=== PATIENT | male | born 1995 | race Caucasian/White ===

== ENCOUNTER 2017-06-06 12:31 | Emergency (ER) | payer SELFPAY ==
[~2017-06-06] VITALS: Ht 185.4 cm; Wt 104.1 kg
[2017-06-06 12:37] VITALS: TEMP 37.3; Ht 185.4 cm; Wt 104.1 kg
[2017-06-06] MEDS ORDERED: PROCHLORPERAZINE 5 MG/ML 2 ML VIAL IV STA (13:18)
[2017-06-06] MEDS ORDERED: DiphenhydrAMINE HCL 50 MG/ML VIAL IV STA (13:18)
[2017-06-06] MEDS ORDERED: KETOROLAC TROMETHAMINE 30 MG/ML VIAL IV STA (13:18)
--- NOTE | 2017-06-06 13:50 | DIAGNOSTIC IMAGING REPORT ---
CHEST ONE VIEW PORTABLE CLINICAL HISTORY: sob, fever COMPARISON STUDY: 01/18/2016 FINDINGS: The bones soft tissues and hemidiaphragms are normal. The cardiomediastinal silhouette is normal. The lungs are clear. The pulmonary vasculature is normal. IMPRESSION: Negative chest. The above report was generated using voice recognition software. It may contain grammatical, syntax or spelling errors. Electronically signed by: Mark Pierce M.D. 06/06/2017 1:49 PM Dictated Date/Time: 06/06/2017 1:48 PM
[2017-06-06 13:56] LABS: BASO % 0.3 %; BASO ABS # 0.02 K/uL (0-0.2); COMPLETE YES; EOS % 3.2 %; HEMATOCRIT 38.5 % (42-52); IG% 0.3 %; LYMPH % 19.1 %; LYMPH ABS # 1.24 K/uL (1.2-3.4); MEAN CELL VOLUME 94.6 fL (80-100); MEAN CORPUSCULAR HEMOGLOBIN 33.4 pg (25-34); MEAN CORPUSCULAR HGB CONC 35.3 g/dl (32-36); MEAN PLATELET VOLUME 10.1 fL (7.4-10.4); MONO % 8.8 %; NEUT % 68.3 %; PLATELET COUNT 181 K/uL (130-400); RED BLOOD COUNT 4.07 M/uL (4.7-6.1); WHITE BLOOD COUNT 6.49 K/uL (4.8-10.8)
[2017-06-06 14:15] LABS: BUN/CREATININE RATIO 10.4 (10-20); CALCIUM 8.8 mg/dl (8.5-10.1); CREATININE 0.96 mg/dl (0.60-1.40); POTASSIUM 4.2 mmol/L (3.5-5.1)
[2017-06-06 14:34] VITALS: BP 121/64; PULSE 60; O2SAT 97
--- NOTE | 2017-06-06 14:47 | EMERGENCY ROOM VISIT NOTE ---
History First contact with patient: 13:04 Chief Complaint: HEADACHE Stated Complaint: CONSTANT LAFLEUR, CHEST PAIN, SORE THROAT History of Present Illness The patient is a 22 year old male who presents to the Emergency Room with complaints of headache 4 days. The patient states that he has had a constant headache for the past 4 days. He attempted to go to work today but states that he was unable to due to the pain. He has been lightheaded and states that his eyes are sensitive to touch. The patient also notes that he has had shortness of breath, fever, sore throat and stuffy nose. He believes the fever has resolved. He states the headache is all over his head. He does typically have headaches frequently, but states that they usually do not last as long as this. He denies any history of migraines. The patient does not have a primary care provider in the area. He states he is healthy. He denies neck pain/stiffness, numbness or weakness, chest pain or cough. He rates his overall discomfort a 7/ 10. He has tried over the counter medication without relief. He denies any nausea or vomiting. Review of Systems A complete 10 point review of systems was reviewed with the patient with pertinent positives and negatives as per history of present illness. All else were negative. Past Medical/Surgical History Medical Problems: (1) Cannabis Abuse-Unspec (2) Drug Abuse Nec-Unspec (3) Tobacco Use Disorder Family History Diabetes mellitus Social History Smoking Status: Current Every Day Smoker Alcohol Use: none Drug Use: marijuana, other Marital Status: Housing Status: lives with family Occupation Status: student Current/Historical Medications No Active Prescriptions or Reported Meds Physical Exam Vital Signs Date Time Temp Pulse Resp B/P (MAP) Pulse Ox O2 Delivery O2 Flow Rate FiO2 06/06/17 14:34 60 18 121/64 97 Room Air 06/06/17 13:39 68 16 130/71 100 Room Air 06/06/17 12:37 37.3 93 17 144/72 97 Room Air Physical Exam VITALS: Vitals are noted on the nurse's note and reviewed by myself. Vital signs stable. GENERAL: This is a 22-year-old male, in no acute distress, nondiaphoretic, well- developed well-nourished. SKIN: The skin was without rashes. HEAD: Normocephalic atraumatic. EARS: External auditory canals clear, tympanic membranes pearly russo without erythema or effusion bilaterally. EYES: Pupils equal round and reactive to light and accommodation. Conjunctivae without injection, sclerae without icterus. Extraocular movements intact. NOSE: Patent, turbinates without inflammation or discharge. MOUTH: Mucous membranes moist. Tonsils are not enlarged. Pharynx without erythema or exudate. NECK: Supple without nuchal rigidity. No lymphadenopathy. Cervical spine is nontender. No meningismus. HEART: Regular rate and rhythm without murmurs gallops or rubs. LUNGS: Clear to auscultation bilaterally without wheezes, rales or rhonchi. MUSCULOSKELETAL: Full range of motion in all extremities. Strength 5/5 throughout. NEURO: Patient was alert and oriented to person place and time. Normal sensation to light and sharp touch. No focal neurological deficits. Medical Decision & Procedures ER Provider Diagnostic Interpretation: CHEST ONE VIEW PORTABLE CLINICAL HISTORY: sob, fever COMPARISON STUDY: 01/18/2016 FINDINGS: The bones soft tissues and hemidiaphragms are normal. The cardiomediastinal silhouette is normal. The lungs are clear. The pulmonary vasculature is normal. IMPRESSION: Negative chest. Laboratory Results 06/06/17 13:30 Red Blood Count 4.07, Mean Corpuscular Volume 94.6, Mean Corpuscular Hemoglobin 33.4, Mean Corpuscular Hemoglobin Concent 35.3, Mean Platelet Volume 10.1, Neutrophils (%) (Auto) 68.3, Lymphocytes (%) (Auto) 19.1, Monocytes (%) (Auto) 8.8, Eosinophils (%) (Auto) 3.2, Basophils (%) (Auto) 0.3, Neutrophils # (Auto) 4.43, Lymphocytes # (Auto) 1.24, Monocytes # (Auto) 0.57, Eosinophils # (Auto) 0.21, Basophils # (Auto) 0.02 06/06/17 13:30 Test 06/06/17 13:30 06/06/17 13:35 White Blood Count 6.49 K/uL (4.8-10.8) Red Blood Count 4.07 M/uL (4.7-6.1) Hemoglobin 13.6 g/dL (14.0-18.0) Hematocrit 38.5 % (42-52) Mean Corpuscular Volume 94.6 fL (80-100) Mean Corpuscular Hemoglobin 33.4 pg (25-34) Mean Corpuscular Hemoglobin Concent 35.3 g/dl (32-36) Platelet Count 181 K/uL (130-400) Mean Platelet Volume 10.1 fL (7.4-10.4) Neutrophils (%) (Auto) 68.3 % Lymphocytes (%) (Auto) 19.1 % Monocytes (%) (Auto) 8.8 % Eosinophils (%) (Auto) 3.2 % Basophils (%) (Auto) 0.3 % Neutrophils # (Auto) 4.43 K/uL (1.4-6.5) Lymphocytes # (Auto) 1.24 K/uL (1.2-3.4) Monocytes # (Auto) 0.57 K/uL (0.11-0.59) Eosinophils # (Auto) 0.21 K/uL (0-0.5) Basophils # (Auto) 0.02 K/uL (0-0.2) RDW Standard Deviation 42.2 fL (36.4-46.3) RDW Coefficient of Variation 12.4 % (11.5-14.5) Immature Granulocyte % (Auto) 0.3 % Immature Granulocyte # (Auto) 0.02 K/uL (0.00-0.02) Anion Gap 4.0 mmol/L (3-11) Est Creatinine Clear Calc Drug Dose 150.3 ml/min Estimated GFR () 127.7 Estimated GFR (Non- 110.2 BUN/Creatinine Ratio 10.4 (10-20) Calcium Level 8.8 mg/dl (8.5-10.1) Total Bilirubin 0.4 mg/dl (0.2-1) Aspartate Amino Transf (AST/SGOT) 19 U/L (15-37) Alanine Aminotransferase (ALT/SGPT) 23 U/L (12-78) Alkaline Phosphatase 53 U/L (45-117) Total Protein 7.3 gm/dl (6.4-8.2) Albumin 3.6 gm/dl (3.4-5.0) Globulin 3.7 gm/dl (2.5-4.0) Albumin/Globulin Ratio 1.0 (0.9-2) Influenza Type A Antigen Neg for Influ A (NEG) Influenza Type B Antigen Neg for Influ B (NEG) Medications Administered Medications (Trade) Dose Ordered Sig/Chiqui Route Start Time Stop Time Status Last Admin Dose Admin Ketorolac Tromethamine (Toradol Inj) 30 mg NOW STAT IV 06/06/17 13:18 06/06/17 13:20 DC 06/06/17 13:31 30 MG Prochlorperazine Edisylate (Compazine Inj) 10 mg NOW STAT IV 06/06/17 13:18 06/06/17 13:20 DC 06/06/17 13:31 10 MG Diphenhydramine HCl (Benadryl Inj) 25 mg NOW STAT IV 06/06/17 13:18 06/06/17 13:20 DC 06/06/17 13:31 25 MG Medical Decision The differential diagnosis includes acute intracranial bleed, meningitis, encephalitis, mass or mass effect, sinusitis, infection, tumor, headache, temporal arteritis and carbon monoxide exposure, and migraine. The patient is a 22-year-old male who presents today complaining of headache and flulike symptoms. Patient is afebrile on exam. No evidence of meningismus. Labs revealed no leukocytosis, anemia or concerning electrolyte abnormalities. Influenza testing was negative. This is not the worst headache of the patient's life and there are no neurological complaints concerning for subarachnoid hemorrhage. Patient was treated with Toradol, Benadryl and Compazine and on reevaluation was sleeping and had improvement of symptoms. Patient was encouraged to continue [id number] medications at home and follow-up with a primary care provider as needed. Based on the patient's presentation and work up, I feel the patient is stable for outpatient treatment. The patient was educated to return to the emergency department for any worsening of their current condition or new/concerning symptoms. He will follow up with primary care provider. Medication Reconcilliation Current Medication List: was personally reviewed by me Blood Pressure Screening Patient's blood pressure: Normal blood pressure Impression Primary Impression: Headache Departure Information Dispostion Home / Self-Care Condition GOOD Prescriptions No Active Prescriptions or Reported Meds Referrals No Doctor, Assigned (PCP) Patient Instructions My [facility] Additional Instructions You have been treated in the Emergency Department for a Headache. You have received pain medicine in the emergency department which impairs your ability to operate a vehicle. It is illegal for you to drive after receiving these medicines. For pain control, you can use the following zmdh-cio-zqfernt medicines (if >12 yo): - Regular strength (325mg/tab) Tylenol (acetaminophen) 2 tabs every 4-6 hours as needed. Do not exceed 12 tablets in a 24 hour period. Avoid taking more than 4 grams (4000 mg) of Tylenol per day. This includes any other sources of acetaminophen you may take on a regular basis. - Regular strength (200 mg/tab) Advil (ibuprofen) 1-2 tabs every 4-6 hours as needed. Do not exceed a dose of 3200 mg per day. You may try an xxos-koo-[id number] medication such as Excedrin migraine for relief of your headache. You should relax in a quiet, dark place for the rest of the day. Avoid any possible triggers including: cigarette smoke, caffeine, nicotine, chocolate, wine, beer, loud noises or music, or bright lights. You should establish care with a primary care provider and call for a follow-up appointment. Return to the Emergency Department if your current symptoms worsen despite treatment course outlined above, or if you develop any of the following symptoms : intractable pain despite aforementioned treatment course, visual disturbances , loss of vision, unilateral weakness or facial drooping, slurring of speech, loss of coordination, or loss of consciousness. Problem Qualifiers Primary Impression: Headache
== END 2017-06-06 14:57 | disposition home or self-care (01) ==
LOC: C.EDB 12:32 → C.EDC 14:57
DX: R51 Headache (principal); F17.200 Nicotine dependence, unspecified, uncomplicated; F12.10 Cannabis abuse, uncomplicated; Z83.3 Family history of diabetes mellitus

== ENCOUNTER 2017-06-11 17:52 | Emergency (ER) | payer SELFPAY ==
[~2017-06-11] VITALS: Ht 188 cm; Wt 103.5 kg
[2017-06-11 17:56] VITALS: TEMP 37; Ht 188 cm; Wt 103.5 kg
[2017-06-11] MEDS ORDERED: DOXYCYCLINE HYCLATE 100 MG CAP PO STA (18:19)
[2017-06-11] MEDS ORDERED: AZITHROMYCIN 250 MG TAB PO STA (18:28)
[2017-06-11] MEDS ORDERED: DOXY100C PO (18:29)
[2017-06-11] MEDS ORDERED: CEFTRIAXONE SOD 350MG/ML 1 GM VIAL IM ONE (18:30)
--- NOTE | 2017-06-11 18:36 | EMERGENCY ROOM VISIT NOTE ---
History Report prepared by Nicky: [employer] Under the Supervision of: Dr. Venu Barnhart M.D. First contact with patient: 18:12 Chief Complaint: STD MALE Stated Complaint: REFERRED Nursing Triage Summary: Pt reports sore throat, fatigue, bloody drainage from penis x 2 weeks. Exposed to someone with gonorrhea approx 2 mos ago. History of Present Illness The patient is a 22 year old male who presents to the Emergency Room with complaints of worsening penile discharge beginning a few days ago. He also complains of burning with urination, and fatigue. He had a known exposure to Gonorrhea two weeks ago. The patient states that the exposure was sexual with his female friend who he has known for a long time. His friend had STD testing which was only positive for Gonorrhea. He has no prior history of STD. The patient had a sore throat last week, but it has since resolved. Source of History: patient Onset: A few days ago Position: other (penis) Quality: other (discharge) Timing: worsening Associated Symptoms: + sorethroat (resolved), + urinary symptoms (burning with urination), + fatigue Review of Systems See HPI for pertinent positives & negatives. A total of 10 systems reviewed and were otherwise negative. Past Medical & Surgical Medical Problems: (1) Cannabis Abuse-Unspec (2) Drug Abuse Nec-Unspec (3) Tobacco Use Disorder Family History Diabetes mellitus Social History Smoking Status: Current Every Day Smoker Alcohol Use: none Drug Use: marijuana, other Marital Status: Housing Status: lives with family Occupation Status: student Current/Historical Medications Scheduled Doxycycline Hyclate (Vibramycin), 100 MG PO BID Allergies Coded Allergies: Penicillins (Unverified Allergy, Unknown, stomach issues, 06/06/17) Physical Exam Vital Signs Date Time Temp Pulse Resp B/P (MAP) Pulse Ox O2 Delivery O2 Flow Rate FiO2 06/11/17 17:56 37.0 86 18 133/82 99 Room Air Physical Exam GENERAL: Patient is in no acute distress. HEENT: No acute trauma, normocephalic atraumatic, mucous membranes moist, no nasal congestion, no scleral icterus. No throat erythema or exudate. NECK: No stridor, no adenopathy, no meningismus, trachea is midline. LUNGS: Clear to auscultation bilaterally, no wheeze, no rhonchi, breath sounds equal. HEART: Without murmurs gallops or rubs, regular rate and rhythm. ABDOMEN: Soft, nontender, bowel sounds positive, no hernias, no peritonitis. : Circumcised. Cloudy, greenish discharge from the penile meatus. No cellulitis. EXTREMITIES: No cyanosis or edema, full range of motion of all the joints without pain or difficulty, no signs for acute trauma. NEUROLOGIC: Oriented x 3, no acute motor or sensory deficits, no focal weakness. SKIN: No rash, no jaundice, no diaphoresis. Medical Decision & Procedures Laboratory Results Test 06/11/17 18:19 Laboratory results reviewed by me. ED Course 1812: The patient was evaluated in room C8. A complete history and physical exam was performed. 1818: Ordered Vibramycin Cap 100 mg PO. 1827: Ordered Zithromax Tab 1000 mg PO. 1829: Ordered Rocephin 500 mg IM. 1844: Reevaluated the patient. Discussed results and discharge instructions: he verbalized understanding and agreement. The patient is ready for discharge. Medical Decision The patient is a 22 year old male who presents to the ED with complaints of penile discharge. Differential diagnoses considered include STD, UTI, syphilis , scrotal cellulitis, and balanitis. The patient presents with penile discharge. He had a sexual encounter 2 weeks ago-this female has since tested positive for gonorrhea. The patient states that he feels fatigued. He has burning to urinate and penile discharge that he has noticed especially on his underwear. He has not had fever or vomiting. On exam, the patient does have penile discharge consistent with an STD. The patient was given oral Zithromax, oral doxycycline and IM ceftriaxone. I did order for a syphilis test, this result is pending. The patient is being discharged on doxycycline, twice a day for 2 weeks. He will return here for lack of improvement or if worsening. He will call here tomorrow for the syphilis testing result. Medication Reconcilliation Current Medication List: was personally reviewed by me Blood Pressure Screening Patient's blood pressure: Normal blood pressure Blood pressure disposition: Did not require urgent referral Impression Primary Impression: STD (male) Additional Impression: Penile discharge Scribe Attestation The scribe's documentation has been prepared under my direction and personally reviewed by me in its entirety. I confirm that the note above accurately reflects all work, treatment, procedures, and medical decision making performed by me. Departure Information Dispostion Home / Self-Care Prescriptions Doxycycline Hyclate (VIBRAMYCIN) 100 Mg Cap 100 MG PO BID for 14 Days, #28 CAP Prov: Venu Barnhart M.D. 06/11/17 Referrals No Doctor, Assigned (PCP) Forms HOME CARE DOCUMENTATION FORM, IMPORTANT VISIT INFORMATION, WORK / SCHOOL INSTRUCTIONS Patient Instructions My [facility] Additional Instructions return if worsening as we discussed call here for the syphilis testing tomorrow---[phone] motrin or tylenol for pain fluids doxycycline 2x per day for 2 weeks Problem Qualifiers
[2017-06-11 19:03] VITALS: BP 128/78; PULSE 80; O2SAT 100
== END 2017-06-11 18:58 | disposition home or self-care (01) ==
LOC: C.EDB 17:53 → C.EDC 18:58
DX: A64 Unspecified sexually transmitted disease (principal); R36.9 Urethral discharge, unspecified; F12.10 Cannabis abuse, uncomplicated; F17.210 Nicotine dependence, cigarettes, uncomplicated; Z83.3 Family history of diabetes mellitus

== ENCOUNTER 2017-06-12 20:22 | Inpatient (IN) | payer SELFPAY ==
[~2017-06-12] VITALS: Ht 188 cm; Wt 101.2 kg
[~2017-06-12 20:22] MED LIST: DOXY100C PO
[2017-06-12] MEDS ORDERED: ONDANSETRON INJ 2 MG/ML 2 ML VIAL IV STA (20:49)
[2017-06-12] MEDS ORDERED: ACETAMINOPHEN IV 100 ML IV STA (20:49)
[2017-06-12] MEDS ORDERED: MoRPHine SULFATE 10 MG/ML CARP/VIAL IV STA (20:49)
[2017-06-12] MEDS ORDERED: SODIUM CHLORIDE 0.9% 1000ML 1,000 ML IV STA (20:49)
--- NOTE | 2017-06-12 20:58 | EMERGENCY ROOM VISIT NOTE ---
History First contact with patient: 20:41 Chief Complaint: ABDOMINAL PAIN Stated Complaint: SEVERE RIGHT TORSO PAIN - HARD TO BREATH History of Present Illness The patient is a 22 year old male who presents to the Emergency Room with complaints of right flank pain that started suddenly 2 hours ago. He reports he was started on treatment for a UTI yesterday, on doxycycline. He has associated nausea, but denies vomiting. He states the pain starts in his right mid back and radiates down his right side to his groin area, constant, sharp and severe, worse with certain positions and taking a deep breath, can't seem to get comfortable, 10/10. He states the pain is also worse with ambulating or raising his right leg. He took some Excedrin today which he states did not help at all. He states he has never had any pain like this before. He denies any fevers/chills, chest pain, shortness of breath, palpitations, dizziness or passing out, cough or congestion, leg pain or swelling, recent long travel or surgeries, diarrhea, constipation, blood in stool, dysuria, hematuria, or rash. He denies any history of blood clots. Review of Systems A complete 10 point review of systems was reviewed with the patient with pertinent positives and negatives as per history of present illness. All else were negative. Past Medical/Surgical History Medical Problems: (1) Cannabis Abuse-Unspec (2) Drug Abuse Nec-Unspec (3) Tobacco Use Disorder Family History Diabetes mellitus Social History Smoking Status: Current Every Day Smoker Alcohol Use: none Drug Use: marijuana, other Marital Status: Housing Status: lives with family Occupation Status: student Current/Historical Medications Scheduled Doxycycline Hyclate (Vibramycin), 100 MG PO BID Allergies PCN Physical Exam Vital Signs Date Time Temp Pulse Resp B/P (MAP) Pulse Ox O2 Delivery O2 Flow Rate FiO2 06/12/17 23:17 37.4 87 18 127/64 97 Room Air 06/12/17 22:28 82 25 134/70 95 Room Air 06/12/17 21:39 97 06/12/17 20:36 37.6 107 20 148/63 98 Room Air Physical Exam CONSTITUTIONAL: No acute distress, but appears very uncomfortable and in pain, holding his right sided, rocking back and forth on the stretcher. Alert and oriented X 4. HEENT: Normocephalic, atraumatic. Pupils equal, round and reactive to light, EOMI. TMs normal. Pharynx normal. NECK: Supple, full active range of motion without discomfort. RESPIRATORY: Clear to auscultation bilaterally with no wheezing, crackles, rhonchi or stridor. Equal expansion bilaterally. CARDIOVASCULAR: Regular rate and rhythm with no murmurs, rubs or gallops. Normal peripheral perfusion. No edema. GASTROINTESTINAL: Significantly tender in the right flank and lateral abdomen diffusely, no rebound tenderness, positive guarding. Right CVA tenderness. Soft, nondistended. Bowel sounds present in all quadrants. MUSCULOSKELETAL: Full range of motion of all joints without discomfort. INTEGUMENTARY: No rash or other significant dermatologic conditions noted. NEUROLOGIC: Cranial nerves II-XII grossly intact. No focal neurologic deficits noted. Medical Decision & Procedures ER Provider Diagnostic Interpretation: ABDOMEN AND PELVIS CT WITHOUT CONTRAST CT DOSE: 1640.02 mGy.cm HISTORY: Right-sided Flank pain, eval for stone, pyelo TECHNIQUE: Multiaxial CT images of the abdomen and pelvis were performed without the use of intravenous and oral contrast according to the standard department stone protocol. A dose lowering technique was utilized adhering to the principles of ALARA. COMPARISON STUDY: Abdomen and pelvis CT 01/18/2016. FINDINGS: There is a punctate stone within the right kidney. No left renal calculi. No ureteral calculi. No hydronephrosis. The left lung base is clear. Trace right pleural effusion. Patchy groundglass densities within the right lung base posteriorly. Punctate calcified granuloma within the right lung base. Bilateral L5 spondylolysis. A few punctate calcified granulomas within the spleen. The unenhanced liver, pancreas, gallbladder, and adrenal glands are unremarkable. No retroperitoneal lymphadenopathy. Suboptimal evaluation for bowel pathology due to the lack of intravenous and oral contrast. However, there is no definite bowel wall thickening or obstruction. IMPRESSION: 1. Right-sided nephrolithiasis. No ureteral stones. No hydronephrosis. 2. No definite bowel wall thickening or obstruction. 3. Trace right pleural effusion. There is also patchy groundglass airspace opacities within the right lung base posteriorly. This may represent a developing pneumonia or atelectasis. 4. Normal appendix. Laboratory Results 06/12/17 21:15 Red Blood Count 3.77, Mean Corpuscular Volume 94.4, Mean Corpuscular Hemoglobin 33.2, Mean Corpuscular Hemoglobin Concent 35.1, Mean Platelet Volume 9.6, Neutrophils (%) (Auto) 63.2, Lymphocytes (%) (Auto) 24.6, Monocytes (%) (Auto) 10.0, Eosinophils (%) (Auto) 1.7, Basophils (%) (Auto) 0.2, Neutrophils # (Auto ) 7.39, Lymphocytes # (Auto) 2.87, Monocytes # (Auto) 1.17, Eosinophils # (Auto ) 0.20, Basophils # (Auto) 0.02 06/12/17 21:15 Test 06/12/17 21:15 06/12/17 21:35 06/12/17 23:50 White Blood Count 11.68 K/uL (4.8-10.8) Red Blood Count 3.77 M/uL (4.7-6.1) Hemoglobin 12.5 g/dL (14.0-18.0) Hematocrit 35.6 % (42-52) Mean Corpuscular Volume 94.4 fL (80-100) Mean Corpuscular Hemoglobin 33.2 pg (25-34) Mean Corpuscular Hemoglobin Concent 35.1 g/dl (32-36) Platelet Count 241 K/uL (130-400) Mean Platelet Volume 9.6 fL (7.4-10.4) Neutrophils (%) (Auto) 63.2 % Lymphocytes (%) (Auto) 24.6 % Monocytes (%) (Auto) 10.0 % Eosinophils (%) (Auto) 1.7 % Basophils (%) (Auto) 0.2 % Neutrophils # (Auto) 7.39 K/uL (1.4-6.5) Lymphocytes # (Auto) 2.87 K/uL (1.2-3.4) Monocytes # (Auto) 1.17 K/uL (0.11-0.59) Eosinophils # (Auto) 0.20 K/uL (0-0.5) Basophils # (Auto) 0.02 K/uL (0-0.2) RDW Standard Deviation 40.8 fL (36.4-46.3) RDW Coefficient of Variation 12.0 % (11.5-14.5) Immature Granulocyte % (Auto) 0.3 % Immature Granulocyte # (Auto) 0.03 K/uL (0.00-0.02) Anion Gap 8.0 mmol/L (3-11) Est Creatinine Clear Calc Drug Dose 138.3 ml/min Estimated GFR () 113.3 Estimated GFR (Non- 97.8 BUN/Creatinine Ratio 13.2 (10-20) Lactic Acid Level 1.0 mmol/L (0.4-2.0) Calcium Level 8.7 mg/dl (8.5-10.1) Total Bilirubin 0.3 mg/dl (0.2-1) Direct Bilirubin < 0.1 mg/dl (0-0.2) Aspartate Amino Transf (AST/SGOT) 11 U/L (15-37) Alanine Aminotransferase (ALT/SGPT) 20 U/L (12-78) Alkaline Phosphatase 57 U/L (45-117) Total Protein 6.9 gm/dl (6.4-8.2) Albumin 3.4 gm/dl (3.4-5.0) Lipase 130 U/L (73-393) Urine Color YELLOW Urine Appearance CLEAR (CLEAR) Urine pH 6.5 (4.5-7.5) Urine Specific [place] 1.012 (1.000-1.030) Urine Protein NEG (NEG) Urine Glucose (UA) NEG (NEG) Urine Ketones NEG (NEG) Urine Occult Blood NEG (NEG) Urine Nitrite NEG (NEG) Urine Bilirubin NEG (NEG) Urine Urobilinogen NEG (NEG) Urine Leukocyte Esterase TRACE (NEG) Urine WBC (Auto) 5-10 /hpf (0-5) Urine RBC (Auto) 0-4 /hpf (0-4) Urine Hyaline Casts (Auto) 0 /lpf (0-5) Urine Epithelial Cells (Auto) 0-5 /lpf (0-5) Urine Bacteria (Auto) NEG (NEG) Medications Administered Medications (Trade) Dose Ordered Sig/Chiqui Route Start Time Stop Time Status Last Admin Dose Admin Sodium Chloride 1,000 ml @ 999 mls/hr Q1H1M STAT IV 06/12/17 20:49 06/12/17 21:49 DC 06/12/17 21:26 999 MLS/HR Ondansetron HCl (Zofran Inj) 4 mg NOW STAT IV 06/12/17 20:49 06/12/17 20:52 DC 06/12/17 21:32 4 MG Morphine Sulfate (MoRPHine SULFATE INJ) 6 mg NOW STAT IV 06/12/17 20:49 06/12/17 20:52 DC 06/12/17 21:29 6 MG Acetaminophen 100 ml @ 400 mls/hr NOW STAT IV 06/12/17 20:49 06/12/17 21:03 DC 06/12/17 21:35 400 MLS/HR Morphine Sulfate (MoRPHine SULFATE INJ) 4 mg NOW STAT IV 06/12/17 23:21 06/12/17 23:22 DC 06/12/17 23:28 4 MG Medical Decision CC: Patient presenting with complaint of right flank pain Interpretation of Labs: Mild leukocytosis, mild anemia, no significant electrolyte abnormalities, normal renal function, normal liver enzymes and lipase. Lactic acid normal. UA negative for infection. Differential Diagnosis: Includes, but not limited to ureteral stone, ureteral colic, UTI, pyelonephritis, cholecystitis, cholelithiasis, gastroenteritis, appendicitis, pancreatitis, PE, pneumonia, among others. Medication Reconciliation: I attest that I have personally reviewed the patient' s current medication list. Vital signs review: I reviewed the patient's vital signs and interpret them as follows: T: Afebrile; BP: Hypertensive; HR: Tachycardic; RR: Within normal limits; Pulse Ox: Within normal limits on room air. Blood pressure screening: The patient was found to have an elevated blood pressure, improving after treatment of pain, this was felt to be situational. Summary: Patient was evaluated at bedside, history and physical exam performed. Patient is alert, appears in significant pain, holding his right side and rocking back and forth on the stretcher, moaning. He is diffusely tender on the right side of his abdomen and flank area. Positive CVA tenderness. No rebound tenderness. Review of the chart reveals the patient was here yesterday with complaint of penile discharge and concern for gonorrhea infection, he was treated with IM ceftriaxone and sent home on doxycycline. Also noted within the chart the patient has a history of drug abuse. Orders were placed at bedside for labs, UA, IV fluids for hydration, IV morphine and Ofirmev for pain, IV Zofran for nausea, and CT abdomen/pelvis to evaluate for ureteral stone and other abdominal pathology,. Patient discussed with Dr. Guillaume, who agrees with my assessment and plan. Labs reviewed as above, no significant abnormalities CT abdomen/pelvis imaging shows small stone within the kidney, no ureteral stones or hydronephrosis, no appendicitis. No specific explanation for patient' s right flank pain. There is mention of a trace right pleural effusion, which may represent atelectasis or early pneumonia. Given the persistent right flank pain with no explanation on CT abdomen/pelvis, I do not feel I can fully rule out PE. This was discussed with Dr. Guillaume, who recommended CT of the chest to eval for PE. Patient was updated on all results thus far and plan for CT of the chest, he verbalized understanding and was agreeable to this plan. He reports that his pain has been better controlled after the morphine. He is resting comfortably in the stretcher on reassessment. His tachycardia and hypertension are improved. CTA chest shows subsegmental PE in the right lung base. Discussed these findings with Dr. Guillaume. Will do bilateral LE duplex scans and additional coag studies. I discussed all results with the patient, and plan for additional workup. He verbalized understanding. He states that his pain remains well controlled at this time. If patient remains stable and pain controlled, will most likely be able to be discharged him home on Xarelto with close follow up. Patient signed out to Luther Lara PA-C, at 11:50 PM, pending additional labs and duplex studies. Medication Reconcilliation Current Medication List: was personally reviewed by me Blood Pressure Screening Patient's blood pressure: Elevated blood pressure Blood pressure disposition: Elevated BP felt to be situational Impression Primary Impression: Right pulmonary embolus Departure Information Dispostion Still a Patient (signed out at change of shift) Condition GOOD Referrals No Doctor, Assigned (PCP) Patient Instructions My [facility]
[2017-06-12 21:32] LABS: BASO % 0.2 %; BASO ABS # 0.02 K/uL (0-0.2); COMPLETE YES; EOS % 1.7 %; HEMATOCRIT 35.6 % (42-52); IG% 0.3 %; LYMPH % 24.6 %; LYMPH ABS # 2.87 K/uL (1.2-3.4); MEAN CELL VOLUME 94.4 fL (80-100); MEAN CORPUSCULAR HEMOGLOBIN 33.2 pg (25-34); MEAN CORPUSCULAR HGB CONC 35.1 g/dl (32-36); MEAN PLATELET VOLUME 9.6 fL (7.4-10.4); NEUT % 63.2 %; PLATELET COUNT 241 K/uL (130-400); RED BLOOD COUNT 3.77 M/uL (4.7-6.1); WHITE BLOOD COUNT 11.68 K/uL (4.8-10.8)
[2017-06-12 21:51] LABS: ALT/SGPT 20 U/L (12-78); BLOOD UREA NITROGEN 14 mg/dl (7-18); BUN/CREATININE RATIO 13.2 (10-20); CALCIUM 8.7 mg/dl (8.5-10.1); CARBON DIOXIDE 29 mmol/L (21-32); CHLORIDE 100 mmol/L (98-107); CREATININE 1.06 mg/dl (0.60-1.40); GLUCOSE 98 mg/dl (70-99); POTASSIUM 4.1 mmol/L (3.5-5.1); SODIUM 137 mmol/L (136-145)
[2017-06-12 21:54] LABS: ALKALINE PHOSPHATASE 57 U/L (45-117); AST/SGOT 11 U/L (15-37)
[2017-06-12 22:01] LABS: URINE APPEARANCE CLEAR (CLEAR); URINE BILIRUBIN NEG (NEG); URINE COLOR YELLOW; URINE EPITHELIAL CELL AUTO 0-5 /lpf (0-5); URINE NITRITE NEG (NEG); URINE PH 6.5 (4.5-7.5); URINE SPECIFIC GRAVITY 1.012 (1.000-1.030); UROBILINOGEN NEG (NEG); ZZUR CULT IF INDIC CLEAN CATCH NO
[2017-06-12 22:02] LABS: MANUAL MICROSCOPIC REQUIRED? NO; REVIEW REQ? NO
--- NOTE | 2017-06-12 22:21 | DIAGNOSTIC IMAGING REPORT ---
ABDOMEN AND PELVIS CT WITHOUT CONTRAST CT DOSE: 1640.02 mGy.cm HISTORY: Right-sided Flank pain, eval for stone, pyelo TECHNIQUE: Multiaxial CT images of the abdomen and pelvis were performed without the use of intravenous and oral contrast according to the standard department stone protocol. A dose lowering technique was utilized adhering to the principles of ALARA. COMPARISON STUDY: Abdomen and pelvis CT 01/18/2016. FINDINGS: There is a punctate stone within the right kidney. No left renal calculi. No ureteral calculi. No hydronephrosis. The left lung base is clear. Trace right pleural effusion. Patchy groundglass densities within the right lung base posteriorly. Punctate calcified granuloma within the right lung base. Bilateral L5 spondylolysis. A few punctate calcified granulomas within the spleen. The unenhanced liver, pancreas, gallbladder, and adrenal glands are unremarkable. No retroperitoneal lymphadenopathy. Suboptimal evaluation for bowel pathology due to the lack of intravenous and oral contrast. However, there is no definite bowel wall thickening or obstruction. IMPRESSION: 1. Right-sided nephrolithiasis. No ureteral stones. No hydronephrosis. 2. No definite bowel wall thickening or obstruction. 3. Trace right pleural effusion. There is also patchy groundglass airspace opacities within the right lung base posteriorly. This may represent a developing pneumonia or atelectasis. 4. Normal appendix. Electronically signed by: Tre Metcalf M.D. 06/12/2017 10:20 PM Dictated Date/Time: 06/12/2017 10:13 PM
[2017-06-12] MEDS ORDERED: OPTIRAY 320 IV PRN (23:00)
[2017-06-12] MEDS ORDERED: MoRPHine SULFATE 4 MG/ML 1 ML CARP\\VIAL IV STA (23:21)
[2017-06-13 00:46] LABS: PARTIAL THROMBOPLASTIN RATIO 1.1; PROTHROMBIN TIME (PATIENT) 11.2 SECONDS (9.0-12.0)
[2017-06-13] MEDS ORDERED: SODIUM CHLORIDE 0.9% 1000ML 1,000 ML IV STA (01:41)
[2017-06-13 02:02] LABS: BENZODIAZEPINE, URINE NEG (NEG); COCAINE,URINE NEG (NEG); PHENCYCLIDINE, URINE NEG (NEG)
[2017-06-13 02:22] LABS: MAGNESIUM 1.9 mg/dl (1.8-2.4); TOTAL IRON BINDING CAPACITY 249 mcg/dl (250-450)
[2017-06-13] MEDS ORDERED: KETOROLAC TROMETHAMINE 30 MG/ML VIAL IV STA (02:37)
[2017-06-13] MEDS ORDERED: MoRPHine SULFATE 2 MG/ML CARP IV PRN (02:45)
[2017-06-13] MEDS ORDERED: IBUPROFEN 200 MG TAB PO PRN (02:45)
[2017-06-13] MEDS ORDERED: LIDODERM (LIDOCAINE) PATCH 5% TD STA (02:47)
[2017-06-13] MEDS ORDERED: hydrOXYzine HCL 10 MG TAB PO PRN (04:00)
[2017-06-13] MEDS ORDERED: ONDANSETRON INJ 2 MG/ML 2 ML VIAL IV PRN (04:00)
[2017-06-13] MEDS ORDERED: ACETAMINOPHEN 325 MG TAB PO PRN (04:00)
[2017-06-13 04:10] LABS: C-REACTIVE PROTEIN 2.79 mg/dl (0-0.29)
--- NOTE | 2017-06-13 04:13 | EMERGENCY ROOM VISIT NOTE ---
History First contact with patient: 02:00 Chief Complaint: ABDOMINAL PAIN Stated Complaint: SEVERE RIGHT TORSO PAIN - HARD TO BREATH Nursing Triage Summary: Pt. reports right sided flank pain & abdominal pain associated with nausea. History of Present Illness The patient is a 22 year old male who presents to the Emergency Room with complaints of fever, chills, right-sided chest pain and shortness of breath for the past few days. Pain currently 10 out of 10. Movement and breathing make it worse nothing make it better. No temperature was taken. Patient denies productive cough, abdominal pain, vomiting, diarrhea, back pain, rashes, history of IV drug abuse. I received this patient in signout by Niesha Zaragoza NP for + PE needing pending hypercoagulable workup and reevaluation in stable condition. Review of Systems See HPI for pertinent positives & negatives. A total of 10 systems reviewed and were otherwise negative. Past Medical/Surgical History Medical Problems: (1) Cannabis Abuse-Unspec (2) Drug Abuse Nec-Unspec (3) Tobacco Use Disorder Family History Diabetes mellitus Social History Smoking Status: Current Every Day Smoker Alcohol Use: none Drug Use: marijuana, other Marital Status: Housing Status: lives with family Current/Historical Medications Scheduled Doxycycline Hyclate (Vibramycin), 100 MG PO BID Physical Exam Vital Signs Date Time Temp Pulse Resp B/P (MAP) Pulse Ox O2 Delivery O2 Flow Rate FiO2 06/13/17 03:35 66 14 96 06/13/17 03:30 108/56 06/13/17 03:05 63 14 96 06/13/17 03:02 115/67 06/13/17 02:44 77 16 117/71 98 Room Air 06/13/17 02:35 85 15 96 06/13/17 02:31 117/71 06/13/17 02:05 75 13 98 06/13/17 02:00 84 14 116/67 98 06/13/17 01:40 98 06/13/17 01:31 109/67 06/13/17 01:30 76 16 97 06/13/17 01:17 74 16 121/68 99 Room Air 06/13/17 00:00 128/71 06/12/17 23:50 73 18 95 06/12/17 23:30 123/65 06/12/17 23:20 80 20 98 06/12/17 23:17 37.4 87 18 127/64 97 Room Air 06/12/17 22:28 82 25 134/70 95 Room Air 06/12/17 21:39 97 06/12/17 20:36 37.6 107 20 148/63 98 Room Air Physical Exam VITALS: Vitals are noted on the nurse's note and reviewed by myself. Vital signs low-grade fever GENERAL: White male, in no acute distress, nondiaphoretic, well-developed well- nourished. SKIN: The skin was without rashes, erythema, edema, or bruising. There is no tenting of the skin. Capillary reflex less than 2 seconds. HEAD: Normocephalic atraumatic. EARS: External auditory canals clear, tympanic membranes pearly russo without erythema or effusion bilaterally. EYES: Pupils equal round and reactive to light and accommodation. Conjunctivae without injection, sclerae without icterus. Extraocular movements intact. NOSE: Patent, turbinates without inflammation or discharge. No sinus tenderness. MOUTH: Mucous membranes mildly dry. Pharynx without erythema or exudate. Uvula midline. Airway patent. Tongue does not deviate. NECK: Supple without nuchal rigidity. No lymphadenopathy. No thyromegaly. Cervical spine is nontender. No JVD. HEART: Regular rate and rhythm, concerns for slight murmur on exam. Chest nontender to palpation LUNGS: Clear to auscultation bilaterally without wheezes, rales or rhonchi. No dullness to percussion. No retractions or accessory muscle use. ABDOMEN: Positive bowel sounds x 4. Normal tympanic percussion. Soft, nontender, without masses or organomegaly. Mejia sign negative. No guarding or rebound tenderness. MUSCULOSKELETAL: No muscle atrophy, erythema, or edema noted. NEURO: Patient was alert and oriented to person place and time. Normal sensation to light and sharp touch. No focal neurological deficits. Medical Decision & Procedures Laboratory Results 06/12/17 21:15 Red Blood Count 3.77, Mean Corpuscular Volume 94.4, Mean Corpuscular Hemoglobin 33.2, Mean Corpuscular Hemoglobin Concent 35.1, Mean Platelet Volume 9.6, Neutrophils (%) (Auto) 63.2, Lymphocytes (%) (Auto) 24.6, Monocytes (%) (Auto) 10.0, Eosinophils (%) (Auto) 1.7, Basophils (%) (Auto) 0.2, Neutrophils # (Auto ) 7.39, Lymphocytes # (Auto) 2.87, Monocytes # (Auto) 1.17, Eosinophils # (Auto ) 0.20, Basophils # (Auto) 0.02 06/12/17 21:15 Test 06/11/17 21:35 06/12/17 21:15 06/12/17 21:35 06/13/17 00:14 Urine Opiates Screen NEG (NEG) Urine Methadone, Qualitative NEG (NEG) Urine Barbiturates NEG (NEG) Urine Phencyclidine (PCP) Level NEG (NEG) Ur Amphetamine/Methamphetamine NEG (NEG) MDMA (Ecstasy) Screen NEG (NEG) Urine Benzodiazepines Screen NEG (NEG) Urine Cocaine Metabolite NEG (NEG) Urine Marijuana (THC) NEG (NEG) White Blood Count 11.68 K/uL (4.8-10.8) Red Blood Count 3.77 M/uL (4.7-6.1) Hemoglobin 12.5 g/dL (14.0-18.0) Hematocrit 35.6 % (42-52) Mean Corpuscular Volume 94.4 fL (80-100) Mean Corpuscular Hemoglobin 33.2 pg (25-34) Mean Corpuscular Hemoglobin Concent 35.1 g/dl (32-36) Platelet Count 241 K/uL (130-400) Mean Platelet Volume 9.6 fL (7.4-10.4) Neutrophils (%) (Auto) 63.2 % Lymphocytes (%) (Auto) 24.6 % Monocytes (%) (Auto) 10.0 % Eosinophils (%) (Auto) 1.7 % Basophils (%) (Auto) 0.2 % Neutrophils # (Auto) 7.39 K/uL (1.4-6.5) Lymphocytes # (Auto) 2.87 K/uL (1.2-3.4) Monocytes # (Auto) 1.17 K/uL (0.11-0.59) Eosinophils # (Auto) 0.20 K/uL (0-0.5) Basophils # (Auto) 0.02 K/uL (0-0.2) RDW Standard Deviation 40.8 fL (36.4-46.3) RDW Coefficient of Variation 12.0 % (11.5-14.5) Immature Granulocyte % (Auto) 0.3 % Immature Granulocyte # (Auto) 0.03 K/uL (0.00-0.02) Nucleated RBC Absolute Count (auto) 0.00 K/uL (0-0) Nucleated Red Blood Cells % 0.0 % Erythrocyte Sedimentation Rate 12 mm/hr (0-14) Absolute Reticulocyte Count 0.03 10^6/uL (0.02-0.10) Percent Reticulocyte Count 0.7 % (0.5-2.0) Anion Gap 8.0 mmol/L (3-11) Est Creatinine Clear Calc Drug Dose 138.3 ml/min Estimated GFR () 113.3 Estimated GFR (Non- 97.8 BUN/Creatinine Ratio 13.2 (10-20) Lactic Acid Level 1.0 mmol/L (0.4-2.0) Calcium Level 8.7 mg/dl (8.5-10.1) Magnesium Level 1.9 mg/dl (1.8-2.4) Iron Level 25 mcg/dl (35-175) Total Iron Binding Capacity 249 mcg/dl (250-450) Transferrin 196 mg/dl (200-360) Ferritin 166.0 ng/ml (8.0-388.0) Total Bilirubin 0.3 mg/dl (0.2-1) Direct Bilirubin < 0.1 mg/dl (0-0.2) Aspartate Amino Transf (AST/SGOT) 11 U/L (15-37) Alanine Aminotransferase (ALT/SGPT) 20 U/L (12-78) Alkaline Phosphatase 57 U/L (45-117) Total Creatine Kinase 116 U/L (39-308) Total Protein 6.9 gm/dl (6.4-8.2) Albumin 3.4 gm/dl (3.4-5.0) Lipase 130 U/L (73-393) Procalcitonin < 0.05 ng/ml (0-0.5) Thyroid Stimulating Hormone (TSH) 1.500 uIu/ml (0.300-4.500) Urine Color YELLOW Urine Appearance CLEAR (CLEAR) Urine pH 6.5 (4.5-7.5) Urine Specific [place] 1.012 (1.000-1.030) Urine Protein NEG (NEG) Urine Glucose (UA) NEG (NEG) Urine Ketones NEG (NEG) Urine Occult Blood NEG (NEG) Urine Nitrite NEG (NEG) Urine Bilirubin NEG (NEG) Urine Urobilinogen NEG (NEG) Urine Leukocyte Esterase TRACE (NEG) Urine WBC (Auto) 5-10 /hpf (0-5) Urine RBC (Auto) 0-4 /hpf (0-4) Urine Hyaline Casts (Auto) 0 /lpf (0-5) Urine Epithelial Cells (Auto) 0-5 /lpf (0-5) Urine Bacteria (Auto) NEG (NEG) Prothrombin Time 11.2 SECONDS (9.0-12.0) Prothromb Time International Ratio 1.0 (0.9-1.1) Activated Partial Thromboplast Time 27.6 SECONDS (21.0-31.0) Partial Thromboplastin Ratio 1.1 Test 06/13/17 01:43 06/13/17 02:42 Transferrin % Saturation % (20-50) Troponin I < 0.015 ng/ml (0-0.045) C-Reactive Protein 2.79 mg/dl (0-0.29) Vitamin B12 Level 477 pg/mL (211-911) Folate 12.13 ng/mL (>5.38) Medications Administered Medications (Trade) Dose Ordered Sig/Chiqui Route Start Time Stop Time Status Last Admin Dose Admin Sodium Chloride 1,000 ml @ 999 mls/hr Q1H1M STAT IV 06/12/17 20:49 06/12/17 21:49 DC 06/12/17 21:26 999 MLS/HR Ondansetron HCl (Zofran Inj) 4 mg NOW STAT IV 06/12/17 20:49 06/12/17 20:52 DC 06/12/17 21:32 4 MG Morphine Sulfate (MoRPHine SULFATE INJ) 6 mg NOW STAT IV 06/12/17 20:49 06/12/17 20:52 DC 06/12/17 21:29 6 MG Acetaminophen 100 ml @ 400 mls/hr NOW STAT IV 06/12/17 20:49 06/12/17 21:03 DC 06/12/17 21:35 400 MLS/HR Morphine Sulfate (MoRPHine SULFATE INJ) 4 mg NOW STAT IV 06/12/17 23:21 06/12/17 23:22 DC 06/12/17 23:28 4 MG Ketorolac Tromethamine (Toradol Inj) 30 mg NOW STAT IV 06/13/17 02:37 06/13/17 02:38 DC 06/13/17 02:44 30 MG Lidocaine (Lidoderm Patch 5%) 1 patch NOW STAT TD 06/13/17 02:47 06/13/17 02:48 DC 06/13/17 03:28 1 PATCH ED Course Prior records/ancillary studies reviewed. Triage Nursing notes reviewed. The patient's history was concerning for chest pain. Differential diagnosis: Etiologies such as cardiac ischemia, aortic dissection, pulmonary embolism, pneumonia, pneumothorax, musculoskeletal, infections, pericarditis, myocarditis , esophageal rupture, gastrointestinal, as well as others were entertained. Physical examination: As above. ER treatment provided: By mouth fluids On reassessment the patient felt better. Diagnostic interpretation by me: The electrocardiogram was negative for pathologic change. Normal sinus, normal intervals, no acute ST-T wave changes. Rate of 56. Impression sinus bradycardia interpreted by myself The labs revealed leukocytosis. Blood cultures pending. Negative lactic acid. Hypercoagulable workup was ordered Imaging studies: CTA is concerning for right subsegmental PE per radiology Ultrasound of the arm is concerning for left basilic vein thrombosis from proximal to upper arm arm per STAT Rad Consultation: A consultation was placed with the hospitalist, Dr Charles. The case was discussed and diagnostics were reviewed. The patient was evaluated in the ER for further treatment. Exam and history seem consistent with PE and thrombus in the left arm with concerns of possible new murmur on exam. He states that he will take care of writing for anticoagulation and antibiotics if oriented. Patient did have a low -grade fever here. He was adamant he does not use any type of IV drugs. He states he occasionally takes Suboxone but not on a daily basis. He does not take this on a daily basis. Patient had a negative lactic acid. Blood cultures are pending. By the evaluation outlined above emergent etiologies such as cardiac ischemia, aortic dissection, pneumonia, pneumothorax, gastrointestinal, as well as others were deemed relatively unlikely. The pt informed about the findings as listed above. All questions were answered and pleased with the treatment. Case reviewed with my Attending. Medical Decision As above [place] Drug Monitoring Program Search Results: patient reviewed within database, no issues identified Medication Reconcilliation Current Medication List: was personally reviewed by me Blood Pressure Screening Patient's blood pressure: Normal blood pressure Impression Primary Impression: Right pulmonary embolus Additional Impression: Deep vein thrombosis (DVT) of left upper extremity Departure Information Dispostion Still a Patient Condition GOOD Referrals No Doctor, Assigned (PCP) Patient Instructions My [facility] Health Problem Qualifiers
[2017-06-13] MEDS ORDERED: HEPARIN 25000 UNIT/500 ML D5W ONE (04:20)
[2017-06-13 04:55] VITALS: BP 100/65; PULSE 60; TEMP 36.8; O2SAT 97; Ht 188 cm; Wt 101.2 kg
[2017-06-13] MEDS ORDERED: SODIUM CHLORIDE 0.9% 1000ML 1,000 ML IV ONE (05:00)
[2017-06-13] MEDS ORDERED: HEPARIN 25,000 UNIT/500ML D5W 500 ML IV PRN (05:15)
--- NOTE | 2017-06-13 05:47 | HISTORY & PHYSICAL EXAMINATION ---
DATE OF ADMISSION: 06/13/2017 The patient has no primary care doctor. HISTORY OF PRESENT ILLNESS: History obtained from patient and records. Medical history significant for substance abuse, ongoing tobacco abuse, recent STD ongoing doxycycline course. Recent confinement last November 2012 for chest pain, rhabdomyolysis. Two weeks history of headache symptoms with lightheadedness, generalized, no neck stiffness, no fever, no chills. Seen at the Emergency Room, unremarkable workup. Improved with ER intervention. Improved headache symptoms. Patient seen at the Emergency Room 2 days ago for penile discharge with burning with urination and fatigue, known exposure to gonorrhea. Patient given Ceftriaxone, Azithromycin. Discharged on 2 weeks doxycycline course. Yesterday, patient noted right upper flank/R chest pain going to the mid back, pleuritic with some shortness of breath. No hemoptysis. Low grade fever. No arm pain, swelling. No abdominal pain, black or bloody stools. No recent prolonged travel or immobility. Admits to buying Suboxone from the street. Denies IV drug use. Patient brought to the Emergency Room. MEDICAL HISTORY: As above. SURGERIES: None. HOME MEDICATIONS: Include doxycycline. ALLERGIES: PENICILLIN. FAMILY HISTORY: Blood clots. PERSONAL AND SOCIAL HISTORY: A pack daily. No chronic intake of alcoholic beverages. [employer] employee. REVIEW OF SYSTEMS: As per HPI, all 10 systems reviewed, all other ROS negative. PHYSICAL EXAMINATION: VITAL SIGNS: Blood pressure was noted to be 121/68, pulse rate 74, RR 16, temperature 37.6, sats 98 on room air. GENERAL: Noted to be slightly uncomfortable, no respiratory distress. SKIN: Pallor, warm. Multiple tattoos noted. HEENT: Pale palpebral conjunctivae . No ptosis. Dry buccal mucosa. NECK: No JVD. Supple. No tenderness. CHEST: Decreased effort. Tenderness on the right chest wall. CV: Regular rate and rhythm, palpable LE pulses. ABDOMEN: Soft, nontender. RECTAL: Yellow stool. Hemoccult negative. Intact sphincter. EXTREMITIES: No edema, no tenderness. No gross deformities. NEUROLOGIC: Coherent. No gross focality. LABORATORY DATA: Hemoglobin was noted to be 12.5, hematocrit 35.6, white cell count 11.68, platelets 241. Sodium noted to be 137, potassium 4.1, chloride 100, CO2 29, BUN 40, creatinine 1, glucose 98. Procalcitonin was normal. CT chest initial read showed subsegmental PE posterior aspect right lower lobe, no definite myocardial infarct, no right heart strain, atelectasis. US : Left basilic vein thrombus. No lower extremity clots. ASSESSMENT: 1. Acute pulmonary embolism unclear provoking factor 2. Ongoing tobacco abuse 3. ongoing substance abuse. 4. Normocytic anemia. No occult bleed. 5. recent STD urethritis on Doxycycline Rx PLAN: PCU IV heparin Defer discussion regarding choice of oral agent between patient and a.m. provider Judicious narcotic use. Anemia workup. Nicotine patch. DVT prophylaxis, Heparin. Full code. MTDD
--- NOTE | 2017-06-13 06:41 | DIAGNOSTIC IMAGING REPORT ---
VENOUS DOPPLER UPR EXT BILA HISTORY: 22 years-old Male + PE screening study to assess for DVT. The patient has a pulmonary embolus. COMPARISON: CTA of the chest 06/12/2017 TECHNIQUE: Multiple real-time sonographic images of the bilateral upper extremity deep venous structures were obtained assessing grayscale appearance, color and spectral flow. FINDINGS: There is normal flow, phasicity, compressibility and augmentation within the bilateral deep venous structures. Occlusive thrombus is present within the left basilic vein extending from the proximal to distal upper arm. Intravenous catheter appears to be within the left cephalic vein which is patent. IMPRESSION: 1. No sonographic evidence of deep venous thrombosis within either upper extremity. 2. Occlusive superficial venous thrombus of the left basilic vein. The above report was generated using voice recognition software. It may contain grammatical, syntax or spelling errors. Electronically signed by: Suhail Shipman M.D. 06/13/2017 6:39 AM Dictated Date/Time: 06/13/2017 6:34 AM
--- NOTE | 2017-06-13 06:56 | DIAGNOSTIC IMAGING REPORT ---
VENOUS DOPPLER LWR EXT BILA HISTORY: Pain. Edema. + PE COMPARISON STUDY: None. FINDINGS: There is normal compressibility, flow, and augmentation within the bilateral lower extremity deep venous systems. IMPRESSION: No DVT within the right or left lower extremity. The above report was generated using voice recognition software. It may contain grammatical, syntax or spelling errors. Electronically signed by: Mark Pierce M.D. 06/13/2017 6:54 AM Dictated Date/Time: 06/13/2017 6:54 AM
--- NOTE | 2017-06-13 07:09 | DIAGNOSTIC IMAGING REPORT ---
(CHEST FOR PE) ANGIO WITH CLINICAL HISTORY: 22 years-old Male presenting with chest and right flank pain, clinical concern for pulmonary embolus. TECHNIQUE: Multidetector CT angiography of the chest was performed after administration of intravenous contrast. 3-D volumetric and/or maximum intensity projection (MIP) images were subsequently reconstructed for review. IV contrast: 94 mL of Optiray 320. A dose lowering technique was used consistent with the principles of ALARA (as low as reasonably achievable). COMPARISON: Chest x-ray from 06/06/2017. CT DOSE (mGy.cm): The estimated cumulative dose is 559.77 mGy.cm. FINDINGS: [employer] Worker topogram: Unremarkable. Pulmonary vasculature: The study is suboptimal secondary to the timing of the contrast bolus limiting evaluation of subsegmental pulmonary arteries. Within this limitation, there is a questionable filling defect in a subsegmental pulmonary artery to the posterior basal segment of the right lower lobe (series 4 image 113). Main pulmonary artery is not enlarged. No flattening of the interventricular septum. No intracardiac intracardiac filling defect. No reflux of contrast into the hepatic veins. Remaining chest: On soft tissue windows, bilateral gynecomastia. Scattered calcification in the precarinal region may suggest calcified lymph nodes possibly indicating prior granulomatous infection. Normal residual thymic tissue evident. Normal aorta. Normal heart size. Small right pleural effusion. Upper abdomen normal. On lung windows, right lower lobe calcified granuloma. Dependent groundglass opacity. Mild bronchial wall thickening in the right lower lobe suggested. Airways remain patent. On bone windows, normal osseous structures. IMPRESSION: 1. Questionable subsegmental pulmonary embolus in the right lower lobe. Repeat CT of the chest could be considered to confirm this finding if clinically indicated. 2. Dependent groundglass opacity with associated bronchial wall thickening in the right lower lobe and small right pleural effusion. The associated findings would be atypical in the setting of simple dependent atelectasis. An infectious etiology cannot be excluded. Alternatively, this could be reactive to the presence of the presumed subsegmental embolus. No convincing evidence of infarct. Electronically signed by: Ankush Chambers M.D. 06/13/2017 7:07 AM Dictated Date/Time: 06/13/2017 7:00 AM
--- NOTE | 2017-06-13 07:22 | DIAGNOSTIC IMAGING REPORT ---
HEAD WITHOUT CONTRAST (CT) CLINICAL HISTORY: 22 years-old Male presenting with cheney. TECHNIQUE: Multidetector CT imaging of the head was performed without the use of intravenous contrast. IV contrast: None. A dose lowering technique was used consistent with the principles of ALARA (as low as reasonably achievable). COMPARISON: 12/22/2010. CT DOSE (mGy.cm): The estimated cumulative dose is 614.27 mGy.cm. FINDINGS: [employer] topogram: Unremarkable. Mild asymmetric dilatation of the occipital horn of the right lateral ventricle, likely within the range of normal variant. This is unchanged from prior exam. Ventricles and sulci otherwise normal in size. Brain parenchyma normal in appearance with preserved russo-white differentiation. No mass effect or midline shift. No hemorrhage or acute territorial infarct. No extra-axial fluid collection. Paranasal sinuses and mastoid air cells clear. Calvarium intact. IMPRESSION: 1. No acute intracranial abnormality. Electronically signed by: Ankush Chambers M.D. 06/13/2017 7:21 AM Dictated Date/Time: 06/13/2017 7:09 AM
[2017-06-13 08:00] VITALS: BP 102/58; PULSE 60; TEMP 37.2; O2SAT 98
[2017-06-13] MEDS: DOXYCYCLINE HYCLATE 100 MG CAP PO SCH ×2 (08:41→20:30)
[2017-06-13] MEDS: LIDODERM (LIDOCAINE) PATCH 5% TD SCH (10:06)
[2017-06-13 11:06] LABS: PARTIAL THROMBOPLASTIN RATIO 1.6
[2017-06-13 12:00] VITALS: BP 120/75; PULSE 73; TEMP 37.1; O2SAT 99
[2017-06-13] MEDS ORDERED: HEPARIN IV BOLUS 4,000 UNIT in SYRINGE 0 ML IV ONE (12:00)
--- NOTE | 2017-06-13 15:48 | Progress Note ---
Internal Med Progress Note Date of Service: Jun 13, 2017. Provider Documentation: SUBJECTIVE: mention of having pleuritic chest pain with Deep breath no hypoxia , no ZAMORANO no dizzy spell or lightheadedness OBJECTIVE: Vital Signs-as noted below Exam: General-young male ,no apparent distress, conversing Eyes-sclera non icteric , PERRLA/EOMI ENT-normal oral mucosa, no erythema or exudate in oropharynx , normal dentition , hearing grossly normal Neck-no thyromegaly . trachea midline Lungs-clear to auscultate, no wheeze or rales Heart-regular S1/S2 Abdomen-soft non tender, bowel sound active, no organomegaly Extremities-no rash . deformity , multiple tattoo in extremities Neuro-AAO x3, no focal neurological deficit Lab data as noted below. ASSESSMENT & PLAN: PULMONARY EMBOLISM : presented with chest pain /ZAMORANO , back pain CT chest shows : 1. Questionable subsegmental pulmonary embolus in the right lower lobe. Repeat CT of the chest could be considered to confirm this finding if clinically indicated. 2. Dependent ground glass opacity with associated bronchial wall thickening in the right lower lobe and small right pleural effusion. The associated findings would be atypical in the setting of simple dependent atelectasis. An infectious etiology cannot be excluded started on IV heparin pt denies of any recent travel , no prior hx of DVT or PE bilateral lower ext USG -negative for DVT mentions one Uncle had hx of DVT hypercoagulable work up sent in ER will change IV Heparin to Lovenox subq therapeutic dose will start on Coumadin ( pt does not have insurance, can not pay for NOAC ) will need to establish care with family physician to monitor PT/INR and Coumadin dosing LEFT ARM SUPERFICIAL THROMBOSIS USG shows : Occlusive superficial venous thrombus of the left basilic vein. on anticoagulation hx of drug abuse denies of using IV drugs urine tox screen negative ordered for ECHO to R/O endocarditis FULL CODE DVT PROPHYLAXIS SC Lovenox therapeutic dose Coumadin DISPOSITION transfer to medical floor plan to discharge home when INR therapeutic Vital Signs: Date Time Temp Pulse Resp B/P (MAP) Pulse Ox O2 Delivery O2 Flow Rate FiO2 06/13/17 16:00 Room Air 06/13/17 15:50 36.7 76 18 131/73 (92) 97 Room Air 06/13/17 12:00 37.1 73 18 120/75 (90) 99 Room Air 06/13/17 12:00 Room Air 06/13/17 08:00 Room Air 06/13/17 08:00 37.2 60 18 102/58 (73) 98 Room Air 06/13/17 04:55 36.8 60 18 100/65 97 Room Air 06/13/17 04:27 37.1 90 14 115/63 98 Room Air 06/13/17 04:10 65 16 97 06/13/17 04:00 91/57 06/13/17 03:40 59 16 96 06/13/17 03:35 66 14 96 06/13/17 03:30 108/56 06/13/17 03:05 63 14 96 06/13/17 03:02 115/67 06/13/17 02:44 77 16 117/71 98 Room Air 06/13/17 02:35 85 15 96 06/13/17 02:31 117/71 06/13/17 02:05 75 13 98 06/13/17 02:00 84 14 116/67 98 06/13/17 01:40 98 06/13/17 01:31 109/67 06/13/17 01:30 76 16 97 06/13/17 01:17 74 16 121/68 99 Room Air 06/13/17 00:00 128/71 06/12/17 23:50 73 18 95 06/12/17 23:30 123/65 06/12/17 23:20 80 20 98 06/12/17 23:17 37.4 87 18 127/64 97 Room Air 06/12/17 22:28 82 25 134/70 95 Room Air 06/12/17 21:39 97 06/12/17 20:36 37.6 107 20 148/63 98 Room Air Lab Results: Results Past 24 Hours Test 06/12/17 21:15 06/12/17 21:35 06/13/17 00:14 06/13/17 01:31 Range/Units White Blood Count 11.68 4.8-10.8 K/uL Red Blood Count 3.77 4.7-6.1 M/uL Hemoglobin 12.5 14.0-18.0 g/dL Hematocrit 35.6 42-52 % Mean Corpuscular Volume 94.4 80-100 fL Mean Corpuscular Hemoglobin 33.2 25-34 pg Mean Corpuscular Hemoglobin Concent 35.1 32-36 g/dl Platelet Count 241 130-400 K/uL Mean Platelet Volume 9.6 7.4-10.4 fL Neutrophils (%) (Auto) 63.2 % Lymphocytes (%) (Auto) 24.6 % Monocytes (%) (Auto) 10.0 % Eosinophils (%) (Auto) 1.7 % Basophils (%) (Auto) 0.2 % Neutrophils # (Auto) 7.39 1.4-6.5 K/uL Lymphocytes # (Auto) 2.87 1.2-3.4 K/uL Monocytes # (Auto) 1.17 0.11-0.59 K/uL Eosinophils # (Auto) 0.20 0-0.5 K/uL Basophils # (Auto) 0.02 0-0.2 K/uL RDW Standard Deviation 40.8 36.4-46.3 fL RDW Coefficient of Variation 12.0 11.5-14.5 % Immature Granulocyte % (Auto) 0.3 % Immature Granulocyte # (Auto) 0.03 0.00-0.02 K/uL Nucleated RBC Absolute Count (auto) 0.00 0-0 K/uL Nucleated Red Blood Cells % 0.0 % Erythrocyte Sedimentation Rate 12 0-14 mm/hr Absolute Reticulocyte Count 0.03 0.02-0.10 10^6/uL Percent Reticulocyte Count 0.7 0.5-2.0 % Sodium Level 137 136-145 mmol/L Potassium Level 4.1 3.5-5.1 mmol/L Chloride Level 100 98-107 mmol/L Carbon Dioxide Level 29 21-32 mmol/L Anion Gap 8.0 3-11 mmol/L Blood Urea Nitrogen 14 7-18 mg/dl Creatinine 1.06 0.60-1.40 mg/dl Est Creatinine Clear Calc Drug Dose 138.3 ml/min Estimated GFR () 113.3 Estimated GFR (Non- 97.8 BUN/Creatinine Ratio 13.2 10-20 Random Glucose 98 70-99 mg/dl Lactic Acid Level 1.0 0.4-2.0 mmol/L Calcium Level 8.7 8.5-10.1 mg/dl Magnesium Level 1.9 1.8-2.4 mg/dl Iron Level 25 35-175 mcg/dl Total Iron Binding Capacity 249 250-450 mcg/dl Transferrin 196 200-360 mg/dl Transferrin % Saturation 9 20-50 % Ferritin 166.0 8.0-388.0 ng/ml Total Bilirubin 0.3 0.2-1 mg/dl Direct Bilirubin < 0.1 0-0.2 mg/dl Aspartate Amino Transf (AST/SGOT) 11 15-37 U/L Alanine Aminotransferase (ALT/SGPT) 20 12-78 U/L Alkaline Phosphatase 57 45-117 U/L Total Creatine Kinase 116 39-308 U/L Total Protein 6.9 6.4-8.2 gm/dl Albumin 3.4 3.4-5.0 gm/dl Lipase 130 73-393 U/L Procalcitonin < 0.05 0-0.5 ng/ml Thyroid Stimulating Hormone (TSH) 1.500 0.300-4.500 uIu/ml Urine Color YELLOW Urine Appearance CLEAR CLEAR Urine pH 6.5 4.5-7.5 Urine Specific [place] 1.012 1.000-1.030 Urine Protein NEG NEG Urine Glucose (UA) NEG NEG Urine Ketones NEG NEG Urine Occult Blood NEG NEG Urine Nitrite NEG NEG Urine Bilirubin NEG NEG Urine Urobilinogen NEG NEG Urine Leukocyte Esterase TRACE NEG Urine WBC (Auto) 5-10 0-5 /hpf Urine RBC (Auto) 0-4 0-4 /hpf Urine Hyaline Casts (Auto) 0 0-5 /lpf Urine Epithelial Cells (Auto) 0-5 0-5 /lpf Urine Bacteria (Auto) NEG NEG Prothrombin Time 11.2 9.0-12.0 SECONDS Prothromb Time International Ratio 1.0 0.9-1.1 Activated Partial Thromboplast Time 27.6 21.0-31.0 SECONDS Partial Thromboplastin Ratio 1.1 Test 06/13/17 01:43 06/13/17 01:54 06/13/17 02:42 06/13/17 10:38 Range/Units Transferrin % Saturation 20-50 % Bedside Lactic Acid Venous 0.39 0.90-1.70 mmol/L Troponin I < 0.015 0-0.045 ng/ml C-Reactive Protein 2.79 0-0.29 mg/dl Vitamin B12 Level 477 211-911 pg/mL Folate 12.13 >5.38 ng/mL Activated Partial Thromboplast Time 41.5 21.0-31.0 SECONDS Partial Thromboplastin Ratio 1.6 Microbiology Results 06/13/17 Blood Culture, Received Pending 06/13/17 Blood Culture, Received Pending 06/12/17 Urine Culture, Received Pending
[2017-06-13 15:50] VITALS: BP 131/73; PULSE 76; TEMP 36.7; O2SAT 97
[2017-06-13 17:51] VITALS: BP 131/73; PULSE 76; TEMP 36.7; O2SAT 97
[2017-06-13] MEDS ORDERED: WARFARIN SOD 5 MG TAB PO SCH (18:00)
[2017-06-13] MEDS: ENOXAPARIN 100 MG/1ML SYR SQ SCH (18:36)
[2017-06-13] MEDS: TRAMADOL HCL 50 MG TAB PO PRN (18:39)
[2017-06-13] MEDS: KETOROLAC TROMETHAMINE 30 MG/ML VIAL IV PRN (20:36)
[2017-06-14] VITALS: BP 135/72; PULSE 66; TEMP 37; O2SAT 97
[2017-06-14] MEDS: TRAMADOL HCL 50 MG TAB PO PRN ×2 (04:49→15:48)
[2017-06-14] MEDS: ENOXAPARIN 100 MG/1ML SYR SQ SCH ×2 (06:07→18:10)
[2017-06-14 07:36] LABS: HEMATOCRIT 35.5 % (42-52); MEAN CELL VOLUME 94.4 fL (80-100); MEAN CORPUSCULAR HGB CONC 34.9 g/dl (32-36); MEAN PLATELET VOLUME 9.7 fL (7.4-10.4); PLATELET COUNT 238 K/uL (130-400); RED BLOOD COUNT 3.76 M/uL (4.7-6.1); WHITE BLOOD COUNT 11.13 K/uL (4.8-10.8)
[2017-06-14 07:44] LABS: INR 1.1 (0.9-1.1); PROTHROMBIN TIME (PATIENT) 12.2 SECONDS (9.0-12.0)
[2017-06-14 08:04] VITALS: BP 106/64; PULSE 93; TEMP 36.9; O2SAT 96
[2017-06-14] MEDS ORDERED: LIDODERM (LIDOCAINE) PATCH 5% TD SCH ×2 (09:00→19:00)
[2017-06-14] MEDS: LIDODERM (LIDOCAINE) PATCH 5% TD SCH (09:06)
[2017-06-14] MEDS: DOXYCYCLINE HYCLATE 100 MG CAP PO SCH ×2 (09:07→20:41)
[2017-06-14 10:16] VITALS: O2SAT 96
--- NOTE | 2017-06-14 12:31 | ECHOCARDIOGRAM REPORT ---
*NOTICE TO RECEIVING [employer] AGENCY This information is strictly Confidential and protected under [place] law. [place] law prohibits you from making any further disclosure of this information unless further disclosure is expressly permitted by the written consent of the person to whom it pertains or is authorized by law. A general authorization for the release of medical or other information is not sufficient for this purpose. Hospital accepts no responsibility if the information is made available to any other person, INCLUDING THE PATIENT. Interpretation Summary * Name: AYDEE BROWN Study Date: 06/14/2017 10:36 AM BP: 135/72 mmHg * Patient Location: [id number] HR: 68 * : 1995 (M/d/yyyy) Gender: Male Height: 74 in * Age: 22 yrs Ethnicity: CA Weight: 223 lb * Ordering Physician: Soha Pacheco * Referring Physician: Self, Referred * Performed By: Jossue Horan RDCS * * Reason For Study: R/O Endocarditis * BSA: 2.3 m2 * There is no evidence of a mass or vegetation. This does not rule out endocarditis. * This was essentially a normal study. * -- Conclusions -- * There is no evidence of a mass or vegetation. This does not rule out endocarditis. * This was essentially a normal study. Procedure Details * A complete two-dimensional transthoracic echocardiogram was performed (2D, M-mode, Doppler and color flow Doppler). * The study was technically adequate. Left Ventricle * The left ventricle is normal in size. * There is normal left ventricular wall thickness. * Left ventricular systolic function is normal. * Ejection Fraction = 55-60%. Right Ventricle * The right ventricle is normal size. * The right ventricular systolic function is normal. Atria * The left atrial size is normal. * Right atrial size is normal. * There is no evidence of atrial septal defect, but resolution does not allow assessment for a patent foramen ovale. Mitral Valve * The mitral valve is normal in structure and function. Tricuspid Valve * The tricuspid valve is normal in structure and function. Aortic Valve * The aortic valve opens well. * No hemodynamically significant valvular aortic stenosis. * There is no significant aortic regurgitation. Pulmonic Valve * The pulmonic valve is not well visualized. * There is no significant pulmonary regurgitation. Great Vessels * The aortic root and proximal ascending aorta are normal sized. Pericardium/Pleural * There is no pericardial effusion. MMode 2D Measurements and Calculations IVSd 0.94 cm IVSs 1.3 cm LVIDd 4.9 cm LVIDs 3.5 cm LVPWd 1.0 cm LVPWs 1.3 cm IVS/LVPW 0.92 FS 28.3 % EDV(Teich) 114.2 ml ESV(Teich) 52.0 ml EF(Teich) 54.5 % EDV(cubed) 119.5 ml ESV(cubed) 44.1 ml EF(cubed) 63.1 % % IVS thick 33.9 % % LVPW thick 26.6 % LV mass(C)d 171.5 grams LV mass(C)dI 75.3 grams/m\S\2 LV mass(C)s 149.8 grams LV mass(C)sI 65.8 grams/m\S\2 SV(Teich) 62.2 ml SI(Teich) 27.3 ml/m\S\2 SV(cubed) 75.4 ml SI(cubed) 33.1 ml/m\S\2 Ao root diam 3.2 cm Ao root area 8.2 cm\S\2 ACS 2.1 cm LA dimension 3.3 cm asc Aorta Diam 3.1 cm LA/Ao 1.0 LVOT diam 2.1 cm LVOT area 3.6 cm\S\2 Doppler Measurements and Calculations MV E max jose alejandro 107.8 cm/sec MV A max jose alejandro 58.6 cm/sec MV E/A 1.8 MV dec time 0.25 sec Ao V2 max 136.6 cm/sec Ao max PG 7.5 mmHg Ao max PG (full) 1.5 mmHg DIOGENES(V,A) 3.2 cm\S\2 DIOGENES(V,D) 3.2 cm\S\2 LV V1 max PG 5.9 mmHg LV V1 max 122.0 cm/sec PA V2 max 118.5 cm/sec PA max PG 5.6 mmHg
[2017-06-14] MEDS ORDERED: CMD75 PO (12:41)
--- NOTE | 2017-06-14 12:43 | Discharge Instructions ---
Discharge Instructions Date of Service Jun 14, 2017. Admission Reason for Admission: Right Pulmonary Embolus Discharge Discharge Diagnosis / Problem: (1) Deep vein thrombosis (DVT) of left upper extremity (2) Right pulmonary embolus VTE Date & Time Date of VTE Diagnosis: Jun 12, 2017 Time of VTE Diagnosis: 22:42 Discharge Goals Goal(s): Decrease discomfort, Increase independence, Improve disease control, Diagnostic testing, Therapeutic intervention Activity Recommendations Activity Limitations: resume your previous activity . Instructions / Follow-Up Instructions / Follow-Up HOSPITAL FOLLOW UP : 06/20/2017 11:30 AM Katia Magnaa DO [facility] FOLLOW UP WITH [facility] AT [facility] FOR PT/INR DRAW AND COUMADIN DOSING Medication Instructions: * Warfarin is a medicine prescribed to prevent blood clots * Warfarin will thin your blood and help prevent new clots * Take your medications exactly as directed * Never skip a dose. Never take a double dose. If you miss a dose, take it as soon as you remember * It is important for your doctor to monitor your prothrombin time (PT). This is a lab test * Keep your appointment for lab tests Risk of Adverse Drug Reactions and Interactions: * Warfarin increases your risk of bleeding * The food you eat and other medications you take can affect how Warfarin works in your body * Ask your doctor about daily aspirin therapy * It is very important to talk with your doctor about all of the other medicines , antibiotics, vitamins or herbal products that you are taking * All of your medication must be approved by your doctor, including new medicines, as well as medicines you have taken before you started taking Warfarin Diet: * In order for Warfarin to work properly, it is important to keep your intake of Vitamin K as consistent as possible * You should avoid any sudden change in Vitamin K intake * Report any significant changes in your diet or weight to your doctor Call your Primary Care doctor if you experience any of the following: * Swelling or Pain in your leg * Sudden, continuous pain deep in a muscle * Pain that worsens when you are active or when you stand still for a long time * Chest Pain * Sudden Shortness of Breath * Rapid or pounding heart beat * Fainting * Dizziness * Cough with blood or bloody sputum * Sweating more than normal * Bruises * Heavy or uncontrolled bleeding * Blood in your urine, stool or vomit * Black or tarry stools Caring for Your Self at Home: * Avoid sitting, standing or lying down for long periods without moving your legs and feet * When traveling by car, stop to get out and move around at least once every 3 hours * On long airplane, train or bus rides, get up and move around when possible * If you can't get up, wiggle your toes and tighten your calves to keep your blood moving Follow Up: It is important for you to keep your follow up appointments with your medical provider. Current Hospital Diet Patient's current hospital diet: Regular Diet Discharge Diet Recommended Diet: Regular Diet Pending Studies Studies pending at discharge: yes (PT /INR CHECK IN 2 DAYS ) List of pending studies: PT/INR IN 2 DAYS Medical Emergencies . Who to Call and When: Medical Emergencies: If at any time you feel your situation is an emergency, please call 911 immediately. . Non-Emergent Contact Non-Emergency issues call your: Primary Care Provider . . "Provider Documentation" section prepared by Soha Pacheco. . VTE Core Measure Inpt VTE Proph given/why not?: Warfarin (Coumadin) Reason no anticoag overlap I/P: Treatment provided - N/A Reason no anticoag overlap @DC: Treatment not indicated
[2017-06-14 14:24] VITALS: BP 102/56; PULSE 95; TEMP 37.2; O2SAT 97
[2017-06-14 16:00] VITALS: O2SAT 97
[2017-06-14] MEDS ORDERED: WARFARIN SOD 7.5 MG TAB PO SCH (16:00)
--- NOTE | 2017-06-14 16:33 | Progress Note ---
Internal Med Progress Note Date of Service: Jun 14, 2017. Provider Documentation: SUBJECTIVE: feels much better no hypoxia walked in hallway twice today gets pleuritic chest pain occasionally with deep breath no dizzy spell or lightheadedness OBJECTIVE: Vital Signs-as noted below Exam: General-young male ,no apparent distress, conversing Eyes-sclera non icteric , PERRLA/EOMI ENT-normal oral mucosa, no erythema or exudate in oropharynx , normal dentition , hearing grossly normal Neck-no thyromegaly . trachea midline Lungs-clear to auscultate, no wheeze or rales Heart-regular S1/S2 Abdomen-soft non tender, bowel sound active, no organomegaly Extremities-no rash . deformity , multiple tattoo in extremities Neuro-AAO x3, no focal neurological deficit Lab data as noted below. ASSESSMENT & PLAN: PULMONARY EMBOLISM : presented with chest pain /ZAMORANO , back pain CT chest shows : 1. Questionable subsegmental pulmonary embolus in the right lower lobe. Repeat CT of the chest could be considered to confirm this finding if clinically indicated. 2. Dependent ground glass opacity with associated bronchial wall thickening in the right lower lobe and small right pleural effusion. The associated findings would be atypical in the setting of simple dependent atelectasis. An infectious etiology cannot be excluded pt denies of any recent travel , no prior hx of DVT or PE bilateral lower ext USG -negative for DVT mentions one Uncle had hx of DVT hypercoagulable work up sent in ER IV Heparin changed to Lovenox subq therapeutic dose will start on Coumadin ( pt does not have insurance, can not pay for NOAC ) will need to stay in hospital till INR therapeutic-can not afford Suq Lovenox out of pocket Coumadin dose increased to 10 mg daily goal INR 2-3 will need to establish care with family physician to monitor PT/INR and Coumadin dosing LEFT ARM SUPERFICIAL THROMBOSIS USG shows : Occlusive superficial venous thrombus of the left basilic vein. on anticoagulation hx of drug abuse denies of using IV drugs urine tox screen negative ECHO : * There is no evidence of a mass or vegetation. This does not rule out endocarditis. * This was essentially a normal study. FULL CODE DVT PROPHYLAXIS SC Lovenox therapeutic dose Coumadin DISPOSITION plan to discharge home when INR therapeutic Vital Signs: Date Time Temp Pulse Resp B/P (MAP) Pulse Ox O2 Delivery O2 Flow Rate FiO2 11/18/17 16:00 97 Room Air 06/14/17 14:24 37.2 95 20 102/56 (71) 97 Room Air 06/14/17 10:16 96 Room Air 06/14/17 08:04 36.9 93 20 106/64 (78) 96 Room Air 06/14/17 00:28 Room Air 06/14/17 00:00 37.0 66 18 135/72 (93) 97 Room Air 06/13/17 20:45 Room Air Lab Results: Results Past 24 Hours Test 06/14/17 07:04 Range/Units White Blood Count 11.13 4.8-10.8 K/uL Red Blood Count 3.76 4.7-6.1 M/uL Hemoglobin 12.4 14.0-18.0 g/dL Hematocrit 35.5 42-52 % Mean Corpuscular Volume 94.4 80-100 fL Mean Corpuscular Hemoglobin 33.0 25-34 pg Mean Corpuscular Hemoglobin Concent 34.9 32-36 g/dl RDW Standard Deviation 41.1 36.4-46.3 fL RDW Coefficient of Variation 12.1 11.5-14.5 % Platelet Count 238 130-400 K/uL Mean Platelet Volume 9.7 7.4-10.4 fL Prothrombin Time 12.2 9.0-12.0 SECONDS Prothromb Time International Ratio 1.1 0.9-1.1
[2017-06-14] MEDS: KETOROLAC TROMETHAMINE 30 MG/ML VIAL IV PRN (17:38)
[2017-06-14] MEDS ORDERED: MoRPHine SULFATE 2 MG/ML CARP IV PRN (19:00)
[2017-06-15 00:12] VITALS: BP 110/70; PULSE 70; TEMP 36.7; O2SAT 96
[2017-06-15] MEDS: ENOXAPARIN 100 MG/1ML SYR SQ SCH (06:20)
[2017-06-15] MEDS: TRAMADOL HCL 50 MG TAB PO PRN (06:37)
[2017-06-15 06:57] LABS: INR 1.1 (0.9-1.1); PROTHROMBIN TIME (PATIENT) 12.1 SECONDS (9.0-12.0)
[2017-06-15 07:05] VITALS: BP 114/64; PULSE 61; TEMP 36.7; O2SAT 96
[2017-06-15] MEDS: LIDODERM (LIDOCAINE) PATCH 5% TD SCH (08:31)
[2017-06-15] MEDS: DOXYCYCLINE HYCLATE 100 MG CAP PO SCH (08:31)
[2017-06-15 10:02] VITALS: O2SAT 97
[2017-06-15] MEDS ORDERED: OPTIRAY 320 IV PRN (13:30)
--- NOTE | 2017-06-15 14:22 | DIAGNOSTIC IMAGING REPORT ---
CT ANGIOGRAM OF THE CHEST CLINICAL HISTORY: Right-sided chest pain. Pulmonary embolism. COMPARISON STUDY: 06/12/2017 TECHNIQUE: Following the IV administration of 94 mL of Optiray-320, CT angiogram of the thorax was performed from the thoracic inlet to the lung bases utilizing the pulmonary embolus protocol. Images are reviewed in the axial, sagittal, and coronal planes. IV contrast was administered without complication. MIP imaging was performed. A dose lowering technique was utilized adhering to the principles of ALARA. CT DOSE: 490.73 mGy.cm FINDINGS: No pathologically enlarged axillary mediastinal or hilar lymph nodes were visualized. There was no evidence of thoracic aortic dilatation. There is suboptimal pulmonary arterial opacification. No central emboli are visualized. The subsegmental right lower lobe pulmonary emboli described on the prior study are no longer visualized. There is a persistent small right pleural effusion. There are progressive right lower lobe airspace opacities. There are left lower lobe atelectatic changes. IMPRESSION: 1. The previously queried segmental right lower lobe pulmonary embolus is not visualized on the current study 2. Persistent small right pleural effusion 3. Increasing right lower lobe atelectasis/consolidation. Linear subsegmental atelectatic changes within the left lower lobe. Electronically signed by: Bradley Benitez M.D. 06/15/2017 2:21 PM Dictated Date/Time: 06/15/2017 2:17 PM
[2017-06-15 14:52] VITALS: BP 132/73; PULSE 80; TEMP 37.1; O2SAT 97
[2017-06-15] MEDS ORDERED: LEVOFLOXACIN 750 MG TAB PO ONE (15:15)
[2017-06-15] MEDS ORDERED: LEVO-459 PO (15:17)
--- NOTE | 2017-06-15 15:19 | Discharge Instructions ---
Discharge Instructions Date of Service Jun 15, 2017. Admission Reason for Admission: Right Pulmonary Embolus Discharge Discharge Diagnosis / Problem: RT LOWER LOBE PNEUMONIA /NO EVIDENCE OF PULMONARY EMBOLISM Discharge Goals Goal(s): Increase independence, Improve disease control, Diagnostic testing, Therapeutic intervention Activity Recommendations Activity Limitations: resume your previous activity . Instructions / Follow-Up Instructions / Follow-Up HOSPITAL FOLLOW UP : 06/20/2017 11:30 AM Katia Magana DO [facility] Current Hospital Diet Patient's current hospital diet: Regular Diet Discharge Diet Recommended Diet: Regular Diet Pending Studies Studies pending at discharge: no Work Instructions Additional Instructions: RETURN TO WORK ON Friday06/17/17 Medical Emergencies . Who to Call and When: Medical Emergencies: If at any time you feel your situation is an emergency, please call 911 immediately. . Non-Emergent Contact Non-Emergency issues call your: Primary Care Provider . . "Provider Documentation" section prepared by Soha Pacheco. . VTE Core Measure Inpt VTE Proph given/why not?: Warfarin (Coumadin)
--- NOTE | 2017-06-15 15:22 | Progress Note ---
Progress Note Date of Service Jun 15, 2017. Progress Note ATTENDING NOTE : repeat CT chest with contrast done today shows no evidence of PE Rt lower lobe pneumonia CT chest with contrast for PE : 1. The previously queried segmental right lower lobe pulmonary embolus is not visualized on the current study 2. Persistent small right pleural effusion 3. Increasing right lower lobe atelectasis/consolidation. Linear subsegmental atelectatic changes within the left lower lobe. no indication for anticoagulation D/C therapeutic Lovenox and Coumadin added PO Levaquin for persistent Rt lower lobe pneumonia stable to be discharged home today Hospital follow up arranged with Dr Magana at [facility]
[2017-06-15 15:37] VITALS: BP 132/73; PULSE 80; TEMP 37.1; O2SAT 97
[2017-06-15 15:46] VITALS: O2SAT 97
[2017-06-15] MEDS ORDERED: WARFARIN SOD 5 MG TAB PO SCH (16:00)
[2017-06-15] MEDS ORDERED: OXYC-57 PO (16:37)
--- NOTE | 2017-06-15 16:38 | Discharge Summary ---
Discharge Summary Date of Service Jun 15, 2017. Discharge Summary Admission Date: Jun 13, 2017 at 03:52 Discharge Date: Jun 15, 2017 Discharge Disposition: Home Principal Diagnosis: RT LOWER LOBE PNEUMONIA /NO EVIDENCE OF PULMONARY EMBOLISM Procedures: CT CHEST WITH CONTRAST 06/15/17 : IMPRESSION: 1. The previously queried segmental right lower lobe pulmonary embolus is not visualized on the current study 2. Persistent small right pleural effusion 3. Increasing right lower lobe atelectasis/consolidation. Linear subsegmental atelectatic changes within the left lower lobe. ECHO : There is no evidence of a mass or vegetation. This does not rule out endocarditis. This was essentially a normal study. Procedure Details A complete two-dimensional transthoracic echocardiogram was performed (2D, M- mode, Doppler and color flow Doppler). The study was technically adequate. Left Ventricle The left ventricle is normal in size. There is normal left ventricular wall thickness. Left ventricular systolic function is normal. Ejection Fraction = 55-60%. VENOUS DOPPLER UPPER EXTREMITY : IMPRESSION: 1. No sonographic evidence of deep venous thrombosis within either upper extremity. 2. Occlusive superficial venous thrombus of the left basilic vein. BILATERAL LOWER EXT DOPPLER : No evidence of DVT Medication Reconciliation New Medications: Levofloxacin (Levaquin) 500 Mg Tab 1 TAB PO DAILY for 4 Days, #4 TABS Oxycodone/Acetaminophen 5MG/325MG (Percocet 5MG/325MG) Tab 1 TABLET PO Q6H PRN for Pain, #10 TAB Continued Medications: Doxycycline Hyclate (Vibramycin) 100 Mg Cap 100 MG PO BID for 14 Days, #28 CAP Referrals At Discharge Follow up Referrals: Physician Referral - 06/20/17 with Katia Magana D.O. Admission Information HPI (per Admitting provider): DATE OF ADMISSION: 06/13/2017 The patient has no primary care doctor. HISTORY OF PRESENT ILLNESS: History obtained from patient and records. Medical history significant for substance abuse, ongoing tobacco abuse, recent STD ongoing doxycycline course. Recent confinement last November 2012 for chest pain, rhabdomyolysis. Two weeks history of headache symptoms with lightheadedness, generalized, no neck stiffness, no fever, no chills. Seen at the Emergency Room, unremarkable workup. Improved with ER intervention. Improved headache symptoms. Patient seen at the Emergency Room 2 days ago for penile discharge with burning with urination and fatigue, known exposure to gonorrhea. Patient given Ceftriaxone, Azithromycin. Discharged on 2 weeks doxycycline course. Yesterday, patient noted right upper flank/R chest pain going to the mid back, pleuritic with some shortness of breath. No hemoptysis. Low grade fever. No arm pain, swelling. No abdominal pain, black or bloody stools. No recent prolonged travel or immobility. Admits to buying Suboxone from the street. Denies IV drug use. Patient brought to the Emergency Room. MEDICAL HISTORY: As above. SURGERIES: None. HOME MEDICATIONS: Include doxycycline. ALLERGIES: PENICILLIN. FAMILY HISTORY: Blood clots. PERSONAL AND SOCIAL HISTORY: A pack daily. No chronic intake of alcoholic beverages. [employer] employee. REVIEW OF SYSTEMS: As per HPI, all 10 systems reviewed, all other ROS negative. Physical Exam (per Admitting): PHYSICAL EXAMINATION: VITAL SIGNS: Blood pressure was noted to be 121/68, pulse rate 74, RR 16, temperature 37.6, sats 98 on room air. GENERAL: Noted to be slightly uncomfortable, no respiratory distress. SKIN: Pallor, warm. Multiple tattoos noted. HEENT: Pale palpebral conjunctivae . No ptosis. Dry buccal mucosa. NECK: No JVD. Supple. No tenderness. CHEST: Decreased effort. Tenderness on the right chest wall. CV: Regular rate and rhythm, palpable LE pulses. ABDOMEN: Soft, nontender. RECTAL: Yellow stool. Hemoccult negative. Intact sphincter. EXTREMITIES: No edema, no tenderness. No gross deformities. NEUROLOGIC: Coherent. No gross focality. Hospital Course PHYSICAL EXAM ON DAY OF DISCHARGE ; Exam: General-young male ,no apparent distress, conversing Eyes-sclera non icteric , PERRLA/EOMI ENT-normal oral mucosa, no erythema or exudate in oropharynx , normal dentition , hearing grossly normal Neck-no thyromegaly . trachea midline Lungs-clear to auscultate, no wheeze or rales Heart-regular S1/S2 Abdomen-soft non tender, bowel sound active, no organomegaly Extremities-no rash . deformity , multiple tattoo in extremities Neuro-AAO x3, no focal neurological deficit RT LOWER LOBE PNEUMONIA presented with chest pain /ZAMORANO , back pain CT chest shows on admission showed Questionable subsegmental pulmonary embolus in the right lower lobe. bilateral lower ext USG -negative for DVT pt was treated with Lovenox subq therapeutic dose /Coumadin repeat CT chest done today : shows : 1. The previously queried segmental right lower lobe pulmonary embolus is not visualized on the current study 2. Persistent small right pleural effusion 3. Increasing right lower lobe atelectasis/consolidation. Linear subsegmental atelectatic changes within the left lower lobe anticoagulation discontinued added Levaquin for persisted rt lower lobe pneumonia -complete 5 days dose was on Doxycycline already for recent recent Dx of STD does not have any chest pain or discomfort, no cough ,no fever or chills stable to be discharged home today LEFT ARM SUPERFICIAL THROMBOSIS USG shows : Occlusive superficial venous thrombus of the left basilic vein. no further anticoagulation needed hx of drug abuse denies of using IV drugs urine tox screen negative ECHO : * There is no evidence of a mass or vegetation. This does not rule out endocarditis. * This was essentially a normal study. FULL CODE DISPOSITION stable to be discharged home today Medicine follow up with Dr Magana Total time spent on discharge = 35 MINS This includes examination of the patient, discharge planning, medication reconciliation, and communication with other providers. Discharge Instructions Discharge Instructions Date of Service Jun 15, 2017. Admission Reason for Admission: Right Pulmonary Embolus Discharge Discharge Diagnosis / Problem: RT LOWER LOBE PNEUMONIA /NO EVIDENCE OF PULMONARY EMBOLISM Discharge Goals Goal(s): Increase independence, Improve disease control, Diagnostic testing, Therapeutic intervention Activity Recommendations Activity Limitations: resume your previous activity . Instructions / Follow-Up Instructions / Follow-Up HOSPITAL FOLLOW UP : 06/20/2017 11:30 AM Katia Magana DO [facility] Current Hospital Diet Patient's current hospital diet: Regular Diet Discharge Diet Recommended Diet: Regular Diet Pending Studies Studies pending at discharge: no Medical Emergencies . Who to Call and When: Medical Emergencies: If at any time you feel your situation is an emergency, please call 911 immediately. . Non-Emergent Contact Non-Emergency issues call your: Primary Care Provider . . "Provider Documentation" section prepared by Soha Pacheco. . VTE Core Measure Inpt VTE Proph given/why not?: Warfarin (Coumadin) Additional Copies To Katia Magana D.O.
[2017-06-18 02:23] LABS: ANTITHROMBINIII ACTIVITY** 103 % activity (80-120); B2 GLYCOPROTEIN IGA <9 SAU (<=20); B2 GLYCOPROTEIN IGG <9 SGU (<=20); B2 GLYCOPROTEIN IGM <9 SMU (<=20); LUPUS ANTICOAGULANT** TC36573X Negative (Negative); PROTEIN C ACTIVITY** TC 1777X 80 % (70-180); PROTEIN S ACT(FUNCT)**1779X 78 % (70-150)
== END 2017-06-15 17:11 | disposition home or self-care (01) | DRG 194 ==
LOC: C.EDB 20:23 → C.2T 06-13 03:52 → ENRESERV 06-13 03:59 → C.MS4W 06-13 18:12
PROVIDERS: ADMIT Hospitalist; ATTEND Hospitalist
DX: J18.9 Pneumonia, unspecified organism (principal); A54.01 Gonococcal cystitis and urethritis, unspecified; I82.612 Acute embolism and thrombosis of superficial veins of left upper extremity; F12.10 Cannabis abuse, uncomplicated; F17.200 Nicotine dependence, unspecified, uncomplicated; D64.9 Anemia, unspecified

== ENCOUNTER 2017-10-13 20:35 | Emergency (ER) | payer SELFPAY ==
[~2017-10-13] VITALS: Ht 188 cm; Wt 105.5 kg
[~2017-10-13 20:35] MED LIST changes: -DOXY100C PO; +LEVO-459 PO; +OXYC-57 PO
[2017-10-13 20:46] VITALS: TEMP 36.7; Ht 188 cm; Wt 105.5 kg
[2017-10-13] MEDS ORDERED: LORAZEPAM 1 MG TAB SL STA ×3 (21:11→23:20)
[2017-10-13] MEDS ORDERED: CLONIDINE HCL 0.1 MG TAB ONE ×3 (21:14→23:30)
[2017-10-13] MEDS ORDERED: CLONIDINE HCL 0.1 MG TAB PO ONE ×3 (21:15→23:30)
[2017-10-13] MEDS ORDERED: PROMETHAZINE HCL 25 MG TAB PO ONE ×3 (21:15→23:30)
--- NOTE | 2017-10-13 21:15 | EMERGENCY ROOM VISIT NOTE ---
History Report prepared by Nicky: Carmel Franco Under the Supervision of: Dr. Venu Barnhart M.D. First contact with patient: 21:08 Chief Complaint: DETOX REQUEST Stated Complaint: WITHDRAWL FROM OPIATES Nursing Triage Summary: patient states he last used heroin 3 days ago and is accepted at [facility] in the AM for rehab. patient states he is having periods of feeling hot/cold, " shakes", nausea, irritability. patient states he called in to ED earlier and was told he could come here to receive medication to help him make it until nereida am. History of Present Illness The patient is a 22 year old male who presents to the Emergency Room with complaints of a detox request from heroin. The patient states that he last had heroin 3 days ago. He reports that he would like help with his symptoms before he goes to [facility] tomorrow at 7 an. The patient reports that he has been itchy and has had nausea but no vomiting. The patient states that he has never been to rehabilitation before. The patient reports no active medical problems. Source of History: patient Onset: today Position: other (global) Quality: other (detox request) Associated Symptoms: + nausea, No vomiting Note: additional symptom: itchiness Review of Systems See HPI for pertinent positives & negatives. A total of 10 systems reviewed and were otherwise negative. Past Medical & Surgical Medical Problems: (1) Cannabis Abuse-Unspec (2) Drug Abuse Nec-Unspec (3) Pneumonia (4) Tobacco Use Disorder Family History Diabetes mellitus Social History Smoking Status: Current Every Day Smoker Alcohol Use: none Drug Use: heroin, marijuana, other Marital Status: single Housing Status: lives with family Current/Historical Medications No Active Prescriptions or Reported Meds Allergies Coded Allergies: Penicillins (Unverified Allergy, Unknown, stomach issues, 10/13/17) Physical Exam Vital Signs Date Time Temp Pulse Resp B/P (MAP) Pulse Ox O2 Delivery O2 Flow Rate FiO2 10/13/17 23:39 78 18 130/72 98 10/13/17 21:52 78 20 133/71 98 Room Air 10/13/17 20:46 36.7 105 20 160/93 96 Room Air Physical Exam GENERAL: Patient is in no acute distress. HEENT: No acute trauma, normocephalic atraumatic, mucous membranes moist, no nasal congestion, no scleral icterus. NECK: No stridor, no adenopathy, no meningismus, trachea is midline. LUNGS: Clear to auscultation bilaterally, no wheeze, no rhonchi, breath sounds equal. HEART: Mildly tachycardic, regular rhythm, no murmurs. ABDOMEN: Soft, nontender, bowel sounds positive, no hernias, no peritonitis. EXTREMITIES: No cyanosis or edema, full range of motion of all the joints without pain or difficulty, no signs for acute trauma. NEUROLOGIC: Oriented x 3, no acute motor or sensory deficits, no focal weakness. SKIN: No rash, no jaundice, no diaphoresis. Medical Decision & Procedures Medications Administered Medications (Trade) Dose Ordered Sig/Chiqui Route Start Time Stop Time Status Last Admin Dose Admin Promethazine HCl (Phenergan Tab) 50 mg NOW ONCE PO 10/13/17 21:15 10/13/17 21:16 DC 10/13/17 21:18 50 MG Clonidine HCl (Catapres Tab) 0.2 mg NOW ONCE PO 10/13/17 21:15 10/13/17 21:16 DC 10/13/17 21:16 0.2 MG Lorazepam (Ativan Tab) 1 mg NOW STAT SL 10/13/17 21:11 10/13/17 21:12 DC 10/13/17 21:18 1 MG Promethazine HCl (Phenergan Tab) 50 mg NOW ONCE PO 10/13/17 22:30 10/13/17 22:31 DC 10/13/17 22:31 50 MG Clonidine HCl (Catapres Tab) 0.2 mg NOW ONCE PO 10/13/17 22:30 10/13/17 22:31 DC 10/13/17 22:32 0.2 MG Lorazepam (Ativan Tab) 2 mg NOW STAT SL 10/13/17 22:18 10/13/17 22:20 DC 10/13/17 22:32 2 MG Lorazepam (Ativan Tab) 2 mg NOW STAT SL 10/13/17 23:20 10/13/17 23:23 DC 10/13/17 23:35 2 MG Promethazine HCl (Phenergan Tab) 50 mg NOW ONCE PO 10/13/17 23:30 10/13/17 23:31 DC 10/13/17 23:36 50 MG Clonidine HCl (Catapres Tab) 0.2 mg NOW ONCE PO 10/13/17 23:30 10/13/17 23:31 DC 10/13/17 23:36 0.2 MG ED Course 2109: The patient was evaluated in room B4B. A complete history and physical exam was performed. 2110: Ordered Ativan Tab 1 mg SL. 2114: Ordered Clonidine HCl 0.2 mg PO, Phenergan Tab 50 mg PO. 2216: I checked on the patient and he is still a little symptomatic. 2217: Ordered Lorazepam 2 mg SL. 0: Ordered Promethazine HCl 50 mg PO. 2320: Ordered Ativan Tab 2 mg SL, Clonidine HCl 0.2 mg PO, Phenergan Tab 50 mg PO. 5: Reevaluated the patient, he is feeling better. Discussed results and discharge instructions: He verbalized understanding and agreement. The patient is ready for discharge. Medical Decision The patient is a 22 year old male who presents to the ED with complaints of a detox request. Differential diagnoses considered include narcotic withdrawal, withdrawal, dehydration, benzo withdrawal, electrolyte imbalance, and anemia. The patient presents with complaints of heroin withdrawal. He is set to be admitted to [facility] rehab facility tomorrow. His appointment is at 7 AM. He is here this evening to help offset some of his symptoms. The patient was stable, his history and exam were consistent with narcotic withdrawal. He received oral clonidine, oral Phenergan and oral Ativan. He felt slightly better and a second round of the same medications was given. He felt markedly better afterwards. The patient will be discharged with a third round of the same medications for him to use at home if needed. He will follow- up for rehab as scheduled. Medication Reconcilliation Current Medication List: was personally reviewed by me Blood Pressure Screening Patient's blood pressure: Elevated blood pressure Blood pressure disposition: Elevated BP felt to be situational Impression Primary Impression: Heroin withdrawal Scribe Attestation The scribe's documentation has been prepared under my direction and personally reviewed by me in its entirety. I confirm that the note above accurately reflects all work, treatment, procedures, and medical decision making performed by me. Departure Information Dispostion Home / Self-Care Prescriptions No Active Prescriptions or Reported Meds Referrals No Doctor, Assigned (PCP) Forms HOME CARE DOCUMENTATION FORM, IMPORTANT VISIT INFORMATION, WORK / SCHOOL INSTRUCTIONS Patient Instructions My [facility] Additional Instructions use the phenergan 2 tab tonight if needed use the clonidine tab tonight if needed use the ativan tab tonight if needed rehab tomorrow as scheduled return if worsening
[2017-10-13 23:39] VITALS: BP 130/72; PULSE 78; O2SAT 98
== END 2017-10-13 23:40 | disposition home or self-care (01) ==
LOC: C.EDB 20:36
DX: F11.23 Opioid dependence with withdrawal (principal); F12.10 Cannabis abuse, uncomplicated; Z87.01 Personal history of pneumonia (recurrent); F17.210 Nicotine dependence, cigarettes, uncomplicated; Z88.0 Allergy status to penicillin

== ENCOUNTER 2020-04-05 14:15 | Inpatient (IN) ==
[2020-04-05] MEDS ORDERED: LORazepam 1 MG TAB SL STA (14:33)
--- NOTE | 2020-04-05 14:38 | Emergency Department Note ---
History of Present Illness General Chief complaint: Mental Health Evaluation Stated complaint: MENTAL HEALTH EVAL Time Seen by Provider: 04/05/20 14:23 Source: patient and family (Mother who is at the bedside) Mode of arrival: ambulatory Limitations: no limitations History of Present Illness Maximum Pain Intensity: 0 This patient is a 25-year-old male who comes in after not sleeping for about 4 days. Also been hearing voices in his head for about 4 days. No history of hearing voices. He has been stressed lately as he says he is been stuck in his house isolating himself from COVID also he lost his kids in a custody settlement 2 weeks ago. He did think about harming himself and tried to cut himself with a dull knife in the left wrist however he did not actually cut himself. His immunizations are up-to-date. He has been feeling depressed lately. He has been feeling anxious. He is on Adderall but has not taken it for a couple days. Denies history of recent alcohol or drug use. No known exposure to covert. No fever or chills. No flulike symptoms Home Medications Home Medications Medication Instructions Recorded Confirmed Type buprenorphine-naloxone [Suboxone] 1 tab SUBLINGUAL BID 04/05/20 04/05/20 History dextroamphetamine-amphetamine 30 mg PO TID 04/05/20 04/05/20 History Allergies Allergy/AdvReac Type Severity Reaction Status Date / Time Penicillins Allergy Intermediate stomach Verified 04/05/20 14:32 issues Past Med/Surg History Medical History No significant past medical history Right pulmonary embolus Family History Other Family history of stroke Social History Smoking Status: Current every day smoker Tobacco Type: Cigarettes Preferred Language: Peruvian Communication Ability: Effective Clinical Research Specialist Required: No Beliefs That Will Affect Care: None Feels Safe at Home: Yes Review of Systems A total of 10 systems reviewed and were otherwise negative Physical Exam Vital Signs Vital Signs - 24 hr 04/05/20 14:17 Temperature 37.1 C Temperature Source Oral Pulse Rate 110 H Respiratory Rate 20 Blood Pressure 121/79 Blood Pressure Mean 93 Pulse Oximetry 100 Sepsis Recent Fever Within 48 Hours No Sepsis New/Unexplained Change in Mental Status N/A Sepsis Action Taken by Nursing No Action Required Course Administered Medications Buprenorphine/Naloxone (Buprenorphine/Naloxone 8/2 Mg Tab) 1 tab SL BID DIOMEDES Stop: 05/05/20 20:59 Last Admin: 04/05/20 20:34 Dose: 1 tab Documented by: [id number] Discontinued Medications Lorazepam (Lorazepam 1 Mg Tab) 1 mg SL NOW STA Stop: 04/05/20 14:34 Last Admin: 04/05/20 14:47 Dose: 1 mg Documented by: [id number] Nicotine (Nicotine 14 Mg/24 Hr Patch) 14 mg TD QAM DIOMEDES Stop: 05/05/20 16:44 Last Admin: 04/05/20 16:46 Dose: 14 mg Documented by: [id number] Quetiapine Fumarate (Quetiapine Fumarate 100 Mg Tablet) 100 mg PO HS ONE Stop: 04/05/20 17:55 Last Admin: 04/05/20 19:24 Dose: 100 mg Documented by: [id number] Medical Decision Making Differential Diagnosis Depression, anxiety, substance abuse, suicidal ideations, electrolyte or metabolic abnormality, infection, COVID Medical Records Attestation: I reviewed the patient's medical records. Home Medications Current Medication List: was personally reviewed by me Laboratory Data Attestation: I reviewed the patient's lab results. Result diagrams: 04/05/20 14:42 04/05/20 14:42 Lab Results 04/05/20 04/05/20 04/05/20 Range/Units 14:30 14:30 14:42 WBC 7.55 (4.8-10.8) K/uL RBC 4.81 (4.7-6.1) M/uL Hgb 15.8 (14.0-18.0) g/dL Hct 44.8 (42-52) % MCV 93.1 (80-100) fL MCH 32.8 (25-34) pg MCHC 35.3 (32-36) g/dL RDW Std Deviation 40.1 (36.4-46.3) fL RDW Coeff of Nguyen 11.8 (11.5-14.5) % Plt Count 332 (130-400) K/uL MPV 9.8 (7.4-10.4) fL Immature Gran % (Auto) 0.1 % Neut % (Auto) 69.6 % Lymph % (Auto) 24.6 % Ocean % (Auto) 4.5 % Eos % (Auto) 0.9 % Baso % (Auto) 0.3 % Neut # (Auto) 5.25 (1.4-6.5) K/uL Lymph # (Auto) 1.86 (1.2-3.4) K/uL Ocean # (Auto) 0.34 (0.11-0.59) K/uL Eos # (Auto) 0.07 (0-0.5) K/uL Baso # (Auto) 0.02 (0-0.2) K/uL Immature Gran # (Auto) 0.01 (0.00-0.02) K/uL Sodium (136-145) mmol/L Potassium (3.5-5.1) mmol/L Chloride (98-107) mmol/L Carbon Dioxide (21-32) mmol/L Anion Gap (3-11) BUN (7-18) mg/dl Creatinine (0.6-1.4) mg/dl Est Cr Clr Drug Dosing ml/min Est GFR ( Amer) Est GFR (Non-Af Amer) BUN/Creatinine Ratio (10-20) Glucose (70-99) mg/dl Calcium (8.5-10.1) mg/dl Total Bilirubin (0.2-1) mg/dl AST (15-37) U/L ALT (12-78) U/L Alkaline Phosphatase (45-117) U/L Total Protein (6.4-8.2) gm/dl Albumin (3.4-5.0) gm/dl Globulin (2.5-4.0) gm/dl Albumin/Globulin Ratio (0.9-2) TSH (0.300-4.500) uIu/ml Urine Color Dark Yellow Urine Appearance Clear (Clear) Urine pH 6.5 (4.5-7.5) Ur Specific [place] 1.032 H (1.000-1.030) Urine Protein Negative (Negative) Urine Glucose (UA) Negative (Negative) Urine Ketones Trace H (Negative) Urine Blood Negative (Negative) Urine Nitrite Negative (Negative) Urine Bilirubin Negative (Negative) Urine Urobilinogen Positive H (Negative) Ur Leukocyte Esterase Trace H (Negative) Urine WBC (Auto) 0 (0-5) /hpf Urine RBC (Auto) 0-4 (0-4) /hpf U Hyaline Cast (Auto) 1-5 (0-5) /lpf U Epithel Cells (Auto) 0-5 (0-5) /lpf Urine Bacteria (Auto) Negative (Negative) Salicylates (2.8-20) mg/dl Urine Opiates Screen Neg (Neg) Ur Methadone, Qual Neg (Neg) Acetaminophen (10-30) ug/ml Urine Barbiturates Neg (Neg) Ur Phencyclidine (PCP) Neg (Neg) U Amphetamin/Meth Scrn Pos H (Neg) MDMA (Ecstasy) Screen Neg (Neg) U Benzodiazepines Scrn Neg (Neg) Ur Cocaine Metabolite Neg (Neg) U Marijuana (THC) Screen Neg (Neg) Ethyl Alcohol mg/dL (0-3) mg/dl 04/05/20 04/05/20 04/05/20 Range/Units 14:42 14:42 14:42 WBC (4.8-10.8) K/uL RBC (4.7-6.1) M/uL Hgb (14.0-18.0) g/dL Hct (42-52) % MCV (80-100) fL MCH (25-34) pg MCHC (32-36) g/dL RDW Std Deviation (36.4-46.3) fL RDW Coeff of Nguyen (11.5-14.5) % Plt Count (130-400) K/uL MPV (7.4-10.4) fL Immature Gran % (Auto) % Neut % (Auto) % Lymph % (Auto) % Ocean % (Auto) % Eos % (Auto) % Baso % (Auto) % Neut # (Auto) (1.4-6.5) K/uL Lymph # (Auto) (1.2-3.4) K/uL [place] # (Auto) (0.11-0.59) K/uL Eos # (Auto) (0-0.5) K/uL Baso # (Auto) (0-0.2) K/uL Immature Gran # (Auto) (0.00-0.02) K/uL Sodium 138 (136-145) mmol/L Potassium 3.9 (3.5-5.1) mmol/L Chloride 104 (98-107) mmol/L Carbon Dioxide 28 (21-32) mmol/L Anion Gap 6.0 (3-11) BUN 13 (7-18) mg/dl Creatinine 1.16 (0.6-1.4) mg/dl Est Cr Clr Drug Dosing 123.9 ml/min Est GFR ( Amer) 99.5 Est GFR (Non-Af Amer) 85.8 BUN/Creatinine Ratio 11.6 (10-20) Glucose 112 H (70-99) mg/dl Calcium 9.2 (8.5-10.1) mg/dl Total Bilirubin 0.7 (0.2-1) mg/dl AST 50 H (15-37) U/L ALT 117 H (12-78) U/L Alkaline Phosphatase 68 (45-117) U/L Total Protein 8.3 H (6.4-8.2) gm/dl Albumin 4.2 (3.4-5.0) gm/dl Globulin 4.1 H (2.5-4.0) gm/dl Albumin/Globulin Ratio 1.0 (0.9-2) TSH 0.849 (0.300-4.500) uIu/ml Urine Color Urine Appearance (Clear) Urine pH (4.5-7.5) Ur Specific [place] (1.000-1.030) Urine Protein (Negative) Urine Glucose (UA) (Negative) Urine Ketones (Negative) Urine Blood (Negative) Urine Nitrite (Negative) Urine Bilirubin (Negative) Urine Urobilinogen (Negative) Ur Leukocyte Esterase (Negative) Urine WBC (Auto) (0-5) /hpf Urine RBC (Auto) (0-4) /hpf U Hyaline Cast (Auto) (0-5) /lpf U Epithel Cells (Auto) (0-5) /lpf Urine Bacteria (Auto) (Negative) Salicylates 2.4 L (2.8-20) mg/dl Urine Opiates Screen (Neg) Ur Methadone, Qual (Neg) Acetaminophen < 2 L (10-30) ug/ml Urine Barbiturates (Neg) Ur Phencyclidine (PCP) (Neg) U Amphetamin/Meth Scrn (Neg) MDMA (Ecstasy) Screen (Neg) U Benzodiazepines Scrn (Neg) Ur Cocaine Metabolite (Neg) U Marijuana (THC) Screen (Neg) Ethyl Alcohol mg/dL < 3.0 (0-3) mg/dl Imaging Data Attestation: I personally reviewed and interpreted this imaging study as follows: Blood Pressure Blood Pressure Findings: Normal blood pressure Blood Pressure Disposition: did not require urgent referral MDM Narrative This patient comes in voluntarily with his mother. He has not been sleeping has been hearing voices this is caused him a lot of stress she has been feeling depressed and has had suicidal ideations. He does have a history of heroin abuse in the past but says he has been clean for 2 years she is on Suboxone for the last year. He denies alcohol use. He is cooptive but says he feels anxious and asked for something for anxiety. He was given Ativan 1 mg sublingual. He was reassessed frequently. He has no fever or white count to suggest infection. He has no acute electrolyte or metabolic abnormalities. Alcohol was negative. His urine drug screen was positive for amphetamines consistent with him being on Adderall. He was medically cleared and was further evaluated by our psychiatric case preparer and liner. He is going to be admitted voluntarily to [facility] for further inpatient treatment and evaluation. Impression & Plan Anxiety, Depression, Hearing voices, Suicidal ideations Discharge Plan Visit Data Chief Complaint: Mental Health Evaluation Stated Complaint: MENTAL HEALTH EVAL ED Provider: Guillermo Dallas Discharge Problem: Anxiety, Depression, Hearing voices, Suicidal ideations Patient Disposition: Admitted As Inpatient Discharge Instructions Interventions: ED Discharge Assessment Last Done: 04/05/20 18:22 Discharge Problem: Depression Qualifiers: Depression Type: unspecified Qualified Code(s): F32.9 - Major depressive disorder, single episode, unspecified
[2020-04-05 14:49] LABS: Appearance Urine Clear (Clear); Bacteria Urine Automated Negative (Negative); Blood Urine Negative (Negative); Color Urine Dark Yellow; Epithelial Cell Urine Auto 0-5 /lpf (0-5); Glucose Urine UA Negative (Negative); Ketones Urine Trace (Negative); Leukocyte Esterase Urine Trace (Negative); Nitrite Urine Negative (Negative); Protein Urine Negative (Negative); RBC Urine Automated 0-4 /hpf (0-4); Specific Gravity Urine 1.032 (1.000-1.030); Urobilinogen Urine Positive (Negative); WBC Urine Automated 0 /hpf (0-5); pH Urine 6.5 (4.5-7.5)
[2020-04-05 15:02] LABS: Basophils # (auto) 0.02 K/uL (0-0.2); Basophils % (auto) 0.3 %; Eosinophils # (auto) 0.07 K/uL (0-0.5); Eosinophils % (auto) 0.9 %; Hematocrit (blood only) 44.8 % (42-52); Hemoglobin 15.8 g/dL (14.0-18.0); Immature Granulocytes # (auto) 0.01 K/uL (0.00-0.02); Immature Granulocytes % (auto) 0.1 %; Lymphocytes # (auto) 1.86 K/uL (1.2-3.4); Lymphocytes % (auto) 24.6 %; Mean Corpuscular Hemoglobin 32.8 pg (25-34); Mean Corpuscular Hgb Conc 35.3 g/dL (32-36); Mean Corpuscular Volume 93.1 fL (80-100); Mean Platelet Volume 9.8 fL (7.4-10.4); Monocytes # (auto) 0.34 K/uL (0.11-0.59); Monocytes % (auto) 4.5 %; Neutrophils # (auto) 5.25 K/uL (1.4-6.5); Neutrophils % (auto) 69.6 %; Platelet Count 332 K/uL (130-400); RDW Coefficient of Variation 11.8 % (11.5-14.5); RDW Standard Deviation 40.1 fL (36.4-46.3); Red Blood Count 4.81 M/uL (4.7-6.1); White Blood Count 7.55 K/uL (4.8-10.8)
[2020-04-05 15:09] LABS: Amphetamines+Metham, Urine Pos (Neg); Barbiturates, Urine Neg (Neg); Benzodiazepine, Urine Neg (Neg); Cocaine, Urine Neg (Neg); MDMA (Ecstacy), Urine Neg (Neg); Methadone, Urine Neg (Neg); Opiate, Urine Neg (Neg); Phencyclidine, Urine Neg (Neg)
[2020-04-05 15:10] LABS: Bilirubin Urine Negative (Negative); Ictotest Urine Negative (Negative)
[2020-04-05 15:20] LABS: Albumin Level 4.2 gm/dl (3.4-5.0); BUN Creatinine Ratio 11.6 (10-20); Calcium 9.2 mg/dl (8.5-10.1); Creatinine Clr Calc Pharmacy 123.9 ml/min; Est GFR (African American) 99.5; Est GFR (Non-African American) 85.8; Potassium 3.9 mmol/L (3.5-5.1)
[2020-04-05 15:31] LABS: Bilirubin,Total 0.7 mg/dl (0.2-1); Globulin 4.1 gm/dl (2.5-4.0); Thyroid Stimulating Hormone 0.849 uIu/ml (0.300-4.500); Total Protein 8.3 gm/dl (6.4-8.2)
[2020-04-05 15:42] LABS: Acetaminophen < 2 ug/ml (10-30); Salicylate 2.4 mg/dl (2.8-20)
[2020-04-05] MEDS ORDERED: NICOTINE 14 MG/24 HR PATCH TD SCH (16:45)
[2020-04-05] MEDS ORDERED: SODIUM CHLORIDE 0.65% NA SOLN 45 ML (OCEAN) PRN (17:50)
[2020-04-05] MEDS ORDERED: BISMUTH SUBSALICYLATE PER ML OMNICELL CHARGE PO PRN (17:50)
[2020-04-05] MEDS ORDERED: hydrOXYzine HCl 25 MG TAB PO PRN (17:50)
[2020-04-05] MEDS ORDERED: NICOTINE POLACRILEX 2 MG GUM MT PRN (17:50)
[2020-04-05] MEDS ORDERED: ACETAMINOPHEN 325 MG TAB PO PRN (17:50)
[2020-04-05] MEDS ORDERED: ALUMINUM/MAGNESIUM SUSP 30 ML UDC PO PRN (17:50)
[2020-04-05] MEDS ORDERED: QUEtiapine FUMARATE 100 MG TABLET PO ONE (17:54)
[2020-04-05] MEDS: BUPRENORPHINE/NALOXONE 8/2 MG TAB SL SCH (20:34)
[2020-04-05] MEDS ORDERED: NON-FORMULARY MEDICATION (Buprenorphine-Naloxone 1 TAB) SL SCH (21:00)
[2020-04-06 08:27] LABS: Glucose Fasting 88 mg/dl (70-99)
[2020-04-06 08:34] LABS: Chol HDL Ratio 3; Cholesterol 158 mg/dl (0-200); HDL Cholesterol 50 mg/dl; LDL Cholesterol Calculated 85 mg/dl; Triglycerides 114 mg/dl (0-150); VLDL Cholesterol 23 mg/dl
[2020-04-06] MEDS ORDERED: BUPRENORPHINE/NALOXONE 8/2 MG TAB SL SCH (09:00)
[2020-04-06] MEDS ORDERED: risperiDONE ODT 0.5 MG SOLTAB PO PRN (12:29)
[2020-04-06] MEDS: NICOTINE 21 MG/24 HR TDSY TD SCH (13:04)
[2020-04-06] MEDS: risperiDONE ODT 0.5 MG SOLTAB PO SCH ×2 (13:05→21:12)
[2020-04-06] MEDS: BUPRENORPHINE/NALOXONE 8/2 MG TAB SL SCH ×2 (13:05→21:12)
--- NOTE | 2020-04-06 13:42 | History & Physical ---
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 Opiate use disorder in remission with usage of suboxone reported h/o ADHD as rationale for Adderall medications being rx'd, r/o psychosis NOS, r/o Depressive disorder r/o bipolar d/o (1) Psychosis: 04/06 - stopped adderall xr and adderall ir educated pt about over usage of such medications has tendency to bring out psychotic smyptoms simmilar to his presentation and withdrawal brings out depressive smyptoms added risperdal 0.5mg odt 1 po bid plus 0.5mg odt 0.5mg prn up to twice a day for psychotic symptoms after r/b/a reviewed monitor for primary mood disorders, including MDD or bipolar d/o and treat accordingly family meeting with mother to be set up coordinate with outpt provider, re:suboxone and adderall and psychosis/mood concerns and usage concerns setting up aftercare for outpt psychiatric care and outpt psychotherapy appts mileui therapy and individual and group inpt therapy q15 minutes safety checks for SI MNPR given degree of paranoia and disorganized thinking and command AH fasting sugar and lipids fully normal done on 04/06 adrressed 72 notice, pt indicating considering resinding notice given desire for treatment and given imrpovement of comfort but not ready yet with psychotic symptoms apeparing to impact this assessing need for invol committment hearing given degre of psychotic symtptoms and disorgnaized behaviors and SI and acts of furtherance in past few days if pt still having notable symptoms and does not rescind 72 notice Present on Admission?: Yes (2) Substance use disorder: 04/06 maintained suboxone at 8mg 1 bid coordinate with outpt prescribing and usage concerns and psychosis and mood concerns stopped adderall xr and ir and educate about his misuse and CHRIS concerns and how likely a main precipitating factor nicotine replacement (patch 21mg and prn niciotine) or while on unit with aim to see about quitting, pt too psychotic too conduct more detailed tobacco cessation education today Inventory Assets Strengths: expressing insight into paranoia and AH and seeking treatment, expressing fine with ceasing adderall and related medications, safety assisstance given Comand AH with acts of furthererance occurring Needs: outpt psychiatry appointments, clarification of primary mood/psychotic dx's and if ADHD is accurate dx, sobriety from substances and his missue of rx'd psychostimulants Risk Factors Assessment Male: Yes : Yes Health Problems: No Mental Health Diagnoses: Yes Substance Use Disorders: Yes Previous Attempt: Yes Previous Attempt; Highly Lethal: No Previous Psychiatric Hospitalization: Yes Smoker: Yes Protective Factors Assessment Employed: No (seeking employement) Psychiatric History Identifying Data AYDEE BROWN is a 25-year-old Male who currently lives alone in [place], [place], has a history of heroin use disorder treated with suboxone and reported ADHD treated with Adderall xr and Adderall ir, and self reported depressive symptoms and was admitted on 04/05/20 17:50 on a 302 involuntary commitment for psychotic symptoms with command Auditory Hallucinations telling him to kill himself with 2 recent behaviors involving non lethal suicidal attempts. . Chief Complaint "hearing voices telling me that I am no good and to kill myself" History of Present Illness Pt is a 25 yr old male reporting depressive symptoms for extended time now who for hte past 5 days have been having derogatory Ah and command AH to kill himself while not being able to sleep at night. Pt endorsed taking about 4 extra pills of Suboxone 2 days ago as a suicide attempt and a day separately trying to cut his wrist in suicidal attempt with a butter knife (without laceration occurring). He denied having AH in the past. He is rx'd Suboxone at 8mg po bid and Adderall ir at 30mg bid wit cheney recent script of Adderall xr 30mg 1 po qday as well rx'd. Pt indicates he takes Adderall ir up to 4 times a day, with 1-2 tabs per dose and it appears that he tends to take 4-6 pills, and perhaps sometimes more in a day. He indicated only sometimes takes Adderall xr and takes it 1 pill up to twice a day it seems. It seemed that he sometimes has taken both forms of Adderall in the same day but I am not 100% certain of this, with pt being vague in sharing how he takes the medication and show card writer exploring this in depth. Pt can take the Adderall dose even at night and it has him stay up overnight when does so. He denied any times of manic symptoms separate from notable Adderall usage being involved. He indicated that he is and tends to be paranoid in his thinking and that his paranoid thinking is brought out by the Adderall usage. He denied h/o of Ah prior to about 5 days ago. Pt is fine with stopping Adderall medications as appears to be realizing that his usage of it is precipitating or at least aggravating his above concerns. He endorsed tendency to sleep for days and to have poor motivation and follow through and depressed mood. His mood has worsened further in the past 2 weeks tied to his losing custody of his 3 children, with them now living with their mother in [place]. Pt is missing having his children. He denied knowing why the child custody arrangement was recently changed by the plastic top assembler. He reported poor appetite lately and limited eating lately with mother bringing him fast food about 2 days ago as last real meal and denied eating breakfast this morning and denied appetite during this assessment ( occurred rather late morning). He reported sleeping well last night and that his AH is ongoing but less intense this morning then recent days but still derogatory and with command AH to end his life and has him thinking of various ways that can do so. He denied h/o HI or h/o physical aggressive behaviors. He denied other recent self injuries behaviors.He takes Suboxone for history of IV heroin usage with denying any usage of that or other opiates during the past 1 1/2 years on Suboxone. He endorsed taking Suboxone 8mg 1-2 times a day (rx'd at 8mg BID). Both his Suboxone and his Adderall xr/ir medications are rx'd by Dr. Pena. He was using cannabis quite regularly but last used 2 months ago and ceased usage out of fear of losing his controlled medications if determined on tox screen. He is open to seeing a psychiatrist. He indicates the Adderall scripts were rx'd for ADHD but when inquired about what lead to the ADHD dx he indicated "I don't know" Pt exhibited some disorganization in his thought process and was a bit hard to hear his speech with his concentration seeming impaired and with some paranoid thinking noted. Smokes cigs 1 ppd. past h/o various substance usage over the years but denied usage of any other substances in over 1 1/2 years. Past Psychiatric History Current Psychiatric Diagnosis: ADD; depression; anxiety Outpatient Services: Dr. Pena for suboxone and adderall for past 1 1/2 years, denied other h/o outpt services Previous Psych Admissions: [facility] approx 10 or so years ago ] hx of 2 inpt rehab substance treatments, most recently [facility] for Heroin usage, left after 14 days with recomendation length of stay 21 days, prior one wias years ago for Meth usage. History of Previous Suicide Attempt: Yes Describe Attempts in the Past: Hx of overdose on pills Past Medication Trials: adderall xr and adderall ir Past Head Trauma/Neuro History History of Concussion/Seizure: No Allergies Allergy/AdvReac Type Severity Reaction Status Date / Time Penicillins Allergy Intermediate stomach Verified 04/05/20 14:32 issues Home Medications Home Medications Medication Instructions Recorded Confirmed Type buprenorphine-naloxone [Suboxone] 1 tab SUBLINGUAL BID 04/05/20 04/05/20 History dextroamphetamine-amphetamine 30 mg PO TID 04/05/20 04/05/20 History Family History Family History of: Depression and Anxiety Alcohol History Hx of Alcohol Use Over the Past 12 Months: No AUDIT Total Score: 0 Smoking Use Have You Smoked or Used Tobacco Products in the Last 30 Days: Yes tobacco type: cigarettes Smoking Status: Current every day smoker Smoking packs per day: 1.5 Substance History Hx of Prescription Med Misuse Over the Past 12 Months: Yes Hx of Over the Counter Med Misuse Over the Past 12 Months: No Hx of Inhalent Misuse Over the Past 12 Months: No Hx of Organic Substance Use Over the Past 12 Months: Yes (Clean from Heroin past 1.5 years) Hx of Illegal Substances/Street Drug Use Over Past 12 Months: No Problems as a Result of Past Substance Use: None Identified Problems as a Result of Past Substance Use Comments: served time in group home, probation violation, DUI Personal History Living Arrangements: Home Highest Grade Completed: G.E.D. (dropepd out in school in 12th grade ) Employment Status: Unemployed Marital Status: Number Of Children: 3 Beliefs That Will Affect Care: None Current Legal Problems: No Hx Legal Problems: Yes Hx Traumatic Life Events: Yes Psychological Trauma History Comment: recent change of history of children from him to mother of his children (who lives in [place]) Patient History Medical History No significant past medical history Right pulmonary embolus Family History Other Family history of stroke Social History Smoking Status: Current every day smoker Tobacco Type: Cigarettes Preferred Language: Lao Communication Ability: Effective Records Assistant Required: No Beliefs That Will Affect Care: None Feels Safe at Home: Yes Review of Systems Review of Systems: All systems reviewed & are unremarkable except as noted in HPI & below Gastrointestinal: + nausea and + vomiting (6 times the day prior ) Integumentary: + non-healing lesions (midline sacral area ) Neurologic: headache day prior Physical Exam Psychiatric: Orientation: alert and oriented x 3 Apperance: + disheveled Eye Contact: + poor eye contact Motor Behavior: + psychomotor retardation soft speech Affect: + depressed affect and + blunted affect Mood: + depressed mood Thought Process: + tangential thought process; + thought process not clear or coherent Thought Content: + paranoid Suicidal Tho ughts: denies suicidal intent denied concrete specific suicidal plan but has various thoughts of various ways Hallucinations: + auditory hallucinations; no visual hallucinations and no tactile hallucinations Cognition: remote memory grossly intact; + attention not intact Estimated Intelligence: consistent with education level Insight: + impaired insight Judgement: + impaired judgement Vital Signs (Past 24 Hours): Last Vital Signs Temp 36.7 C 04/06/20 06:45 Pulse 85 04/06/20 06:45 Resp 16 04/06/20 06:45 BP 116/71 04/06/20 06:45 Pulse Ox 100 04/05/20 18:22 Physical Examination: A physical exam was performed in the ER prior to admission to the unit by Dr. Dallas. I accept that physical as sufficient and correct for purpose of this admission. Results & Data ([facility]) Laboratory Results Laboratory Results - last 24 hr 04/05/20 04/05/20 04/05/20 14:30 14:30 14:30 WBC RBC Hgb Hct MCV MCH MCHC RDW Std Deviation RDW Coeff of Nguyen Plt Count MPV Immature Gran % (Auto) Neut % (Auto) Lymph % (Auto) Heard % (Auto) Eos % (Auto) Baso % (Auto) Neut # (Auto) Lymph # (Auto) Heard # (Auto) Eos # (Auto) Baso # (Auto) Immature Gran # (Auto) Sodium Potassium Chloride Carbon Dioxide Anion Gap BUN Creatinine Est Cr Clr Drug Dosing Est GFR ( Amer) Est GFR (Non-Af Amer) BUN/Creatinine Ratio Glucose Fasting Glucose Calcium Total Bilirubin AST ALT Alkaline Phosphatase Total Protein Albumin Globulin Albumin/Globulin Ratio Triglycerides Cholesterol LDL Cholesterol, Calc VLDL Cholesterol, Calc HDL Cholesterol Cholesterol/HDL Ratio TSH Urine Color Dark Yellow Urine Appearance Clear Urine pH 6.5 Ur Specific [place] 1.032 H Urine Protein Negative Urine Glucose (UA) Negative Urine Ketones Trace H Urine Blood Negative Urine Nitrite Negative Urine Bilirubin Negative Urine Urobilinogen Positive H Ur Leukocyte Esterase Trace H Urine WBC (Auto) 0 Urine RBC (Auto) 0-4 U Hyaline Cast (Auto) 1-5 U Epithel Cells (Auto) 0-5 Urine Bacteria (Auto) Negative Salicylates Urine Opiates Screen Neg Ur Methadone, Qual Neg Acetaminophen Urine Barbiturates Neg Ur Phencyclidine (PCP) Neg U Amphetamines Confirm Pending U Amphetamin/Meth Scrn Pos H U Methamphetamin Confrm Pending MDMA (Ecstasy) Screen Neg U Benzodiazepines Scrn Neg Ur Cocaine Metabolite Neg U Marijuana (THC) Screen Neg Drug Screen Comment Pending Ethyl Alcohol mg/dL 04/05/20 04/05/20 04/05/20 14:42 14:42 14:42 WBC 7.55 RBC 4.81 Hgb 15.8 Hct 44.8 MCV 93.1 MCH 32.8 MCHC 35.3 RDW Std Deviation 40.1 RDW Coeff of Nguyen 11.8 Plt Count 332 MPV 9.8 Immature Gran % (Auto) 0.1 Neut % (Auto) 69.6 Lymph % (Auto) 24.6 Heard % (Auto) 4.5 Eos % (Auto) 0.9 Baso % (Auto) 0.3 Neut # (Auto) 5.25 Lymph # (Auto) 1.86 Heard # (Auto) 0.34 Eos # (Auto) 0.07 Baso # (Auto) 0.02 Immature Gran # (Auto) 0.01 Sodium 138 Potassium 3.9 Chloride 104 Carbon Dioxide 28 Anion Gap 6.0 BUN 13 Creatinine 1.16 Est Cr Clr Drug Dosing 123.9 Est GFR ( Amer) 99.5 Est GFR (Non-Af Amer) 85.8 BUN/Creatinine Ratio 11.6 Glucose 112 H Fasting Glucose Calcium 9.2 Total Bilirubin 0.7 AST 50 H ALT 117 H Alkaline Phosphatase 68 Total Protein 8.3 H Albumin 4.2 Globulin 4.1 H Albumin/Globulin Ratio 1.0 Triglycerides Cholesterol LDL Cholesterol, Calc VLDL Cholesterol, Calc HDL Cholesterol Cholesterol/HDL Ratio TSH 0.849 Urine Color Urine Appearance Urine pH Ur Specific [place] Urine Protein Urine Glucose (UA) Urine Ketones Urine Blood Urine Nitrite Urine Bilirubin Urine Urobilinogen Ur Leukocyte Esterase Urine WBC (Auto) Urine RBC (Auto) U Hyaline Cast (Auto) U Epithel Cells (Auto) Urine Bacteria (Auto) Salicylates 2.4 L Urine Opiates Screen Ur Methadone, Qual Acetaminophen < 2 L Urine Barbiturates Ur Phencyclidine (PCP) U Amphetamines Confirm U Amphetamin/Meth Scrn U Methamphetamin Confrm MDMA (Ecstasy) Screen U Benzodiazepines Scrn Ur Cocaine Metabolite U Marijuana (THC) Screen Drug Screen Comment Ethyl Alcohol mg/dL 04/05/20 04/06/20 14:42 07:33 WBC RBC Hgb Hct MCV MCH MCHC RDW Std Deviation RDW Coeff of Nguyen Plt Count MPV Immature Gran % (Auto) Neut % (Auto) Lymph % (Auto) Heard % (Auto) Eos % (Auto) Baso % (Auto) Neut # (Auto) Lymph # (Auto) Heard # (Auto) Eos # (Auto) Baso # (Auto) Immature Gran # (Auto) Sodium Potassium Chloride Carbon Dioxide Anion Gap BUN Creatinine Est Cr Clr Drug Dosing Est GFR ( Amer) Est GFR (Non-Af Amer) BUN/Creatinine Ratio Glucose Fasting Glucose 88 Calcium Total Bilirubin AST ALT Alkaline Phosphatase Total Protein Albumin Globulin Albumin/Globulin Ratio Triglycerides 114 Cholesterol 158 LDL Cholesterol, Calc 85 VLDL Cholesterol, Calc 23 HDL Cholesterol 50 Cholesterol/HDL Ratio 3 TSH Urine Color Urine Appearance Urine pH Ur Specific [place] Urine Protein Urine Glucose (UA) Urine Ketones Urine Blood Urine Nitrite Urine Bilirubin Urine Urobilinogen Ur Leukocyte Esterase Urine WBC (Auto) Urine RBC (Auto) U Hyaline Cast (Auto) U Epithel Cells (Auto) Urine Bacteria (Auto) Salicylates Urine Opiates Screen Ur Methadone, Qual Acetaminophen Urine Barbiturates Ur Phencyclidine (PCP) U Amphetamines Confirm U Amphetamin/Meth Scrn U Methamphetamin Confrm MDMA (Ecstasy) Screen U Benzodiazepines Scrn Ur Cocaine Metabolite U Marijuana (THC) Screen Drug Screen Comment Ethyl Alcohol mg/dL < 3.0 Current Inpatient Medications Current Inpatient Medications: Current Inpatient Medications Acetaminophen (Acetaminophen 325 Mg Tab) 650 mg PO Q4H PRN PRN Reason: Headache or Minor Fever Stop: 05/05/20 17:49 Al Hydrox/Mg Hydrox/Simethicone (Aluminum/Magnesium Susp 30 Ml Udc) 30 ml PO Q4H PRN PRN Reason: GI Upset Stop: 05/05/20 17:49 Bismuth Subsalicylate (Bismuth Subsalicylate Per Ml Omnicell Charge) 15 ml PO PRN PRN PRN Reason: Loose Stool Stop: 05/05/20 17:49 Buprenorphine/Naloxone (Buprenorphine/Naloxone 8/2 Mg Tab) 1 tab SL BID DIOEMDES Stop: 05/05/20 20:59 Last Admin: 04/05/20 20:34 Dose: 1 tab Documented by: Hydroxyzine HCl (Hydroxyzine Hcl 25 Mg Tab) 50 mg PO HSZ PRN PRN Reason: Insomnia Stop: 05/05/20 17:49 Hydroxyzine HCl (Hydroxyzine Hcl 25 Mg Tab) 25 mg PO Q4H PRN PRN Reason: Anxiety Stop: 05/05/20 17:49 Magnesium Hydroxide (Magnesium Hydroxide Susp 30 Ml Udc) 30 ml PO DAILY PRN PRN Reason: Constipation Stop: 05/05/20 17:49 Miscellaneous (Remove Nicoderm Patch) 1 ea N/A DAILY@[id number] [facility] Stop: 05/06/20 08:58 Nicotine (Nicotine 21 Mg/24 Hr Tdsy) 21 mg TD QAM [facility] Stop: 05/06/20 08:59 Nicotine Polacrilex (Nicotine Polacrilex 2 Mg Gum) 1 piece MT PRN PRN PRN Reason: Nicotine Withdrawal Stop: 05/05/20 17:49 Quetiapine Fumarate (Quetiapine Fumarate 25 Mg Tablet) 50 mg PO Q6 PRN PRN Reason: Anxiety/parsons Stop: 05/05/20 17:59 Risperidone (Risperidone Odt 0.5 Mg Soltab) 0.5 mg PO BID PRN PRN Reason: psychosis Stop: 05/06/20 12:28 Risperidone (Risperidone Odt 0.5 Mg Soltab) 0.5 mg PO BID [facility] Stop: 05/06/20 12:29 Sodium Chloride (Sodium Chloride 0.65% Na Soln 45 Ml (Solomon)) 1 - 2 sprays NA PRN PRN PRN Reason: Nasal Dryness/Congestion Stop: 05/05/20 17:49
[2020-04-06] MEDS: QUEtiapine FUMARATE 25 MG TABLET PO PRN (21:11)
[2020-04-06] MEDS: hydrOXYzine HCl 25 MG TAB PO PRN (22:36)
[2020-04-07] MEDS: NICOTINE 21 MG/24 HR TDSY TD SCH (10:17)
[2020-04-07] MEDS: risperiDONE ODT 0.5 MG SOLTAB PO SCH (10:17)
[2020-04-07] MEDS: BUPRENORPHINE/NALOXONE 8/2 MG TAB SL SCH ×2 (10:18→20:52)
--- NOTE | 2020-04-07 15:20 | Psychiatric Progress Note ---
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 The patient also indicates that he has been treated for depression in the past by being prescribed Zoloft. Currently, the focus is on resolving the prominent psychotic features, but in the future with the addition of an antidepressant medication may be indicated, depending upon the patient's progress. (1) Psychosis: 04/06 - stopped adderall xr and adderall ir educated pt about over usage of such medications has tendency to bring out psychotic smyptoms simmilar to his presentation and withdrawal brings out depressive smyptoms added risperdal 0.5mg odt 1 po bid plus 0.5mg odt 0.5mg prn up to twice a day for psychotic symptoms after r/b/a reviewed monitor for primary mood disorders, including MDD or bipolar d/o and treat accordingly family meeting with mother to be set up coordinate with outpt provider, re:suboxone and adderall and psychosis/mood concerns and usage concerns setting up aftercare for outpt psychiatric care and outpt psychotherapy appts mileui therapy and individual and group inpt therapy q15 minutes safety checks for SI MNPR given degree of paranoia and disorganized thinking and command AH fasting sugar and lipids fully normal done on 04/06 adrressed 72 notice, pt indicating considering resinding notice given desire for treatment and given imrpovement of comfort but not ready yet with psychotic symptoms apeparing to impact this assessing need for invol committment hearing given degre of psychotic symtptoms and disorgnaized behaviors and SI and acts of furtherance in past few days if pt still having notable symptoms and does not rescind 72 notice 04/07 -The patient has rescinded his 72-hour notice and is agreeing to remain hospitalized voluntarily. -He notes that he has begun to feel somewhat less depressed and his voices are not as intense, and not as frequent, and he is also feeling more safe. -The patient acknowledges that he has sometimes "overused" and "missed used" buprenorphine and Adderall. He does not seem to be seeking Adderall at this time. -He indicates that he is responding to risperidone, and offers no complaints at risperidone 0.5 mg twice a day. Today, we will increase the dose of risper idone to 1 mg twice a day and titrate further as indicated and tolerated. (2) Substance use disorder: 04/06 maintained suboxone at 8mg 1 bid coordinate with outpt prescribing and usage concerns and psychosis and mood concerns stopped adderall xr and ir and educate about his misuse and CHRIS concerns and how likely a main precipitating factor nicotine replacement (patch 21mg and prn niciotine) or while on unit with aim to see about quitting, pt too psychotic too conduct more detailed tobacco cessation education today 04/07 -The patient does acknowledge a fairly extensive history of substance abuse, including opioid dependence in the form of IV heroin use. He notes that he has been abstinent from heroin for approximately 2 years and is being treated with Suboxone. However, he acknowledges that he periodically misuses Suboxone. He also admits that he sometimes misuses Adderall. -Given the fact that the patient is psychotic, and a history of abusing Adderall, I agree with the plan not to restart Adderall now, and I would recommend that it not be restarted following discharge. -The patient has been educated about the various reasons not to miss use Suboxone, including, but not limited to the fact that misuse may lead to worsening addiction and dismissal from the Suboxone treatment program. Inventory Assets Strengths: expressing insight into paranoia and AH and seeking treatment, expressing fine with ceasing adderall and related medications, safety assisstance given Comand AH with acts of furthererance occurring Needs: outpt psychiatry appointments, clarification of primary mood/psychotic dx's and if ADHD is accurate dx, sobriety from substances and his missue of rx'd psychostimulants Risk Factors Assessment Male: Yes : Yes Health Problems: No Mental Health Diagnoses: Yes Substance Use Disorders: Yes Previous Attempt: Yes Previous Attempt; Highly Lethal: No Previous Psychiatric Hospitalization: Yes Smoker: Yes Protective Factors Assessment Employed: No (seeking employement) Interval History Chief Complaint " I am hearing voices.". Review of Systems Sleep Information Total Hours of Sleep: 8.5 Sleep Comments: pt given vistaril per rn. pt on q15 minute checks Meal Information Percent Meal Consumed - Breakfast: 100 Percent Meal Consumed - Lunch: 100 Percent Meal Consumed - Dinner: 100 Nutrition Comment: pt. allowd to rest Medication Trials Patient says that he thinks he was put on medication in the past, but does not recall the names --with the exception of Zoloft. He does not recall the dose, and says he cannot remember if it or any other psychiatric medication helped or did not help. Subjective Subjective Patient was seen & assessed and interval progress reviewed with treatment team. I met individually with the patient in order to assess his current mental status, evaluate his response to treatment, coordinate any necessary changes in the patient's treatment regimen with the patient, and address issues, questions and concerns that may arise. The patient is not a particularly forthcoming historian, but tells me that he has been depressed for "a long time" (he says that he cannot estimate how long) and that approximately 4 days ago he began hearing voices that he seems to recognize that no one else can hear. He is rather vague about the voices. When asked if it is a man's voice or woman's voice he hears, he says "it is everybody." When asked if he feels that he can identify the source of the voices, he says "it is people I know. People who I thought were friends." But when asked to give a name, he simply repeats "it is so many people. I cannot keep track of it." When asked if he hears the voices inside his head or outside of his head, he said "both." When asked to describe the content, he said "they say all sorts of things." When asked to give an example of something that he had said recently, he said "I will just shit that they say." After failing to get the patient to independently describe the content of the voices, I asked him if he would say that the voices are saying unpleasant are nasty things to him, and he endorsed that very quickly. When asked if they ever say nice things to him he hesitated and then said "sometimes." He also acknowledges that the voices sometimes tell him to physically hurt himself. He tells me that he is continuing to have suicidal thoughts, but is feeling somewhat better, somewhat less depressed, and assures me that he can contract for safety on the unit and will let staff know if he dev elops suicidal intent to act on the unit. A possible precipitating event was that the patient recently lost custody of his 3 minor children from his former marriage. Eventually, the patient clarified that he, himself, did not have custody of the children but, instead, his mother, with whom he lives, had custody, and custody was lost to his former or to her family. The patient said that he does not know why his mother lost custody of the children. 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 Also, it was clear that the patient, his mother, and his 3 children were living in a small house trailer. The patient said "it was big enough, and my mother is in the process of adding onto it so there would be more room. Other possible precipitating factors include the patient's acknowledgment that he has been misusing several of his psychiatric medications, namely buprenorphine and Adderall. The patient works that he has previously been in psychiatric treatment, but then tells me that he cannot remember what his treatment was, nor can he remember if he is ever seen a psychiatrist. He does say that he used to get treatment at [facility]" and eventually told me that it was because of drug abusenamely IV heroin, as well as multiple other chemical substances. 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 Physical Exam Psychiatric Orientation: alert, oriented x 3 and cooperative Apperance: + disheveled Eye Contact: + poor eye contact Motor Behavior: + psychomotor retardation Patient speech is rarely spontaneous and is generally monotonous and somewhat soft. Affect: + constricted affect Mood: + depressed mood Thought Process: + concrete thought process Thought Content: + delusions (Patient states that he believes that his auditory hallucinations are coming from individuals who seek to cause him physical or mental harm. He adds that he believes these voices are coming largely from peop le who had posed as his friends in the past and are now trying to "screw [him] up.") Suicidal Thoughts: + reports suicidal thoughts Homicidal Thoughts: denies homicidal thoughts Hallucinations: + auditory hallucinations (See HPI.); no visual hallucinations, no tactile hallucinations and no gustatory hallucinations The patient is a vague historian. He sometimes claims not to remember something when it seems possible that he may actually remember that which he claims to have forgotten. Estimated Intelligence: + below average estimated intelligence Insight: + poor insight Judgement: + poor judgement Vital Signs (Past 24 Hours) Last Vital Signs Temp 36.7 C 04/07/20 06:51 Pulse 93 H 04/07/20 06:53 Resp 18 04/07/20 06:51 BP 99/62 L 04/07/20 06:53 Pulse Ox 100 04/05/20 18:22 A physical exam was performed in the ER prior to admission to the unit by Dr. Dallas. I accept that physical as sufficient and correct for purpose of this admission. Results & Data ([facility]) Current Inpatient Medications Current Inpatient Medications: Current Inpatient Medications Acetaminophen (Acetaminophen 325 Mg Tab) 650 mg PO Q4H PRN PRN Reason: Headache or Minor Fever Stop: 05/05/20 17:49 Al Hydrox/Mg Hydrox/Simethicone (Aluminum/Magnesium Susp 30 Ml Udc) 30 ml PO Q4H PRN PRN Reason: GI Upset Stop: 05/05/20 17:49 Bismuth Subsalicylate (Bismuth Subsalicylate Per Ml [employer] Charge) 15 ml PO PRN PRN PRN Reason: Loose Stool Stop: 05/05/20 17:49 Buprenorphine/Naloxone (Buprenorphine/Naloxone 8/2 Mg Tab) 1 tab SL BID [facility] Stop: 05/05/20 20:59 Last Admin: 04/07/20 10:18 Dose: 1 tab Documented by: Hydroxyzine HCl (Hydroxyzine Hcl 25 Mg Tab) 50 mg PO HSZ PRN PRN Reason: Insomnia Stop: 05/05/20 17:49 Last Admin: 04/06/20 22:36 Dose: 50 mg Documented by: Hydroxyzine HCl (Hydroxyzine Hcl 25 Mg Tab) 25 mg PO Q4H PRN PRN Reason: Anxiety Stop: 05/05/20 17:49 Magnesium Hydroxide (Magnesium Hydroxide Susp 30 Ml Udc) 30 ml PO DAILY PRN PRN Reason: Constipation Stop: 05/05/20 17:49 Miscellaneous (Remove Nicoderm Patch) 1 ea N/A DAILY@0859 [facility] Stop: 05/06/20 08:58 Last Admin: 04/07/20 10:15 Dose: 1 ea Documented by: Nicotine (Nicotine 21 Mg/24 Hr Tdsy) 21 mg TD QAM [facility] Stop: 05/06/20 08:59 Last Admin: 04/07/20 10:17 Dose: 21 mg Documented by: Nicotine Polacrilex (Nicotine Polacrilex 2 Mg Gum) 1 piece MT PRN PRN PRN Reason: Nicotine Withdrawal Stop: 05/05/20 17:49 Quetiapine Fumarate (Quetiapine Fumarate 25 Mg Tablet) 50 mg PO Q6 PRN PRN Reason: Anxiety/parsons Stop: 05/05/20 17:59 Last Admin: 04/06/20 21:11 Dose: 50 mg Documented by: Risperidone (Risperidone Odt 0.5 Mg Soltab) 0.5 mg PO BID PRN PRN Reason: psychosis Stop: 05/06/20 12:28 Risperidone (Risperidone Odt 0.5 Mg Soltab) 0.5 mg PO BID [facility] Stop: 05/06/20 12:29 Last Admin: 04/07/20 10:17 Dose: 0.5 mg Documented by: Sodium Chloride (Sodium Chloride 0.65% Na Soln 45 Ml ([place])) 1 - 2 sprays NA PRN PRN PRN Reason: Nasal Dryness/Congestion Stop: 05/05/20 17:49 Mental Health & Subst Abuse Tx Therapist Name of Therapist: None Extractor Operator Solvent Process Name of Extractor Operator Solvent Process: None Post Discharge Appointments Primary Care Physician Name Of Family Doctor: Dr. Pena
[2020-04-07] MEDS: risperiDONE 1 MG TABLET PO SCH (20:52)
[2020-04-07] MEDS: QUEtiapine FUMARATE 25 MG TABLET PO PRN (20:56)
[2020-04-08 06:02] LABS: Amphetamine Urine, Confirm 1610 ng/mL (<250); Methamphetamine, Ur Confirm NEGATIVE ng/mL (<250)
[2020-04-08] MEDS: risperiDONE 1 MG TABLET PO SCH ×2 (08:59→20:40)
[2020-04-08] MEDS: BUPRENORPHINE/NALOXONE 8/2 MG TAB SL SCH ×2 (08:59→20:40)
[2020-04-08] MEDS: NICOTINE 21 MG/24 HR TDSY TD SCH (09:02)
--- NOTE | 2020-04-08 13:08 | Psychiatric Progress Note ---
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 The patient also indicates that he has been treated for depression in the past by being prescribed Zoloft. Currently, the focus is on resolving the prominent psychotic features, but in the future with the addition of an antidepressant medication may be indicated, depending upon the patient's progress. (1) Psychosis: 04/06 - stopped adderall xr and adderall ir educated pt about over usage of such medications has tendency to bring out psychotic smyptoms simmilar to his presentation and withdrawal brings out depressive smyptoms added risperdal 0.5mg odt 1 po bid plus 0.5mg odt 0.5mg prn up to twice a day for psychotic symptoms after r/b/a reviewed monitor for primary mood disorders, including MDD or bipolar d/o and treat accordingly family meeting with mother to be set up coordinate with outpt provider, re:suboxone and adderall and psychosis/mood concerns and usage concerns setting up aftercare for outpt psychiatric care and outpt psychotherapy appts mileui therapy and individual and group inpt therapy q15 minutes safety checks for SI MNPR given degree of paranoia and disorganized thinking and command AH fasting sugar and lipids fully normal done on 04/06 adrressed 72 notice, pt indicating considering resinding notice given desire for treatment and given imrpovement of comfort but not ready yet with psychotic symptoms apeparing to impact this assessing need for invol committment hearing given degre of psychotic symtptoms and disorgnaized behaviors and SI and acts of furtherance in past few days if pt still having notable symptoms and does not rescind 72 notice 04/07 -The patient has rescinded his 72-hour notice and is agreeing to remain hospitalized voluntarily. -He notes that he has begun to feel somewhat less depressed and his voices are not as intense, and not as frequent, and he is also feeling more safe. -The patient acknowledges that he has sometimes "overused" and "missed used" buprenorphine and Adderall. He does not seem to be seeking Adderall at this time. -He indicates that he is responding to risperidone, and offers no complaints at risperidone 0.5 mg twice a day. Today, we will increase the dose of risper idone to 1 mg twice a day and titrate further as indicated and tolerated. 04/08 - continue risperdal 1mg po bid as he has ongoing but less AH, add cogentin prn for akathisia "restlessness" he is aware discussed risks of blurry vision, and dry mouth, as well as some tiredness. He is agreeable to this plan, and is aware he can request prn risperdal in the day if distressed by the voices (2) Substance use disorder: 04/06 maintained suboxone at 8mg 1 bid coordinate with outpt prescribing and usage concerns and psychosis and mood concerns stopped adderall xr and ir and educate about his misuse and CHRIS concerns and how likely a main precipitating factor nicotine replacement (patch 21mg and prn niciotine) or while on unit with aim to see about quitting, pt too psychotic too conduct more detailed tobacco cessation education today 04/07 -The patient does acknowledge a fairly extensive history of substance abuse, including opioid dependence in the form of IV heroin use. He notes that he has been abstinent from heroin for approximately 2 years and is being treated with Suboxone. However, he acknowledges that he periodically misuses Suboxone. He also admits that he sometimes misuses Adderall. -Given the fact that the patient is psychotic, and a history of abusing Adderall, I agree with the plan not to restart Adderall now, and I would recom mend that it not be restarted following discharge. -The patient has been educated about the various reasons not to miss use Suboxone, including, but not limited to the fact that misuse may lead to wor sening addiction and dismissal from the Suboxone treatment program. Inventory Assets Strengths: expressing insight into paranoia and AH and seeking treatment, expressing fine with ceasing adderall and related medications, safety assisstance given Comand AH with acts of furthererance occurring Needs: outpt psychiatry appointments, clarification of primary mood/psychotic dx's and if ADHD is accurate dx, sobriety from substances and his missue of rx'd psychostimulants Risk Factors Assessment Male: Yes : Yes Health Problems: No Mental Health Diagnoses: Yes Substance Use Disorders: Yes Previous Attempt: Yes Previous Attempt; Highly Lethal: No Previous Psychiatric Hospitalization: Yes Smoker: Yes Protective Factors Assessment Employed: No (seeking employement) Interval History Identifying Information AYDEE BROWN is a 25-year-old Male who currently lives alone in [place], [place], has a history of heroin use disorder treated with suboxone and reported ADHD treated with Adderall xr and Adderall ir, and self reported depressive symptoms and was admitted on 04/05/20 17:50 on a 302 involuntary commitment for psychotic symptoms with command Auditory Hallucinations telling him to kill himself with 2 recent behaviors involving non lethal suicidal attempts. Chief Complaint "I am a little bit better". Review of Systems Sleep Information Total Hours of Sleep: 7.75 Sleep Comments: pt given vistaril per rn. pt on q15 minute checks Meal Information Percent Meal Consumed - Breakfast: 100 Percent Meal Consumed - Lunch: 100 Percent Meal Consumed - Dinner: 80 Nutrition Comment: pt. allowd to rest Medication Trials Patient says that he thinks he was put on medication in the past, but does not recall the names --with the exception of Zoloft. He does not recall the dose, and says he cannot remember if it or any other psychiatric medication helped or did not help. Subjective Subjective Patient was seen & assessed and interval progress reviewed with nursing and social work. Per staff the patient is still reporting AH but less, still remains vague as he shares his history with differing details between providers, e.g. was he kicked out of his mother's home, or simply does not want to return there. He did agree to a referral to [place] for aftercare due to substance use. He rated his mood today as a 2.5/10 (10 best, 0 worst) and stated his word is "broken." [facility] patient this afternoon, he was taking a nap. He roxy to verbal prompting and was engaged and cooperative. He states the AH are ongoing but less "hard to tell what is in my head and what is not....tell me to contact my mom" denies command hallucinations or paranoia. He states his mood is "so-so" he feels improved having slept. He states he feels less tired today than prior days even though he is still napping in the day. He denies EPS, or dystonia to Risperdal 1mg po bid (increased last evening), but when asked does feel a little restless. He dose state he feels anxious, "anxious thoughts" but has trouble articulating what he may be thinking or anxious about. He denies physical concerns. Medication Trials Patient says that he thinks he was put on medication in the past, but does not recall the names --with the exception of Zoloft. He does not recall the dose, and says he cannot remember if it or any other psychiatric medication helped or did not help. Physical Exam Psychiatric Orientation: alert and oriented x 3 Apperance: + disheveled (sweat pants and t-shirt wtih disheveled hair, [employer]NT[employer] tatoos on arms and neck) Eye Contact: good eye contact Motor Behavior: no abnormal motor movements Speech: normal rate/rhythm/volume of speech (tired tone) Affect: + blunted affect "so-so" Thought Process: linear/logical thought process Thought Content: reality based without delusions vague in concepts but reports feeling anxious, antsy, ongoing AH denies Command hallucinations denies SI Hallucinations: + auditory hallucinations Cognition: recent memory grossly intact and attention grossly intact Estimated Intelligence: average estimated intelligence Insight: + limited insight Judgement: + limited judgement Vital Signs (Past 24 Hours) Last Vital Signs Temp 36.7 C 04/08/20 06:45 Pulse 97 H 04/08/20 06:46 Resp 16 04/08/20 06:45 BP 103/67 04/08/20 06:46 Pulse Ox 100 04/05/20 18:22 A physical exam was performed in the ER prior to admission to the unit by Dr. Dallas. I accept that physical as sufficient and correct for purpose of this admission. Results & Data ([facility]) Laboratory Results Laboratory Results - last 24 hr 04/05/20 14:30 U Amphetamines Confirm 1610 H U Methamphetamin Confrm NEGATIVE Drug Screen Comment SEE NOTE Current Inpatient Medications Current Inpatient Medications: Current Inpatient Medications Acetaminophen (Acetaminophen 325 Mg Tab) 650 mg PO Q4H PRN PRN Reason: Headache or Minor Fever Stop: 10/09/20 17:49 Al Hydrox/Mg Hydrox/Simethicone (Aluminum/Magnesium Susp 30 Ml Udc) 30 ml PO Q4H PRN PRN Reason: GI Upset Stop: 05/05/20 17:49 Bismuth Subsalicylate (Bismuth Subsalicylate Per Ml [facility] Charge) 15 ml PO PRN PRN PRN Reason: Loose Stool Stop: 05/05/20 17:49 Buprenorphine/Naloxone (Buprenorphine/Naloxone 8/2 Mg Tab) 1 tab SL BID [facility] Stop: 05/05/20 20:59 Last Admin: 04/08/20 08:59 Dose: 1 tab Documented by: Hydroxyzine HCl (Hydroxyzine Hcl 25 Mg Tab) 50 mg PO HSZ PRN PRN Reason: Insomnia Stop: 05/05/20 17:49 Last Admin: 04/06/20 22:36 Dose: 50 mg Documented by: Hydroxyzine HCl (Hydroxyzine Hcl 25 Mg Tab) 25 mg PO Q4H PRN PRN Reason: Anxiety Stop: 05/05/20 17:49 Magnesium Hydroxide (Magnesium Hydroxide Susp 30 Ml Udc) 30 ml PO DAILY PRN PRN Reason: Constipation Stop: 05/05/20 17:49 Miscellaneous (Remove Nicoderm Patch) 1 ea N/A DAILY@0859 [facility] Stop: 05/06/20 08:58 Last Admin: 04/08/20 09:02 Dose: 1 ea Documented by: Nicotine (Nicotine 21 Mg/24 Hr Tdsy) 21 mg TD QAM [facility] Stop: 05/06/20 08:59 Last Admin: 04/08/20 09:02 Dose: 21 mg Documented by: Nicotine Polacrilex (Nicotine Polacrilex 2 Mg Gum) 1 piece MT PRN PRN PRN Reason: Nicotine Withdrawal Stop: 05/05/20 17:49 Quetiapine Fumarate (Quetiapine Fumarate 25 Mg Tablet) 50 mg PO Q6 PRN PRN Reason: Anxiety/parsons Stop: 05/05/20 17:59 Last Admin: 04/07/20 20:56 Dose: 50 mg Documented by: Risperidone (Risperidone Odt 0.5 Mg Soltab) 0.5 mg PO BID PRN PRN Reason: psychosis Stop: 05/06/20 12:28 Risperidone (Risperidone 1 Mg Tablet) 1 mg PO BID [facility] Stop: 05/07/20 20:59 Last Admin: 04/08/20 08:59 Dose: 1 mg Documented by: Sodium Chloride (Sodium Chloride 0.65% Na Soln 45 Ml ([place])) 1 - 2 sprays NA PRN PRN PRN Reason: Nasal Dryness/Congestion Stop: 05/05/20 17:49 Mental Health & Subst Abuse Tx Therapist Name of Therapist: None Wallpaperer Helper Name of Wallpaperer Helper: None Post Discharge Appointments Primary Care Physician Name Of Family Doctor: Dr. Pena
[2020-04-08] MEDS ORDERED: BENZTROPINE MESYLATE 0.5 MG TAB PO PRN (13:16)
[2020-04-08] MEDS: MAGNESIUM HYDROXIDE SUSP 30 ML UDC PO PRN (18:10)
[2020-04-08] MEDS: QUEtiapine FUMARATE 25 MG TABLET PO PRN (18:43)
[2020-04-08] MEDS: hydrOXYzine HCl 25 MG TAB PO PRN (21:17)
[2020-04-09] MEDS: BUPRENORPHINE/NALOXONE 8/2 MG TAB SL SCH ×2 (09:40→20:31)
[2020-04-09] MEDS: NICOTINE 21 MG/24 HR TDSY TD SCH (09:40)
[2020-04-09] MEDS: risperiDONE 1 MG TABLET PO SCH ×2 (09:40→20:29)
[2020-04-09] MEDS: MAGNESIUM HYDROXIDE SUSP 30 ML UDC PO PRN (10:56)
--- NOTE | 2020-04-09 13:40 | Psychiatric Progress Note ---
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 The patient also indicates that he has been treated for depression in the past by being prescribed Zoloft. Currently, the focus is on resolving the prominent psychotic features. 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 Will add antidepressant medication. (1) Psychosis: 04/06 - stopped adderall xr and adderall ir educated pt about over usage of such medications has tendency to bring out psychotic smyptoms simmilar to his presentation and withdrawal brings out depressive smyptoms added risperdal 0.5mg odt 1 po bid plus 0.5mg odt 0.5mg prn up to twice a day for psychotic symptoms after r/b/a reviewed monitor for primary mood disorders, including MDD or bipolar d/o and treat accordingly family meeting with mother to be set up coordinate with outpt provider, re:suboxone and adderall and psychosis/mood concerns and usage concerns setting up aftercare for outpt psychiatric care and outpt psychotherapy appts mileui therapy and individual and group inpt therapy q15 minutes safety checks for SI MNPR given degree of paranoia and disorganized thinking and command AH fasting sugar and lipids fully normal done on 04/06 adrressed 72 notice, pt indicating considering resinding notice given desire for treatment and given imrpovement of comfort but not ready yet with psychotic symptoms apeparing to impact this assessing need for invol committment hearing given degre of psychotic symtptoms and disorgnaized behaviors and SI and acts of furtherance in past few days if pt still having notable symptoms and does not rescind 72 notice 04/07 -The patient has rescinded his 72-hour notice and is agreeing to remain hospitalized voluntarily. -He notes that he has begun to feel somewhat less depressed and his voices are not as intense, and not as frequent, and he is also feeling more safe. -The patient acknowledges that he has sometimes "overused" and "missed used" buprenorphine and Adderall. He does not seem to be seeking Adderall at this time. -He indicates that he is responding to risperidone, and offers no complaints at risperidone 0.5 mg twice a day. Today, we will increase the dose of risperidone to 1 mg twice a day and titrate further as indicated and tolerated. 04/08 - continue risperdal 1mg po bid as he has ongoing but less AH, add cogentin prn for akathisia "restlessness" he is aware discussed risks of blurry vision, and dry mouth, as well as some tiredness. He is agreeable to this plan, and is aware he can request prn risperdal in the day if distressed by the voices 04/09 - will continue risperdal 1mg po bid, has ongoing voices, but differential given persistance this many days away from stimulant is not either prolonged sequelae of cumulative methamphetamine/amphetamine use causing longer term brain problems, OR MDD wtih psychotic features. Will add remeron to traget low mood, and there is some reserach evidence that remeron can help those with amphetamine use disorders. DIsucssed risk of sedation and weight gain with remeron, and alongside risperdal will watch closely. Monitor mood stability given cannot fully r/o BPAD given vague history. Patient agrees to trial this meedication. (2) Substance use disorder: 04/06 maintained suboxone at 8mg 1 bid coordinate with outpt prescribing and usage concerns and psychosis and mood concerns stopped adderall xr and ir and educate about his misuse and CHRIS concerns and how likely a main precipitating factor nicotine replacement (patch 21mg and prn niciotine) or while on unit with aim to see about quitting, pt too psychotic too conduct more detailed tobacco cessation education today 04/07 -The patient does acknowledge a fairly extensive history of substance abuse, including opioid dependence in the form of IV heroin use. He notes that he has been abstinent from heroin for approximately 2 years and is being treated with Suboxone. However, he acknowledges that he periodically misuses Suboxone. He also admits that he sometimes misuses Adderall. -Given the fact that the patient is psychotic, and a history of abusing Adderall, I agree with the plan not to restart Adderall now, and I would recommend that it not be restarted following discharge. -The patient has been educated about the various reasons not to miss use Suboxone, including, but not limited to the fact that misuse may lead to worsening addiction and dismissal from the Suboxone treatment program. Inventory Assets Strengths: expressing insight into paranoia and AH and seeking treatment, expressing fine with ceasing adderall and related medications, safety assisstance given Comand AH with acts of furthererance occurring Needs: outpt psychiatry appointments, clarification of primary mood/psychotic dx's and if ADHD is accurate dx, sobriety from substances and his missue of rx'd psychostimulants Risk Factors Assessment Male: Yes : Yes Health Problems: No Mental Health Diagnoses: Yes Substance Use Disorders: Yes Previous Attempt: Yes Previous Attempt; Highly Lethal: No Previous Psychiatric Hospitalization: Yes Smoker: Yes Protective Factors Assessment Employed: No (seeking employement) Interval History Identifying Information AYDEE BROWN is a 25-year-old Male who currently lives alone in [place], [place], has a history of heroin use disorder treated with suboxone and reported ADHD treated with Adderall xr and Adderall ir, and self reported depressive symptoms and was admitted on 04/05/20 17:50 on a 302 involuntary commitment for psychotic symptoms with command Auditory Hallucinations telling him to kill himself with 2 recent behaviors involving non lethal suicidal attempts. Chief Complaint "I don't know". Review of Systems Sleep Information Total Hours of Sleep: 7.75 Sleep Comments: pt given vistaril per rn. pt on q15 minute checks Meal Information Percent Meal Consumed - Breakfast: 100 Percent Meal Consumed - Lunch: 100 Percent Meal Consumed - Dinner: 100 Nutrition Comment: pt. allowd to rest Medication Trials Patient says that he thinks he was put on medication in the past, but does not recall the names --with the exception of Zoloft. He does not recall the dose, and says he cannot remember if it or any other psychiatric medication helped or did not help. Subjective Subjective Patient was seen & assessed and interval progress reviewed with nursing and social work. patient is out of his room going to groups put [facility] at 6/10. He did get seroquel for anxiety and racing thoughts last pm, and then vistaril at hs, slept 7.75hours overnight, seemed "more with it this AM" he initially was declining a family meeting. pending referral to [facility] for dual diagnosis aftercare. Met with patient this afternoon he was resting in his bed, awoke to verbal stimuli. He seemed cooperative but was very vauge and non-specific in his answers. Provider asked him how he was feeling he noted "not good." Asked him to share more he said "I don't know" Provider gave a menu of options - "feel physically unwell, feeling depressed, sad, numb, irritable, content" he notes "depressed" denies SI or safety concerns. Asked him what was on his mind he stated "I don't know" Asked him about the voices and he stated he was still hearing them, but could not identify what they were saying or if it was a male or female, "I don't know....It's just voices out of my head." He noted in the past when he stopped using adderall and suboxone the voices would go away and they are not this time. He is indifferent to taking medication "I am just doing what you tell me" He denies EPS, dystonia, akathisia, denies feeling tired (despite laying down most of the day.) He denies childhood history of concerns with learning, and "I got good grades in school." Denies learning support or repeating classes. Had detentions but never expelled. "No trouble other than being bullied." States he dropped out 2 weeks prior ot graduation, and then got his GED in when in [place], and then got into [employer] and took some classes "just stopped going." He denies physical concerns at this time. Medication Trials Patient says that he thinks he was put on medication in the past, but does not recall the names --with the exception of Zoloft. He does not recall the dose, and says he cannot remember if it or any other psychiatric medication helped or did not help. Physical Exam Psychiatric Orientation: alert and oriented x 3 Apperance: appropriately dressed Eye Contact: good eye contact Motor Behavior: steady gait and station and no abnormal motor movements minimal spontaneous speech, but answers with regular rate, rythym volume and tone but short answers with vague content Affect: + blunted affect Mood: + depressed mood Thought Process: clear/coherent thought process but vague in content states he hears voices, but seems to have difficulty describing his thoughts and feelings and is very vague when answering questions. When asked he does state it is hard for him to describe his thoughts. Suicidal Thoughts: denies suicidal thoughts Homicidal Thoughts: denies homicidal thoughts Hallucinations: + auditory hallucinations Cognition: recent memory grossly intact and attention grossly intact Estimated Intelligence: consistent with education level Insight: + fair insight Judgement: + fair judgement Vital Signs (Past 24 Hours) Last Vital Signs Temp 36.7 C 04/09/20 06:55 Pulse 76 04/09/20 06:57 Resp 16 04/09/20 06:55 BP 94/59 L 04/09/20 06:57 Pulse Ox 100 04/05/20 18:22 A physical exam was performed in the ER prior to admission to the unit by Dr. Dallas. I accept that physical as sufficient and correct for purpose of this admission. Results & Data ([facility]) Current Inpatient Medications Current Inpatient Medications: Current Inpatient Medications Acetaminophen (Acetaminophen 325 Mg Tab) 650 mg PO Q4H PRN PRN Reason: Headache or Minor Fever Stop: 05/05/20 17:49 Al Hydrox/Mg Hydrox/Simethicone (Aluminum/Magnesium Susp 30 Ml Udc) 30 ml PO Q4H PRN PRN Reason: GI Upset Stop: 05/05/20 17:49 Benztropine Mesylate (Benztropine Mesylate 0.5 Mg Tab) 0.5 mg PO Q6H PRN PRN Reason: akathisi/restelessness Stop: 05/08/20 13:15 Bismuth Subsalicylate (Bismuth Subsalicylate Per Ml Omnicell Charge) 15 ml PO PRN PRN PRN Reason: Loose Stool Stop: 05/05/20 17:49 Buprenorphine/Naloxone (Buprenorphine/Naloxone 8/2 Mg Tab) 1 tab SL BID DIOMEDES Stop: 05/05/20 20:59 Last Admin: 04/09/20 09:40 Dose: 1 tab Documented by: Hydroxyzine HCl (Hydroxyzine Hcl 25 Mg Tab) 50 mg PO HSZ PRN PRN Reason: Insomnia Stop: 05/05/20 17:49 Last Admin: 04/08/20 21:17 Dose: 50 mg Documented by: Hydroxyzine HCl (Hydroxyzine Hcl 25 Mg Tab) 25 mg PO Q4H PRN PRN Reason: Anxiety Stop: 05/05/20 17:49 Magnesium Hydroxide (Magnesium Hydroxide Susp 30 Ml Udc) 30 ml PO DAILY PRN PRN Reason: Constipation Stop: 05/05/20 17:49 Last Admin: 04/09/20 10:56 Dose: 30 ml Documented by: Miscellaneous (Remove Nicoderm Patch) 1 ea N/A DAILY@[id number] [facility] Stop: 05/06/20 08:58 Last Admin: 04/09/20 09:40 Dose: 1 ea Documented by: Nicotine (Nicotine 21 Mg/24 Hr Tdsy) 21 mg TD QAM [facility] Stop: 05/06/20 08:59 Last Admin: 04/09/20 09:40 Dose: 21 mg Documented by: Nicotine Polacrilex (Nicotine Polacrilex 2 Mg Gum) 1 piece MT PRN PRN PRN Reason: Nicotine Withdrawal Stop: 05/05/20 17:49 Quetiapine Fumarate (Quetiapine Fumarate 25 Mg Tablet) 50 mg PO Q6 PRN PRN Reason: Anxiety/parsons Stop: 05/05/20 17:59 Last Admin: 04/08/20 18:43 Dose: 50 mg Documented by: Risperidone (Risperidone Odt 0.5 Mg Soltab) 0.5 mg PO BID PRN PRN Reason: psychosis Stop: 05/06/20 12:28 Risperidone (Risperidone 1 Mg Tablet) 1 mg PO BID [facility] Stop: 05/07/20 20:59 Last Admin: 04/09/20 09:40 Dose: 1 mg Documented by: Sodium Chloride (Sodium Chloride 0.65% Na Soln 45 Ml (Jenera)) 1 - 2 sprays NA PRN PRN PRN Reason: Nasal Dryness/Congestion Stop: 05/05/20 17:49 Mental Health & Subst Abuse Tx Therapist Name of Therapist: None Healthcare Insurance Sales Agent Name of Healthcare Insurance Sales Agent: None Post Discharge Appointments Primary Care Physician Name Of Family Doctor: Dr. Pena
[2020-04-09] MEDS: hydrOXYzine HCl 25 MG TAB PO PRN (21:03)
[2020-04-09] MEDS ORDERED: MIRTAZAPINE TAB 15 MG TAB PO SCH (22:00)
[2020-04-10] MEDS: risperiDONE 1 MG TABLET PO SCH (08:55)
[2020-04-10] MEDS: BUPRENORPHINE/NALOXONE 8/2 MG TAB SL SCH (08:56)
[2020-04-10] MEDS: NICOTINE 21 MG/24 HR TDSY TD SCH (09:01)
--- NOTE | 2020-04-10 11:02 | Discharge Summary ---
Date of Service April 10, 2020 History of Present Illness Pt is a 25 yr old male reporting depressive symptoms for extended time now who for hte past 5 days have been having derogatory Ah and command AH to kill himself while not being able to sleep at night. Pt endorsed taking about 4 extra pills of Suboxone 2 days ago as a suicide attempt and a day separately trying to cut his wrist in suicidal attempt with a butter knife (without laceration occurring). He denied having AH in the past. He is rx'd Suboxone at 8mg po bid and Adderall ir at 30mg bid wit cheney recent script of Adderall xr 30mg 1 po qday as well rx'd. Pt indicates he takes Adderall ir up to 4 times a day, with 1-2 tabs per dose and it appears that he tends to take 4-6 pills, and perhaps sometimes more in a day. He indicated only sometimes takes Adderall xr and takes it 1 pill up to twice a day it seems. It seemed that he sometimes has taken both forms of Adderall in the same day but I am not 100% certain of this, with pt being vague in sharing how he takes the medication and database report writer exploring this in depth. Pt can take the Adderall dose even at night and it has him stay up overnight when does so. He denied any times of manic symptoms separate from notable Adderall usage being involved. He indicated that he is and tends to be paranoid in his thinking and that his paranoid thinking is brought out by the Adderall usage. He denied h/o of Ah prior to about 5 days ago. Pt is fine with stopping Adderall medications as appears to be realizing that his usage of it is precipitating or at least aggravating his above concerns. He endorsed tendency to sleep for days and to have poor motivation and follow through and depressed mood. His mood has worsened further in the past 2 weeks tied to his losing custody of his 3 children, with them now living with their mother in [place]. Pt is missing having his children. He denied knowing why the child custody arrangement was recently changed by the bit gatherer. He reported poor appetite lately and limited eating lately with mother bringing him fast food about 2 days ago as last real meal and denied eating breakfast this morning and denied appetite during this assessment ( occurred rather late morning). He reported sleeping well last night and that his AH is ongoing but less intense this morning then recent days but still derogatory and with command AH to end his life and has him thinking of various ways that can do so. He denied h/o HI or h/o physical aggressive behaviors. He denied other recent self injuries behaviors.He takes Suboxone for history of IV heroin usage with denying any usage of that or other opiates during the past 1 1/2 years on Suboxone. He endorsed taking Suboxone 8mg 1-2 times a day (rx'd at 8mg BID). Both his Suboxone and his Adderall xr/ir medications are rx'd by Dr. Pena. He was using cannabis quite regularly but last used 2 months ago and ceased usage out of fear of losing his controlled medications if determined on tox screen. He is open to seeing a psychiatrist. He indicates the Adderall scripts were rx'd for ADHD but when inquired about what lead to the ADHD dx he indicated "I don't know" Pt exhibited some disorganization in his thought process and was a bit hard to hear his speech with his concentration seeming impaired and with some paranoid thinking noted. Smokes cigs 1 ppd. past h/o various substance usage over the years but denied usage of any other substances in over 1 1/2 years. Physical Exam Psychiatric Orientation: alert, oriented x 3 and cooperative Apperance: appropriately dressed, appropriately groomed and appeared stated age Eye Contact: good eye contact Motor Behavior: steady gait and station and no abnormal motor movements Speech: normal rate/rhythm/volume of speech Affect: + anxious affect (appearing somewhat nervous) and + blunted affect (appearing subdued, but not overtly depressed) Mood: no depressed mood ("Feeling good. A lot better") Thought Process: goal directed thought process, clear/coherent thought process and thought association intact Thought Content: reality based without delusions; not paranoid, no hopelessness and no worthlessness Suicidal Thoughts: denies suicidal thoughts, denies suicidal plan and denies suicidal intent Homicidal Thoughts: denies homicidal thoughts Hallucinations: no auditory hallucinations (denying voices or intrusive thoughts in several days) and no visual hallucinations Cognition: attention grossly intact and language grossly intact Insight: + fair insight Judgement: + fair judgement Vital Signs (Past 24 Hours) Last Vital Signs Temp 36.6 C 04/10/20 06:53 Pulse 103 H 04/10/20 06:53 Resp 18 04/10/20 06:53 BP 118/74 04/10/20 06:53 Pulse Ox 100 04/05/20 18:22 . Principal Diagnosis - Psychosis, NOS (r/o substance-induced psychosis vs. depressive disorder with psychotic features vs. bipolar disorder). - Substance use disorder Psychiatric Data 25-year-old male admitted voluntarily for inpatient psychiatric treatment on 04/05/2020 after presenting to the ED with reported command auditory hallucinations to kill himself and several recent significant stressors. Pt did admit to misuse of his prescription for Adderall, which was held on admission due to concern for substance-induced psychosis. In addition to the command auditory hallucinations and concern for harm to self, the patient did admit to two perceived suicide attempts - taking 4 extra doses of Suboxone and cutting himself with a butter knife. Pt admitted that recent stressors include job loss and changes to the custody agreement for his 3 children. Pt does have a history of significant substance abuse (specifically heroin and meth). Pt did sign a 72-hour notice requesting to leave treatment rather rapidly after his admission. He did ultimately rescind his notice after further discussion with staff regarding his treatment plan. During his admission, the patient was able to discuss medication options with clinical staff and agreed to initiation of risperidone to target psychosis and auditory hallucinations. Dose was titrated to 1mg BID and mirtazapine was initiated due to consistent reports of depressed mood. Working diagnosis continued to be psychosis, NOS - with attempts to gather collateral information to rule out substance-induced psychosis, verus depressive disorder with psychotic features, versus bipolar disorder. At the time of discharge consideration, patient had been denying SI and auditory hallucinations more consistently and was admitting to feeling better equipped to manage this concerns in the future. His mother was invited to participate in a family meeting, and was permitting the patient to return to live with her. She was agreeable with discharge plan, assisting with medication management at home, and was going to be providing transportation. Pt did complete a written safety plan and was able to verbalize several new, but effective, coping strategies. Pt accepted referrals for outpatient therapy and medication management at [facility]. Pt made aware that [facility] will follow-up with him to schedule these appointments. Pt informed to call their office or call our unit if no correspondence. Pt also agreeable with referral to [facility] for case management services. Based on review of patient's case and their current presentation, risk of harm to self or others is no longer perceived to be acute. Management of symptoms on an outpatient basis seems the most appropriate and least restrictive setting. Pt seems appropriate for discharge with recommendation for consistent follow-up with outpatient psychiatric prescriber, therapist, and pillowcase cleaner. Pt verbalized understanding of discharge plan reviewed and is agreeable with plan to be discharged home with mother today. Day of Discharge Assessment Patient's case was reviewed and discussed during treatment team. Staff report the patient continued to report improvement in the presence of auditory hallucinations over the course of his admission. A family meeting was scheduled with his mother for this morning. Pt was agreeable to aftercare referrals for psychiatric treatment, and referral was faxed last week - repeated attempts to follow-up to confirm appointments. Pt rated his mood an 8/10 last evening, and reportedly admitted to feeling ready for discharge today. Pt was seen today to assess readiness for discharge. Pt states "I'm feeling good. A lot better." Pt attributes this improvement in mood to his current medication regimen, but also admits "I'm sure I was also using way too much Adderall." Pt was reminded of our recommendation that he remain off this medication. Pt reports significant improvement in mood and states he has not experienced auditory hallucinations in ~2 days. We reviewed indications to discuss his medication regimen with his outpatient provider, which included return of auditory hallucinations, paranoia/hypervigilance, or safety concerns/SI. Pt reports willingness to continue to follow-up with outpatient psychiatric treatment. He denies SI and reports feeling safe and ready for discharge. He was able to verbalize and review aspects of his safety plan with this provider and did state "If I ever started feeling that way again, I would come right back here, no questions." Case was again reviewed following the family meeting with his mot her. Mother reportedly verbalized willingness for patient to live with her and was agreeable with discharge today. She reports plan to pick patient up this evening. Pt denied other needs prior to discharge and reports belief that he has achieved his treatment goals. This provider did call Dr. Pena's office to inform staff of misuse of Adderall, and sharing that the medication was to be stopped on discharge from our unit. Encouraged return call to our unit regarding any questions. ROS: Constitutional: denied Cardiovascular: denied Respiratory: denied Gastrointestinal: denied Neurological: denied Psychiatric: denies symptoms other than stated above Total of at least 10 systems reviewed, pertinent positives as above and in HPI. Transition of Care Transition Of Care Record: was reviewed with the patient Advance Directives Advance Directives Information Provided: Yes Advance Directives: No Mental Health Advance Directive: No Advance Directives on File: No Living Will: No Power of Anatomic Pathologist: No Advance Directives Reason:: Declines as Mental Health Visit. Risk Factors Assessment Presenting risk factors reviewed on discharge. Precipitating stressors mitigated by: admission for inpatient psychiatric observation and treatment, initiation of medications to target presenting symptoms, attendance of therapeutic treatment groups, development of healthy and effective coping strategies, involvement of outpatient supports, completion of a safety plan, confirmation of extra medications being secured, confirmation of guns and weapons being secured, discussion regarding substance abuse and effects on mental health diagnoses, and education on diagnoses. Pt has demonstrated improvement in condition with regard to improvement in mood, display of more organized thought process, resolution of SI, reported resolution of hallucina tions, and education regarding substance abuse. Mother participated in family meeting, and reported feeling comfortable with patient returning home to live with her. At this time, patient is requesting discharge and is no longer considered to be at acute risk of harm to himself or others. Pt will be discharged with recommendation for ongoing outpatient psychiatric treatment. Male: Yes : Yes Health Problems: No Mental Health Diagnoses: Yes Substance Use Disorders: Yes Previous Attempt: Yes Previous Attempt; Highly Lethal: No Previous Psychiatric Hospitalization: Yes Smoker: Yes Protective Factors Assessment Employed: No (seeking employement) Tobacco Cessation at Discharge Tobacco Cessation Medication Prescribed at Discharge: Offered & Prescribed Practical counseling provided including: developing coping skills and providing basic information about quitting Tobacco Cessation Outpatient Followup: Outpatient referral made to ([facility] - psychiatric provider and individual therapist ) Total Time Total Time Spent: Greater Than 30 Minutes Total Time Includes: Examination of the patient, Discharge Planning, Medication Reconciliation and Communication with other providers Discharge Data Lab Results 04/05/20 04/05/20 04/05/20 14:30 14:30 14:30 WBC RBC Hgb Hct MCV MCH MCHC RDW Std Deviation RDW Coeff of Nguyen Plt Count MPV Immature Gran % (Auto) Neut % (Auto) Lymph % (Auto) [place] % (Auto) Eos % (Auto) Baso % (Auto) Neut # (Auto) Lymph # (Auto) [place] # (Auto) Eos # (Auto) Baso # (Auto) Immature Gran # (Auto) Sodium Potassium Chloride Carbon Dioxide Anion Gap BUN Creatinine Est Cr Clr Drug Dosing Est GFR ( Amer) Est GFR (Non-Af Amer) BUN/Creatinine Ratio Glucose Fasting Glucose Calcium Total Bilirubin AST ALT Alkaline Phosphatase Total Protein Albumin Globulin Albumin/Globulin Ratio Triglycerides Cholesterol LDL Cholesterol, Calc VLDL Cholesterol, Calc HDL Cholesterol Cholesterol/HDL Ratio TSH Urine Color Dark Yellow Urine Appearance Clear Urine pH 6.5 Ur Specific [place] 1.032 H Urine Protein Negative Urine Glucose (UA) Negative Urine Ketones Trace H Urine Blood Negative Urine Nitrite Negative Urine Bilirubin Negative Urine Urobilinogen Positive H Ur Leukocyte Esterase Trace H Urine WBC (Auto) 0 Urine RBC (Auto) 0-4 U Hyaline Cast (Auto) 1-5 U Epithel Cells (Auto) 0-5 Urine Bacteria (Auto) Negative Salicylates Urine Opiates Screen Neg Ur Methadone, Qual Neg Acetaminophen Urine Barbiturates Neg Ur Phencyclidine (PCP) Neg U Amphetamines Confirm 1610 H U Amphetamin/Meth Scrn Pos H U Methamphetamin Confrm NEGATIVE MDMA (Ecstasy) Screen Neg U Benzodiazepines Scrn Neg Ur Cocaine Metabolite Neg U Marijuana (THC) Screen Neg Drug Screen Comment SEE NOTE Ethyl Alcohol mg/dL 04/05/20 04/05/20 04/05/20 14:42 14:42 14:42 WBC 7.55 RBC 4.81 Hgb 15.8 Hct 44.8 MCV 93.1 MCH 32.8 MCHC 35.3 RDW Std Deviation 40.1 RDW Coeff of Nguyen 11.8 Plt Count 332 MPV 9.8 Immature Gran % (Auto) 0.1 Neut % (Auto) 69.6 Lymph % (Auto) 24.6 [place] % (Auto) 4.5 Eos % (Auto) 0.9 Baso % (Auto) 0.3 Neut # (Auto) 5.25 Lymph # (Auto) 1.86 [place] # (Auto) 0.34 Eos # (Auto) 0.07 Baso # (Auto) 0.02 Immature Gran # (Auto) 0.01 Sodium 138 Potassium 3.9 Chloride 104 Carbon Dioxide 28 Anion Gap 6.0 BUN 13 Creatinine 1.16 Est Cr Clr Drug Dosing 123.9 Est GFR ( Amer) 99.5 Est GFR (Non-Af Amer) 85.8 BUN/Creatinine Ratio 11.6 Glucose 112 H Fasting Glucose Calcium 9.2 Total Bilirubin 0.7 AST 50 H ALT 117 H Alkaline Phosphatase 68 Total Protein 8.3 H Albumin 4.2 Globulin 4.1 H Albumin/Globulin Ratio 1.0 Triglycerides Cholesterol LDL Cholesterol, Calc VLDL Cholesterol, Calc HDL Cholesterol Cholesterol/HDL Ratio TSH 0.849 Urine Color Urine Appearance Urine pH Ur Specific [place] Urine Protein Urine Glucose (UA) Urine Ketones Urine Blood Urine Nitrite Urine Bilirubin Urine Urobilinogen Ur Leukocyte Esterase Urine WBC (Auto) Urine RBC (Auto) U Hyaline Cast (Auto) U Epithel Cells (Auto) Urine Bacteria (Auto) Salicylates 2.4 L Urine Opiates Screen Ur Methadone, Qual Acetaminophen < 2 L Urine Barbiturates Ur Phencyclidine (PCP) U Amphetamines Confirm U Amphetamin/Meth Scrn U Methamphetamin Confrm MDMA (Ecstasy) Screen U Benzodiazepines Scrn Ur Cocaine Metabolite U Marijuana (THC) Screen Drug Screen Comment Ethyl Alcohol mg/dL 04/05/20 04/06/20 14:42 07:33 WBC RBC Hgb Hct MCV MCH MCHC RDW Std Deviation RDW Coeff of Nguyen Plt Count MPV Immature Gran % (Auto) Neut % (Auto) Lymph % (Auto) [place] % (Auto) Eos % (Auto) Baso % (Auto) Neut # (Auto) Lymph # (Auto) [place] # (Auto) Eos # (Auto) Baso # (Auto) Immature Gran # (Auto) Sodium Potassium Chloride Carbon Dioxide Anion Gap BUN Creatinine Est Cr Clr Drug Dosing Est GFR ( Amer) Est GFR (Non-Af Amer) BUN/Creatinine Ratio Glucose Fasting Glucose 88 Calcium Total Bilirubin AST ALT Alkaline Phosphatase Total Protein Albumin Globulin Albumin/Globulin Ratio Triglycerides 114 Cholesterol 158 LDL Cholesterol, Calc 85 VLDL Cholesterol, Calc 23 HDL Cholesterol 50 Cholesterol/HDL Ratio 3 TSH Urine Color Urine Appearance Urine pH Ur Specific [place] Urine Protein Urine Glucose (UA) Urine Ketones Urine Blood Urine Nitrite Urine Bilirubin Urine Urobilinogen Ur Leukocyte Esterase Urine WBC (Auto) Urine RBC (Auto) U Hyaline Cast (Auto) U Epithel Cells (Auto) Urine Bacteria (Auto) Salicylates Urine Opiates Screen Ur Methadone, Qual Acetaminophen Urine Barbiturates Ur Phencyclidine (PCP) U Amphetamines Confirm U Amphetamin/Meth Scrn U Methamphetamin Confrm MDMA (Ecstasy) Screen U Benzodiazepines Scrn Ur Cocaine Metabolite U Marijuana (THC) Screen Drug Screen Comment Ethyl Alcohol mg/dL < 3.0 Hospital Course (1) Psychosis: 04/06 - stopped adderall xr and adderall ir educated pt about over usage of such medications has tendency to bring out psychotic smyptoms simmilar to his presentation and withdrawal brings out depressive smyptoms added risperdal 0.5mg odt 1 po bid plus 0.5mg odt 0.5mg prn up to twice a day for psychotic symptoms after r/b/a reviewed monitor for primary mood disorders, including MDD or bipolar d/o and treat accordingly family meeting with mother to be set up coordinate with outpt provider, re:suboxone and adderall and psyc hosis/mood concerns and usage concerns setting up aftercare for outpt psychiatric care and outpt psychotherapy appts mile[facility] therapy and individual and group inpt therapy q15 minutes safety checks for SI MNPR given degree of paranoia and disorganized thinking and command AH fasting sugar and lipids fully normal done on 04/06 adrressed 72 notice, pt indicating considering resinding notice given desire for treatment and given imrpovement of comfort but not ready yet with psychotic symptoms apeparing to impact this assessing need for invol committment hearing given degre of psychotic symtptoms and disorgnaized behaviors and SI and acts of furtherance in past few days if pt still having notable symptoms and does not rescind 72 notice 04/07 -The patient has rescinded his 72-hour notice and is agreeing to remain hospitalized voluntarily. -He notes that he has begun to feel somewhat less depressed and his voices are not as intense, and not as frequent, and he is also feeling more safe. -The patient acknowledges that he has sometimes "overused" and "missed used" buprenorphine and Adderall. He does not seem to be seeking Adderall at this time. -He indicates that he is responding to risperidone, and offers no complaints at risperidone 0.5 mg twice a day. Today, we will increase the dose of risperidone to 1 mg twice a day and titrate further as indicated and tolerated. 04/08 - continue risperdal 1mg po bid as he has ongoing but less AH, add cogentin prn for akathisia "restlessness" he is aware discussed risks of blurry vision, and dry mouth, as well as some tiredness. He is agreeable to this plan, and is aware he can request prn risperdal in the day if distressed by the voices 04/09 - will continue risperdal 1mg po bid, has ongoing voices, but differential given persistance this many days away from stimulant is not either prolonged sequelae of cumulative methamphetamine/amphetamine use causing longer term brain problems, OR MDD wtih psychotic features. Will add remeron to traget low mood, and there is some reserach evidence that remeron can help those with amphetamine use disorders. DIsucssed risk of sedation and weight gain with remeron, and alongside risperdal will watch closely. Monitor mood stability given cannot fully r/o BPAD given vague history. Patient agrees to trial this meedication. (2) Substance use disorder: 04/06 maintained suboxone at 8mg 1 bid coordinate with outpt prescribing and usage concerns and psychosis and mood con cerns stopped adderall xr and ir and educate about his misuse and CHRIS concerns and how likely a main precipitating factor nicotine replacement (patch 21mg and prn niciotine) or while on unit with aim to see about quitting, pt too psychotic too conduct more detailed tobacco cessation education today 04/07 -The patient does acknowledge a fairly extensive history of substance abuse, including opioid dependence in the form of IV heroin use. He notes that he has been abstinent from heroin for approximately 2 years and is being treated with Suboxone. However, he acknowledges that he periodically misuses Suboxone. He also admits that he sometimes misuses Adderall. -Given the fact that the patient is psychotic, and a history of abusing Adderall, I agree with the plan not to restart Adderall now, and I would recommend that it not be restarted following discharge. -The patient has been educated about the various reasons not to miss use Suboxone, including, but not limited to the fact that misuse may lead to worsening addiction and dismissal from the Suboxone treatment program. Mental Health & Subst Abuse Tx Psychiatrist Name of Psychiatrist: [facility] Psychiatrist's Time of Appointment with Psychiatrist: they will schedule after your initial therapy appointment Psychiatric Appointment Comment: f/u on tobacco cessation Psychiatrist Release of Information: Obtained, Reviewed and Signed Therapist Name of Therapist: Aleksandar Spicer Therapist's Time of Therapist Appointment: Call to Schedule Therapy Appointment Comment: [address] [facility], [address]; [place], [place] Therapist Release of Information: Obtained, Reviewed and Signed Textile Finisher Name of Textile Finisher: Shanna Talavera Phone Number for Textile Finisher: [phone] Date of Appointment with Textile Finisher: 04/11/20 Time of Appointment with Textile Finisher: 11:00am Textile Finisher Release of Information: Obtained, Reviewed and Signed Post Discharge Appointments Primary Care Physician Name Of Family Doctor: Dr. Pena Primary Care Provider Appointment Comment: As needed Primary Care Release of Information: Obtained, Reviewed and Signed Smoking Cessation Counseling Tobacco Cessation Medication Prescribed at Discharge: Offered & Prescribed Tobacco Cessation Counseling: Referral Faxed Contact Information Discharge Discharge Address: [address] [place] [id number] Discharge Plan Discharge Items Patient Disposition: Home - Self-Care Reason For Visit: PSYCHOSIS NOS Discharge Diagnosis: - Psychosis NOS - Substance use disorder Condition on Discharge: Fair Activity: Resume your previous activity Non-emergency contact: Primary Care Provider, Psychiatrist, Therapist and Supervisor Cell Operation Call non-emergency contact if: you have any medication questions and your symptoms worsen Follow-up/Referrals: Musa Pena MD [Primary Care Provider] - Diet: Regular Addtl Attending Provider Instructions: SPECIAL CARE INSTRUCTIONS: 1. Follow through with your scheduled aftercare appointments. If unable to keep an appointment, please call to reschedule. 2. Take your medication only as prescribed. Medication should not be changed or stopped without the approval of your doctor. In the event of worsening symptoms or concerns about side effects, contact your doctor immediately. 3. Utilize new healthy coping skills, anger management skills, and stress management skills learned during your hospitalization. Journal feelings and process them with a support person. Identify stressors or situations that may result in relapse, deterioration or inappropriate behaviors and develop a plan to deal with those issues. 4. If your coping skills are ineffective and you are in crisis, contact your outpatient providers for direction. If unable to reach your providers, please call the [facility] CRISIS LINE AT , go to the [facility] walk-in center at [address], [address], [place], or go to the closest Emergency Room. 5. Avoid alcohol and un-prescribed drugs. Your Adderall has been discontinued during this stay. We are not recommending resuming this medication. 6. You have been provided with the Mental Health Advance Directives Pamphlet for your review. AFTERCARE APPOINTMENTS: * Please call your insurance company prior to your scheduled appointment to confirm your aftercare providers are covered. Take your insurance information to your appointments. WHO TO CALL AND WHEN: Medical Emergencies: For questions or emergencies related to your hospital stay, please contact the Inpatient Behavioral Health Unit at [phone]. A stack matcher is on-call 17/02 for the Behavioral Health Unit for emergencies At any time you feel your situation is an emergency, you may also call 911 immediately. Pending Studies at Discharge: No Stand-Alone Forms: My [facility] NanoViricides, Smoking Cessation Medications and DC Order Prescriptions: New mirtazapine 15 mg Tablet 15 mg PO HS 30 Days Qty: 30 RF: 0 risperidone 1 mg Tablet 1 mg PO BID 30 Days Qty: 60 RF: 0 risperidone 0.5 mg tablet 0.5 mg PO BID PRN (Reason: hallucinations/severe anxiety) 30 Days Qty: 30 RF: 0 benztropine 0.5 mg Tablet 0.5 mg PO Q6H PRN (Reason: restlessness/muscle stiffness) 30 Days Qty: 10 RF: 0 nicotine [Nicoderm CQ] 21 mg/24 hr Patch 24 Hour 21 mg transdermal QAM 30 Days Qty: 28 RF: 0 nicotine (polacrilex) [Nicorelief] 2 mg Gum 2 mg MT PRN PRN (Reason: nicotine cravings) 30 Days Qty: 100 RF: 0 Continued buprenorphine-naloxone 8-2 mg Tablet, Sublingual 1 tab SUBLINGUAL BID RF: 0 Discontinued dextroamphetamine-amphetamine 30 mg tablet 30 mg PO TID RF: 0 Discharge Orders: Discharge Order (Routine); Ordered 04/10/20 Ordered By: Ghada Maier Admission Data Admit Date/Time: 04/05/20 17:50 Attending Provider: Rochelle Han Admit Provider: Delmi Salas Primary Care Provider: Musa Pena Other Interventions: Discharge Summary Assessment (RN) Last Done: 04/10/20 17:04 PSY Interdisciplinary Discharge Planning Last Done: 04/10/20 17:07 Coding Level of Care Code 60689 D/C day mgmt > 30 min Diagnoses Psychosis F29 Substance use disorder F19.90
== END 2020-04-10 17:33 | disposition home or self-care (01) | DRG 885 ==
LOC: ED 14:15 → SUATTDRO 17:50 → 3S 17:50

== ENCOUNTER 2020-06-18 17:47 | Inpatient (IN) ==
[2020-06-18] MEDS ORDERED: SODIUM CHLORIDE 0.9% 1000ML 1,000 ML IV ONE ×2 (18:01→20:10)
--- NOTE | 2020-06-18 18:20 | Emergency Department Note ---
Impression & Plan Drug overdose, Suicide attempt by drug overdose, Transaminitis, Rhabdomyolysis, Depression, Substance use disorder ED Provider Note NAME: AYDEE BROWN AGE: 25 SEX: M ARRIVES VIA: Ambulance INFORMANT: Patient, EMS, Police ED PROVIDER(S): Brad Stanford MD CHIEF COMPLAINT: Suicide attempt. Adderall overdose PLAN: Disposition: admit MEDICAL DECISION MAKING: The patient is a 25-year-old gentleman with a past medical history of substance abuse, anxiety depression who presents emergency department accompanied by police after he attempted suicide by taking thirty of his 30 mg immediate release Adderall approximately 1 hour prior to arrival and 1 ingestion. He is clear that he is been feeling suicidal for many weeks now. He is evasive about any thing that may have provoked him to attempt today but the border police is aware that there have been developments in his custody zapata over his child. He denies any recent illness, fevers, chills, cough, congestion, exposure to COVID-19. 302 warrant by police. At this time he denies any chest pain, shortness of breath, palpitations, nausea, vomiting. On arrival the patient is melancholy appearing, flat affect. He is afebrile with stable vital signs. On exam the patient has mildly dilated pupils that are reactive. There is no nystagmus. Reflexes within normal limits. No clonus. Skin is warm and dry. He admits to being suicidal and admits that he told his mother of his attempt and says "that was a mistake". I did explain that given his concerning attempt he will need to be admitted involuntarily under 302 and he understands this. EKG without acute ischemia and normal intervals. CXR and KUB unremarkable. WBC, H/H, platelets wnl. Chemistry without acidosis. AST 263 up from 50 in March. ALT 167 similar to prior. INR wnl. Total and direct bilirubin wnl. UA negative. Apap and Salicylates not detected. Drug screen positive for meth, MDMA, and THC. Case was reviewed with the poison control center. Agrees that given the patient's concerning suicide attempt, reasonable to initiate NAC and trend LFTs despite negative apap as chronic ingestion is possible. Recommends benzodiazepines as needed for tachycardia or agitation. Will trial given elevated BP though patient is without significant sympathomemetic toxidrome at this time. CPK and lactate ordered per recommendation to evaluate for alternate cause for increased transaminitis. CPk was elevated to 6300 with IVF being provided. Given patient will require prolonged treatment and observation until medically cleared for psych evaluation, will admit. Case was discussed with TRINITY Ballesteros hospitalist, who will evaluate the patient for admission. Triage Nursing notes reviewed and agree them. Prior medical records reviewed Vital Signs: reviewed and remarkable for hypertension. Differential diagnosis: Overdose, toxicologic, infection, hypoglycemia, electrolyte abnormalities, cardiac sources, intracerebral event, neurologic, trauma, as well as other pathologies. ER treatment provided: See below. Diagnostics interpreted by me: ECG: NSR, 77 bpm, no ectopy, no overt ST elevation or depression, normal intervals. Cardiac Monitoring: An order for continuous cardiac monitoring was placed and demonstrated NSR, 74 bpm, no ectopy. Laboratory studies: See below. Imaging studies: XR chest 1V portable CLINICAL HISTORY: overdose COMPARISON STUDY: 01/03/2019 FINDINGS: The heart is normal in size. There is no failure. There is no lobar consolidation. Slightly prominent basilar markings are likely atelectatic. There are no significant pleural effusions.[ IMPRESSION: 1. Minor basilar atelectatic change 2. No evidence of lobar consolidation. No evidence of failure -- XR KUB/Abdomen 1 view CLINICAL HISTORY: overdose COMPARISON STUDY: No previous studies for comparison. FINDINGS: There is no pathologic bowel dilatation. No radiopaque foreign bodies are visualized. There is a left pelvic basin calcification likely representing a phlebolith. IMPRESSION: Nonobstructive bowel gas pattern. Consultation(s): Case was discussed with TRINITY Ballesteros hospitalist, who will evaluate the patient for admission. HPI: The patient is a 25-year-old gentleman with a past medical history of substance abuse, anxiety depression who presents emergency department accompanied by police after he attempted suicide by taking thirty of his 30 mg immediate release Adderall approximately 1 hour prior to arrival and 1 ingestion. He is clear that he is been feeling suicidal for many weeks now. He is evasive about any thing that may have provoked him to attempt today but the border police is aware that there have been developments in his custody zapata over his child. He denies any recent illness, fevers, chills, cough, co ngestion, exposure to COVID-19. 302 warrant by police. ROS: See above HPI for pertinent positives & negatives. A total of 10 systems reviewed and were otherwise negative. PAST MEDICAL HISTORY: See below. PAST SURGICAL HISTORY:See below. FAMILY HISTORY:See below. SOCIAL HISTORY:See below. HOME MEDICATIONS:See below. ALLERGIES: See below. VITALS:See below. PHYSICAL EXAMINATION: GENERAL: Awake, alert, melancholy-appearing, in no distress HENT: Normocephalic, atraumatic. Oropharynx with dry mucous membranes and otherwise unremarkable.. EYES: Normal conjunctiva. Sclera non-icteric. Pupils 5 mm and reactive. There is no nystagmus. EOMI. NECK: Supple. No nuchal rigidity. FROM. No JVD. RESPIRATORY: Clear to auscultation. CARDIAC: Regular rate, normal rhythm. Extremities warm and well perfused. Pulses equal. ABDOMEN: Soft, non-distended. No tenderness to palpation. No rebound or guarding. No masses. RECTAL: Deferred. MUSCULOSKELETAL: Chest examination reveals no tenderness. The back is symmetrical on inspection without obvious abnormality. There is no CVA tenderness to palpation. No joint edema. LOWER EXTREMITIES: Calves are equal size bilaterally and non-tender. No edema. No discoloration. NEURO: Normal sensorium. No sensory or motor deficits noted. Normal reflexes. No clonus. SKIN: Warm and dry. No rash or jaundice noted. ED COURSE: Critical Care: I have personally spent greater than 45 minutes of critical care time in the direct management of this patient. This includes bedside care, interpretation of diagnostic studies, and testing, discussion with consultants, patient, and family members, and other required patient management activities. This 45 minutes is in excess of all separately billable procedures. Brad Stanford MD Past Med/Surg History Medical History (Updated 06/19/20 @ 04:02 by Brad Stanford MD) Abdominal pain Anxiety Depression Headache Hearing voices Nausea & vomiting No significant past medical history Pain, dental Right pulmonary embolus Suicidal behavior Suicidal ideations Family History Other Family history of stroke Social History Smoking Status: Never smoker Tobacco Type: Cigarettes Second Hand Exposure: No; Do You Dip or Chew Tobacco: No; Hx Alcohol Use: No Hx Substance Use: Yes Last Used Substance: Unknown Preferred Language: Somali Communication Ability: Effective Bond Trader Required: No Beliefs That Will Affect Care: None Current Living Situation: Alone Other Information That Helps Us Care for You: No Feels Safe at Home: Yes Safety Concerns: Feels Safe At This Time Assistive Devices: None Allergies Allergies Allergy/AdvReac Type Severity Reaction Status Date / Time Penicillins Allergy Intermediate stomach Verified 06/18/20 23:49 issues Home Meds Home Medications Medication Instructions Recorded Confirmed buprenorphine-naloxone 1 tab SUBLINGUAL BID 04/05/20 06/18/20 mirtazapine [Remeron] 30 mg PO HS 05/24/20 06/18/20 dextroamphetamine-amphetamine 30 mg PO BID 06/18/20 06/18/20 Results & Data (ED) Vital Signs Vital Signs - 24 hr 06/18/20 17:54 06/18/20 17:59 06/18/20 18:07 Temperature 36.9 C Temperature Source Oral Pulse Rate 79 81 Pulse Rate from SpO2 Sensor Respiratory Rate 5 L 20 Blood Pressure 152/99 H 152/99 H Blood Pressure Mean 111 116 Pulse Oximetry 98 98 Oxygen Delivery Method Room Air Room Air Sepsis Recent Fever Within 48 Hours No Sepsis New/Unexplained Change in Mental Status N/A Sepsis Action Taken by Nursing No Action Required 06/18/20 18:18 06/18/20 18:30 06/18/20 19:00 Temperature Temperature Source Pulse Rate 81 78 87 Pulse Rate from SpO2 Sensor 79 79 87 Respiratory Rate 29 H 16 30 H Blood Pressure 140/94 144/104 H 162/105 H Blood Pressure Mean 108 112 126 Pulse Oximetry 97 100 100 Oxygen Delivery Method Sepsis Recent Fever Within 48 Hours Sepsis New/Unexplained Change in Mental Status Sepsis Action Taken by Nursing 06/18/20 19:31 Temperature Temperature Source Pulse Rate 73 Pulse Rate from SpO2 Sensor 78 Respiratory Rate 20 Blood Pressure 159/95 H Blood Pressure Mean 136 Pulse Oximetry 92 Oxygen Delivery Method Sepsis Recent Fever Within 48 Hours Sepsis New/Unexplained Change in Mental Status Sepsis Action Taken by Nursing Laboratory Data Attestation: I reviewed the patient's lab results. Result diagrams: 06/18/20 18:12 06/18/20 18:12 Lab Results 06/18/20 06/18/20 06/18/20 Range/Units 18:10 18:10 18:12 WBC 8.40 (4.8-10.8) K/uL RBC 4.49 L (4.7-6.1) M/uL Hgb 15.1 (14.0-18.0) g/dL Hct 42.6 (42-52) % MCV 94.9 (80-100) fL MCH 33.6 (25-34) pg MCHC 35.4 (32-36) g/dL RDW Std Deviation 40.5 (36.4-46.3) fL RDW Coeff of Nguyen 11.8 (11.5-14.5) % Plt Count 272 (130-400) K/uL MPV 9.7 (7.4-10.4) fL Immature Gran % (Auto) 0.1 % Neut % (Auto) 75.9 % Lymph % (Auto) 17.5 % [place] % (Auto) 5.6 % Eos % (Auto) 0.8 % Baso % (Auto) 0.1 % Neut # (Auto) 6.37 (1.4-6.5) K/uL Lymph # (Auto) 1.47 (1.2-3.4) K/uL [place] # (Auto) 0.47 (0.11-0.59) K/uL Eos # (Auto) 0.07 (0-0.5) K/uL Baso # (Auto) 0.01 (0-0.2) K/uL Immature Gran # (Auto) 0.01 (0.00-0.02) K/uL PT (9.0-12.0) Seconds INR (0.9-1.1) Sodium (136-145) mmol/L Potassium (3.5-5.1) mmol/L Chloride (98-107) mmol/L Carbon Dioxide (21-32) mmol/L Anion Gap (3-11) BUN (7-18) mg/dl Creatinine (0.6-1.4) mg/dl Est Cr Clr Drug Dosing ml/min Est GFR ( Amer) Est GFR (Non-Af Amer) BUN/Creatinine Ratio (10-20) Glucose (70-99) mg/dl Lactate (0.4-2.0) mmol/L Calcium (8.5-10.1) mg/dl Phosphorus (2.5-4.9) mg/dl Magnesium (1.8-2.4) mg/dl Total Bilirubin (0.2-1) mg/dl Direct Bilirubin (0-0.2) mg/dl AST (15-37) U/L ALT (12-78) U/L Alkaline Phosphatase (45-117) U/L Total Creatine Kinase (39-308) U/L Total Protein (6.4-8.2) gm/dl Albumin (3.4-5.0) gm/dl Globulin (2.5-4.0) gm/dl Albumin/Globulin Ratio (0.9-2) TSH (0.300-4.500) uIu/ml Urine Color Yellow Urine Appearance Clear (Clear) Urine pH 6.5 (4.5-7.5) Ur Specific [place] 1.015 (1.000-1.030) Urine Protein Negative (Negative) Urine Glucose (UA) Negative (Negative) Urine Ketones Negative (Negative) Urine Blood Negative (Negative) Urine Nitrite Negative (Negative) Urine Bilirubin Negative (Negative) Urine Urobilinogen Negative (Negative) Ur Leukocyte Esterase Negative (Negative) Salicylates (2.8-20) mg/dl Urine Opiates Screen Neg (Neg) Ur Methadone, Qual Neg (Neg) Acetaminophen (10-30) ug/ml Urine Barbiturates Neg (Neg) Ur Phencyclidine (PCP) Neg (Neg) U Amphetamin/Meth Scrn Pos H (Neg) MDMA (Ecstasy) Screen Pos H (Neg) U Benzodiazepines Scrn Neg (Neg) Ur Cocaine Metabolite Neg (Neg) U Marijuana (THC) Screen Pos H (Neg) Ethyl Alcohol mg/dL (0-3) mg/dl 06/18/20 06/18/20 06/18/20 Range/Units 18:12 18:12 18:12 WBC (4.8-10.8) K/uL RBC (4.7-6.1) M/uL Hgb (14.0-18.0) g/dL Hct (42-52) % MCV (80-100) fL MCH (25-34) pg MCHC (32-36) g/dL RDW Std Deviation (36.4-46.3) fL RDW Coeff of Nguyen (11.5-14.5) % Plt Count (130-400) K/uL MPV (7.4-10.4) fL Immature Gran % (Auto) % Neut % (Auto) % Lymph % (Auto) % [place] % (Auto) % Eos % (Auto) % Baso % (Auto) % Neut # (Auto) (1.4-6.5) K/uL Lymph # (Auto) (1.2-3.4) K/uL [place] # (Auto) (0.11-0.59) K/uL Eos # (Auto) (0-0.5) K/uL Baso # (Auto) (0-0.2) K/uL Immature Gran # (Auto) (0.00-0.02) K/uL PT (9.0-12.0) Seconds INR (0.9-1.1) Sodium 136 (136-145) mmol/L Potassium 4.1 (3.5-5.1) mmol/L Chloride 104 (98-107) mmol/L Carbon Dioxide 26 (21-32) mmol/L Anion Gap 6.0 (3-11) BUN 11 (7-18) mg/dl Creatinine 1.21 (0.6-1.4) mg/dl Est Cr Clr Drug Dosing 106.6 ml/min Est GFR ( Amer) 94.5 Est GFR (Non-Af Amer) 81.6 BUN/Creatinine Ratio 8.9 L (10-20) Glucose 115 H (70-99) mg/dl Lactate (0.4-2.0) mmol/L Calcium 9.0 (8.5-10.1) mg/dl Phosphorus 2.3 L (2.5-4.9) mg/dl Magnesium 1.9 (1.8-2.4) mg/dl Total Bilirubin 0.6 (0.2-1) mg/dl Direct Bilirubin 0.2 (0-0.2) mg/dl AST 263 H (15-37) U/L ALT 167 H (12-78) U/L Alkaline Phosphatase 72 (45-117) U/L Total Creatine Kinase 6302 H (39-308) U/L Total Protein 7.8 (6.4-8.2) gm/dl Albumin 4.1 (3.4-5.0) gm/dl Globulin 3.7 (2.5-4.0) gm/dl Albumin/Globulin Ratio 1.1 (0.9-2) TSH 0.888 (0.300-4.500) uIu/ml Urine Color Urine Appearance (Clear) Urine pH (4.5-7.5) Ur Specific [place] (1.000-1.030) Urine Protein (Negative) Urine Glucose (UA) (Negative) Urine Ketones (Negative) Urine Blood (Negative) Urine Nitrite (Negative) Urine Bilirubin (Negative) Urine Urobilinogen (Negative) Ur Leukocyte Esterase (Negative) Salicylates < 1.7 L (2.8-20) mg/dl Urine Opiates Screen (Neg) Ur Methadone, Qual (Neg) Acetaminophen < 2 L (10-30) ug/ml Urine Barbiturates (Neg) Ur Phencyclidine (PCP) (Neg) U Amphetamin/Meth Scrn (Neg) MDMA (Ecstasy) Screen (Neg) U Benzodiazepines Scrn (Neg) Ur Cocaine Metabolite (Neg) U Marijuana (THC) Screen (Neg) Ethyl Alcohol mg/dL < 3.0 (0-3) mg/dl 06/18/20 06/18/20 Range/Units 18:16 20:49 WBC (4.8-10.8) K/uL RBC (4.7-6.1) M/uL Hgb (14.0-18.0) g/dL Hct (42-52) % MCV (80-100) fL MCH (25-34) pg MCHC (32-36) g/dL RDW Std Deviation (36.4-46.3) fL RDW Coeff of Nguyen (11.5-14.5) % Plt Count (130-400) K/uL MPV (7.4-10.4) fL Immature Gran % (Auto) % Neut % (Auto) % Lymph % (Auto) % [place] % (Auto) % Eos % (Auto) % Baso % (Auto) % Neut # (Auto) (1.4-6.5) K/uL Lymph # (Auto) (1.2-3.4) K/uL [place] # (Auto) (0.11-0.59) K/uL Eos # (Auto) (0-0.5) K/uL Baso # (Auto) (0-0.2) K/uL Immature Gran # (Auto) (0.00-0.02) K/uL PT 11.0 (9.0-12.0) Seconds INR 1.0 (0.9-1.1) Sodium (136-145) mmol/L Potassium (3.5-5.1) mmol/L Chloride (98-107) mmol/L Carbon Dioxide (21-32) mmol/L Anion Gap (3-11) BUN (7-18) mg/dl Creatinine (0.6-1.4) mg/dl Est Cr Clr Drug Dosing ml/min Est GFR ( Amer) Est GFR (Non-Af Amer) BUN/Creatinine Ratio (10-20) Glucose (70-99) mg/dl Lactate 0.8 (0.4-2.0) mmol/L Calcium (8.5-10.1) mg/dl Phosphorus (2.5-4.9) mg/dl Magnesium (1.8-2.4) mg/dl Total Bilirubin (0.2-1) mg/dl Direct Bilirubin (0-0.2) mg/dl AST (15-37) U/L ALT (12-78) U/L Alkaline Phosphatase (45-117) U/L Total Creatine Kinase (39-308) U/L Total Protein (6.4-8.2) gm/dl Albumin (3.4-5.0) gm/dl Globulin (2.5-4.0) gm/dl Albumin/Globulin Ratio (0.9-2) TSH (0.300-4.500) uIu/ml Urine Color Urine Appearance (Clear) Urine pH (4.5-7.5) Ur Specific [place] (1.000-1.030) Urine Protein (Negative) Urine Glucose (UA) (Negative) Urine Ketones (Negative) Urine Blood (Negative) Urine Nitrite (Negative) Urine Bilirubin (Negative) Urine Urobilinogen (Negative) Ur Leukocyte Esterase (Negative) Salicylates (2.8-20) mg/dl Urine Opiates Screen (Neg) Ur Methadone, Qual (Neg) Acetaminophen (10-30) ug/ml Urine Barbiturates (Neg) Ur Phencyclidine (PCP) (Neg) U Amphetamin/Meth Scrn (Neg) MDMA (Ecstasy) Screen (Neg) U Benzodiazepines Scrn (Neg) Ur Cocaine Metabolite (Neg) U Marijuana (THC) Screen (Neg) Ethyl Alcohol mg/dL (0-3) mg/dl Administered Medications Sodium Phosphate 21 mmol/ (Sodium Chloride) 507 mls @ 88 mls/hr IV ONE STA Stop: 06/19/20 06:36 Last Admin: 06/19/20 02:30 Dose: 88 mls/hr Documented by: [id number] Discontinued Medications Acetylcysteine (Acetylcysteine Iv 21 Hr Regimen (>40kg)) 1 ea IV NOW STA; Protocol Stop: 06/18/20 20:08 Last Admin: 06/18/20 23:00 Dose: Not Given Documented by: [id number] Sodium Chloride (Nss 1000ml) 1,000 mls @ 999 mls/hr IV .Q1H1M ONE Stop: 06/18/20 19:01 Last Infusion: 06/18/20 19:46 Dose: 0 mls/hr Documented by: [id number] Admin: 06/18/20 18:21 Dose: 999 mls/hr Documented by: [id number] Acetylcysteine 13,080 mg/ (Dextrose) 265.4 mls @ 200 mls/hr IV ONCE ONE Stop: 06/18/20 21:26 Last Infusion: 06/18/20 23:22 Dose: 0 mls/hr Documented by: [id number] Admin: 06/18/20 21:19 Dose: 200 mls/hr Documented by: [id number] Acetylcysteine 4,360 mg/ (Dextrose) 521.8 mls @ 125 mls/hr IV ONCE ONE Stop: 06/19/20 01:18 Last Admin: 06/18/20 23:22 Dose: 125 mls/hr Documented by: [id number] Lorazepam (Ativan) 1 mg in 2 mls @ 2 mls/min IV NOW STA Stop: 06/18/20 20:10 Last Admin: 06/18/20 23:22 Dose: Not Given Documented by: [id number] Sodium Chloride (Nss 1000ml) 1,000 mls @ 999 mls/hr IV .Q1H1M ONE Stop: 06/18/20 21:10 Last Infusion: 06/18/20 22:34 Dose: 0 mls/hr Documented by: [id number] Admin: 06/18/20 21:19 Dose: 999 mls/hr Documented by: [id number] Discharge Plan Visit Data Chief Complaint: Overdose (Intentional) ED Provider: Brad Stanford Discharge Problem: Drug overdose, Suicide attempt by drug overdose, Transaminitis, Rhabdomyolysis, Depression, Substance use disorder Patient Disposition: Admitted As Inpatient Discharge Instructions Interventions: ED Discharge Assessment Last Done: 06/19/20 00:20 Discharge Problem: Drug overdose Qualifiers: Encounter type: initial encounter Injury intent: intentional self-harm Qualified Code(s): T50.902A - Poisoning by unspecified drugs, medicaments and biological substances, intentional self-harm, initial encounter Rhabdomyolysis Qualifiers: Rhabdomyolysis type: non-traumatic Qualified Code(s): M62.82 - Rhabdomyolysis Depression Qualifiers: Depression Type: unspecified Qualified Code(s): F32.9 - Major depressive disorder, single episode, unspecified
[2020-06-18 18:27] LABS: Basophils # (auto) 0.01 K/uL (0-0.2); Basophils % (auto) 0.1 %; Eosinophils # (auto) 0.07 K/uL (0-0.5); Eosinophils % (auto) 0.8 %; Hematocrit (blood only) 42.6 % (42-52); Hemoglobin 15.1 g/dL (14.0-18.0); Immature Granulocytes # (auto) 0.01 K/uL (0.00-0.02); Immature Granulocytes % (auto) 0.1 %; Lymphocytes # (auto) 1.47 K/uL (1.2-3.4); Lymphocytes % (auto) 17.5 %; Mean Corpuscular Hemoglobin 33.6 pg (25-34); Mean Corpuscular Hgb Conc 35.4 g/dL (32-36); Mean Corpuscular Volume 94.9 fL (80-100); Mean Platelet Volume 9.7 fL (7.4-10.4); Monocytes # (auto) 0.47 K/uL (0.11-0.59); Monocytes % (auto) 5.6 %; Neutrophils # (auto) 6.37 K/uL (1.4-6.5); Neutrophils % (auto) 75.9 %; Platelet Count 272 K/uL (130-400); RDW Coefficient of Variation 11.8 % (11.5-14.5); RDW Standard Deviation 40.5 fL (36.4-46.3); Red Blood Count 4.49 M/uL (4.7-6.1)
--- NOTE | 2020-06-18 18:37 | XRay Report ---
XR chest 1V portable CLINICAL HISTORY: overdose COMPARISON STUDY: 01/03/2019 FINDINGS: The heart is normal in size. There is no failure. There is no lobar consolidation. Slightly prominent basilar markings are likely atelectatic. There are no significant pleural effusions.[ IMPRESSION: 1. Minor basilar atelectatic change 2. No evidence of lobar consolidation. No evidence of failure ACT 112: Negative or not required by law. Electronically signed by: Bradley Benitez M.D. 06/18/2020 6:36 PM
--- NOTE | 2020-06-18 18:39 | XRay Report ---
XR KUB/Abdomen 1 view CLINICAL HISTORY: overdose COMPARISON STUDY: No previous studies for comparison. FINDINGS: There is no pathologic bowel dilatation. No radiopaque foreign bodies are visualized. There is a left pelvic basin calcification likely representing a phlebolith. IMPRESSION: Nonobstructive bowel gas pattern. ACT 112: Negative or not required by law. Electronically signed by: Bradley Benitez M.D. 06/18/2020 6:38 PM
[2020-06-18 18:41] LABS: Appearance Urine Clear (Clear); Bilirubin Urine Negative (Negative); Blood Urine Negative (Negative); Color Urine Yellow; Glucose Urine UA Negative (Negative); Ketones Urine Negative (Negative); Leukocyte Esterase Urine Negative (Negative); Nitrite Urine Negative (Negative); Protein Urine Negative (Negative); Specific Gravity Urine 1.015 (1.000-1.030); Urobilinogen Urine Negative (Negative); pH Urine 6.5 (4.5-7.5)
[2020-06-18 18:52] LABS: Albumin Level 4.1 gm/dl (3.4-5.0); BUN Creatinine Ratio 8.9 (10-20); Bilirubin Direct 0.2 mg/dl (0-0.2); Creatinine Clr Calc Pharmacy 106.6 ml/min; Est GFR (African American) 94.5; Est GFR (Non-African American) 81.6; Potassium 4.1 mmol/L (3.5-5.1)
[2020-06-18 19:02] LABS: Albumin Globulin Ratio 1.1 (0.9-2); Bilirubin,Total 0.6 mg/dl (0.2-1); Globulin 3.7 gm/dl (2.5-4.0); Thyroid Stimulating Hormone 0.888 uIu/ml (0.300-4.500); Total Protein 7.8 gm/dl (6.4-8.2)
[2020-06-18 19:15] LABS: Amphetamines+Metham, Urine Pos (Neg); Barbiturates, Urine Neg (Neg); Benzodiazepine, Urine Neg (Neg); Cocaine, Urine Neg (Neg); MDMA (Ecstacy), Urine Pos (Neg); Methadone, Urine Neg (Neg); Opiate, Urine Neg (Neg); Phencyclidine, Urine Neg (Neg)
[2020-06-18 19:25] LABS: Acetaminophen < 2 ug/ml (10-30)
[2020-06-18 19:26] LABS: Salicylate < 1.7 mg/dl (2.8-20)
[2020-06-18 19:42] LABS: Magnesium 1.9 mg/dl (1.8-2.4); Phosphorus 2.3 mg/dl (2.5-4.9)
[2020-06-18] MEDS ORDERED: AcetylCYSTEINE IV 21 HR REGIMEN (>40KG) IV STA (20:07)
[2020-06-18] MEDS ORDERED: ACETYLCYSTEINE IV ONE ×2 (20:07→21:08)
[2020-06-18] MEDS ORDERED: DEXTROSE 5% IV ONE ×2 (20:07→21:08)
[2020-06-18] MEDS ORDERED: LORazepam 1 MG/2 ML VIAL IV STA (20:09)
--- NOTE | 2020-06-18 21:39 | History & Physical Report ---
Date of Service June 18, 2020 Assessment & Plan (1) Substance use disorder: Pt is a 25yo with a PMHx significant for substance use disorder (heroin, meth) currently on buprenorphine-naloxone, anxiety, ADHD, depression who was admitted under a 302 for intentional overdose of 30 pills of Adderall 30mg. Intentional Overdose -Pt overdosed on 30 pills of Adderall 30mg, currently asymptomatic -Tox screen positive for marijuana, MDMA, amphetamine use -EKG with NSR, qtc of 389, HR 77 -NAC protocol given associated LFT elevation (see below) -admit to med/tele for continued monitoring -[address] until medically cleared -psych consult -one to one, suicide precautions Increased LFTs -AST/ALT elevated, almost 2:1 ratio -pt states he rarely uses tylenol, but drinks alcohol regularly -Tox screen, tylenol <2 -NAC protocol as above -continue to monitor with AM labs ADHD -hold home adderall given overdose above Depression -continue home Remeron 30mg qhs Hx of heroin abuse -continue home buprenorphine-naloxone FEN/GI: Regular diet CODE STATUS: Full code DVT prophylaxis: ambulation as tolerated Dispo: Med/Surg with tele (2) Suicide attempt by drug overdose: (3) Anxiety: (4) Depression: (5) ADHD: History of Present Illness Primary Care Provider: Musa Pena MD Pt is a 25yo with a PMHx significant for substance use disorder (heroin, meth) currently on buprenorphine-naloxone, anxiety, ADHD, depression who was admitted under a 302 for intentional overdose of 30 pills of Adderall 30mg. Pt was seen, a bit subdued, not too talkative. States he took about 30 pills of Adderall at about 5pm and is currently asymptomatic. States he has "a bunch of shit" going on in his life right now and so he wished to end it. Declines to elaborate. Denies being currently suicidal. Reportedly, pt called his mother after overdose and was brought in by police. States he takes his suboxone daily and drinks alcohol as well, "several days", drink of choice being whiskey and rum. Allergies Allergy/AdvReac Type Severity Reaction Status Date / Time Penicillins Allergy Intermediate stomach Verified 06/18/20 23:49 issues Home Medications Medication Instructions Recorded Confirmed Type buprenorphine-naloxone 1 tab SUBLINGUAL BID 04/05/20 06/18/20 History mirtazapine [Remeron] 30 mg PO HS 05/24/20 06/18/20 History dextroamphetamine-amphetamine 30 mg PO BID 06/18/20 06/18/20 History Past Med/Surg History Medical History Abdominal pain Anxiety Depression Headache Hearing voices Nausea & vomiting No significant past medical history Pain, dental Right pulmonary embolus Suicidal behavior Suicidal ideations Family History Other Family history of stroke Social History Smoking Status: Never smoker Tobacco Type: Cigarettes Second Hand Exposure: No; Do You Dip or Chew Tobacco: No; Hx Alcohol Use: No Hx Substance Use: Yes Last Used Substance: Unknown Preferred Language: Urdu Communication Ability: Effective Tire Mounter Required: No Beliefs That Will Affect Care: None Current Living Situation: Alone Other Information That Helps Us Care for You: No Feels Safe at Home: Yes Safety Concerns: Feels Safe At This Time Assistive Devices: None Review of Systems Constitutional: no fever, no chills and no sweats Eyes: no worsening vision Ear, Nose, Mouth, Throat: no nasal congestion and no sore throat Respiratory: no cough and no dyspnea Cardiovascular: no chest pain, no dyspnea, no palpitations and no edema Gastrointestinal: no abdominal pain, no nausea, no vomiting, no constipation, no diarrhea/loose stools and no blood in stools Genitourinary: no dysuria and no hematuria Musculoskeletal: no back pain Integumentary: no rash Neurologic: no tingling, no numbness, no headache(s) and no confusion Psychiatric: + depression and + anxiety; no suicidal ideation, no homicidal ideation and no confusion Physical Exam Physical Exam: General: Alert, oriented. No acute distress laying in bed Skin: No noted rashes or bruises Psych: Depressed/subdued mood and affect Neuro: No gross deficits HEENT: NC/AT, PERRLA, EOMI, oropharynx moist. Chest: Nontender to palpation. CV: RRR, Normal s1, s2. No murmurs appreciated Resp: Breath sounds clear bilaterally, no increased effort of breathing. No crackles/rhonchi/rales. Abdomen:\\Soft, nontender, nondistended. No guarding. Extremities: No edema in lower extremities bilaterally. Results & Data Results & Data ([facility]) Vital Signs (Past 12 Hours) Vital Signs Temp Pulse Pulse Resp BP BP Pulse Ox 06/18/20 21:09 77 17 147/94 H 99 06/18/20 19:31 73 20 159/95 H 92 06/18/20 19:00 87 30 H 162/105 H 100 06/18/20 18:30 78 16 144/104 H 100 06/18/20 18:18 81 29 H 140/94 97 06/18/20 18:07 98 06/18/20 17:59 36.9 C 81 20 152/99 H 98 06/18/20 17:54 79 5 L 152/99 H Supervising Physician Co-Signing Physician Notes Patient seen and examined, chart reviewed, case discussed with Dr. Kirby and I agree with her assessment and plan as above. Briefly, patient is a 25yo male presenting after intentional overdose of adderall in attempt to end his life. Patient has been struggling with depression and some increased stressors in his family. Verbally contracted for safety while in the hospital On exam he is afebrile, mildly tachycardic otherwise stable. Flat and withdrawn, does not wish to answer questions HEENT - NC/AT, PERRL Heart - +S1/S2, regular, tachycardic Lungs- CTA Abd - +BS, soft, NT/ND Ext -No edema Neuro - grossly intact with no focal deficits Labs and images reviewed. Significant for elevated SAM=898, RIX=089, PO4 low at 2.3 Assessment/Plan- -21 hour NAC protocol as recommended by poison control given abnormal LFTs - ?chronic Tylenol OD. Not highly suspected. Patient does drink EtOH, most likely source of abnormal LFTs. -Check acute hepatitis panel -Suicide precautions, 1:1 sitter, Psychiatry consultation appreciated -Remainder of plan as above Resident Activity Tracking Resident Involvement: Resident Care Provided Care Provided: Adult Hospital Medicine
[2020-06-19] MEDS ORDERED: SODIUM PHOSPHATE 3 MMOL/1 ML INFUSION IV STA (00:48)
[2020-06-19] MEDS ORDERED: SODIUM PHOSPHATE 21 MMOL in SODIUM CHLORIDE 0.9% 500 ML IV STA (00:51)
[2020-06-19] MEDS ORDERED: ACETYLCYSTEINE IV ONE (01:08)
[2020-06-19] MEDS ORDERED: DEXTROSE 5% IV ONE (01:08)
--- NOTE | 2020-06-19 02:27 | Billing Data ---
Date of Service June 18, 2020 Coding Level of Care Code 74077 Initial Inpt Care Lvl 3
[2020-06-19] MEDS ORDERED: LORazepam 1 MG/2 ML VIAL IV STA (04:12)
[2020-06-19 07:24] LABS: Basophils # (auto) 0.01 K/uL (0-0.2); Basophils % (auto) 0.1 %; Eosinophils # (auto) 0.03 K/uL (0-0.5); Eosinophils % (auto) 0.4 %; Hematocrit (blood only) 42.5 % (42-52); Hemoglobin 14.9 g/dL (14.0-18.0); Immature Granulocytes # (auto) 0.02 K/uL (0.00-0.02); Immature Granulocytes % (auto) 0.2 %; Lymphocytes # (auto) 1.81 K/uL (1.2-3.4); Lymphocytes % (auto) 21.8 %; Mean Corpuscular Hemoglobin 33.3 pg (25-34); Mean Corpuscular Hgb Conc 35.1 g/dL (32-36); Mean Corpuscular Volume 95.1 fL (80-100); Mean Platelet Volume 10.1 fL (7.4-10.4); Monocytes # (auto) 0.68 K/uL (0.11-0.59); Monocytes % (auto) 8.2 %; Neutrophils # (auto) 5.77 K/uL (1.4-6.5); Neutrophils % (auto) 69.3 %; Platelet Count 284 K/uL (130-400); RDW Coefficient of Variation 11.8 % (11.5-14.5); RDW Standard Deviation 40.6 fL (36.4-46.3); Red Blood Count 4.47 M/uL (4.7-6.1); White Blood Count 8.32 K/uL (4.8-10.8)
[2020-06-19 07:55] LABS: Albumin Level 3.7 gm/dl (3.4-5.0); BUN Creatinine Ratio 7.3 (10-20); Calcium 9.3 mg/dl (8.5-10.1); Creatinine Clr Calc Pharmacy 137.8 ml/min; Est GFR (African American) 106.1; Est GFR (Non-African American) 91.5; Potassium 3.8 mmol/L (3.5-5.1)
[2020-06-19 07:58] LABS: Globulin 3.8 gm/dl (2.5-4.0); Total Protein 7.5 gm/dl (6.4-8.2)
[2020-06-19 08:25] LABS: Hepatitis B Surface Antigen Neg (Neg)
[2020-06-19] MEDS ORDERED: BUPRENORPHINE/NALOXONE 8/2 MG TAB SL SCH (09:00)
--- NOTE | 2020-06-19 09:47 | Psychiatric Consultation ---
Date of Consultation June 19, 2020 Impression / Recommendations Impression Dr. Rochelle Han was directly involved in review and discussion of the patient's case and participated in medical decision making regarding treatment recommendations. RECOMMENDATIONS: 06/19 - Psychiatric consultation requested to evaluate patient s/p intentional Adderall overdose. Pt was last seen on our unit in 03/2020. 302 [address] warrant completed by police. - Pt does admit that his Adderall overdose was an attempt to end his life. While he describes the overdose as impulsive, he states he had been having suicidal thoughts for 1-2 weeks before "I eventually got the courage to do it." Pt admits that he did not follow-up with outpatient psychiatric referrals that were arranged after his mental health admission in 03/2020. He reports desire to have treatment for his depressed mood and admits to ongoing auditory hallucinations as well. Pt was informed of recommendation for inpatient psychiatric treatment after medical clearance. Pt indicates he does not wish to be in the hospital on , suggesting he would go home and then "check back in after." Pt was given education on the process for psychiatric admissions and was informed of the presence of a 302 warrant. Would be hesitant to refer the patient voluntarily for inpatient psychiatric treatment given frequent statements suggesting he is not committed to treatment recommendations. - In the interim, the patient agreed to prn doses of risperidone 0.5mg that he can use for auditory hallucinations or distress/agitation. Consideration to continue this medication on a scheduled basis can be determined at the accepting psychiatric facility. Can continue scheduled dose of mirtazapine 30mg qHS. - Discontinue Adderall based on overdose, history of substance abuse, and patient admitting to using the medication to "get high." Would not advise patient be prescribed medications with abuse potential until/unless he is able to demonstrate commitment to mental stability and is engaged with the appropriate supports to monitor use. Will fax this consultation to patient's PCP to allow for coordination of care and communication of concerns. Pt also stated he is no longer taking Suboxone - hospitalist updated. - Due to the presence of the 302 warrant, patient should not be permitted to leave the hospital AMA. Please feel free to notify our service when patient is approaching medical clearance and we can assist with referral process for Psych History Identifying Data 25-year-old male admitted medically on 06/18/2020 after presenting to the ED on a 302 [address] warrant completed by police, s/p suicide attempt by intentional Adderall overdose. Psychiatric consultation requested to evaluate patient given overdose and 302 warrant. Chief Complaint "Ah...depression. For the last 1-2 months I've been stuck in a rut, a deeper and deeper rut." History of Present Illness Jair Ngo is a 25-year-old male admitted medically on 06/18/2020 after presenting to the ED s/p intentional Adderall overdose. Documentation suggests the patient ingested #30 - 30mg Adderall, reported he is going through "a bunch of shit" and indicated a desire to end his life. Psychiatric consultation was requested to evaluate patient s/p suicide attempt by intentional overdose. 302 [address] warrant completed by police, statement reads: On 06/18/20 Jair called his mother and told her he took 30 Adderall in an attempt to kill himself. His mother called 911. When I arrived Jair told me he was depressed and felt everybody in his life would be better off if he was . Jair said he took the 30 pills to . Jair told me he suffers from depression and anxiety. Pt was admitted to [facility] in 03/2020 with psychosis and auditory hallucinations telling him to kill himself - initially concern that this may have been related to Adderall misuse. Pt was discharged on mirtazapine 15mg qHS; risperidone 1mg BID, 0.5mg BID prn; Suboxone was continued, and Adderall was discontinued. He was referred to [facility] for D&A therapy and medication management. Pt was superficially cooperative with psychiatric assessment. Pt states that he has been in "a deeper and deeper rut" for the past several months. Pt reports "I've just been having a lot of problems with people and letting little stuff blow up. Although the patient describes his overdose as an impulsive decision, he contradicts himself by admitting to suicidal ideation for the past 1-2 weeks but "I finally got up the courage to do it." Pt admits that he had taken the "24-25 pills" of 30mg Adderall with the intent to end his life. He does admit that he is happy his attempt was unsuccessful, and he is now stating that he recognizes he needs help. Pt is able to recall his admission to our unit in 03/2020 - stating he was "just shitting you guys" when he verbalized interest in outpatient treatment. He states he did not follow-up with [facility] as scheduled and stopped taking his risperidone shortly after discharge. Pt also states "I called my PCP a week ago to get back on Adderall. It was a stupid decision, I think I just asked so I could use it to get high." Pt also states that he stopped taking Suboxone as of 1 week ago. Pt does admit to low mood, poor appetite, inconsistent sleep, and hopelessness/worthlessness. He admits to awareness that he could not work with his current mental health instability. He continues to endorse auditory hallucinations of voices "talking shit about my kids, shit about me being a father, shit about me getting back to work." He states these voices sound "like they're coming from a speaker system under my house, just talking shit like through a negar phone." Pt denies that they have been commanding him to harm himself, but admits they are distressing. Pt was informed of recommendation for inpatient psychiatric treatment once he is medically cleared. He informed this provider that, although "I do think I need that", he plans to leave the hospital in two days to celebrate Thanksgiving with his kids "and then I'll check myself in." Pt was informed that unfortunately mental health admissions after an intentional overdose are recommended to be direct transfer. He was informed of the 302 warrant and that he is not able to leave the hospital AMA. Pt did continue attempts to bargain about being released for the holiday. He was informed that this is not the recommendation of our service. Pt did agree to prn risperidone during his medical floor admission. He denied other needs or concerns from our service at this time. Past Psychiatric History Outpatient Services: None - referred to [facility] as part of 03/2020 admission, states he never followed-up with treatment Previous Psych Admissions: [facility] - 03/2020: admitted with auditory hallucinations telling him to kill himself. Past Medication Trials: 1. Risperdal 2. Cogentin 3. Adderall 4. Remeron 5. Suboxone Allergies Allergy/AdvReac Type Severity Reaction Status Date / Time Penicillins Allergy Intermediate stomach Verified 06/18/20 23:49 issues Home Medications Medication Instructions Recorded Confirmed Type buprenorphine-naloxone 1 tab SUBLINGUAL BID 04/05/20 06/18/20 History mirtazapine [Remeron] 30 mg PO HS 05/24/20 06/18/20 History dextroamphetamine-amphetamine 30 mg PO BID 06/18/20 06/18/20 History Family History Denies known family history of mental health conditions. Substance Abuse History History of Adderall, heroin, and opiod abuse Personal History Living Arrangements: Home Highest Grade Completed: High School Graduate Employment Status: Unemployed Number Of Children: 3 sons - ages 8, 9, and 5 History of Legal Problems: Denied Patient History Medical History Abdominal pain Anxiety Depression Headache Hearing voices Nausea & vomiting No significant past medical history Pain, dental Right pulmonary embolus Suicidal behavior Suicidal ideations Family History Other Family history of stroke Social History Smoking Status: Never smoker Tobacco Type: Cigarettes Second Hand Exposure: No; Do You Dip or Chew Tobacco: No; Hx Alcohol Use: No Hx Substance Use: Yes Last Used Substance: Unknown Preferred Language: [place] Communication Ability: Effective Area Operations Manager Required: No Beliefs That Will Affect Care: None Current Living Situation: Alone Other Information That Helps Us Care for You: No Feels Safe at Home: Yes Safety Concerns: Feels Safe At This Time Assistive Devices: None Physical Exam Psychiatric: Orientation: alert, oriented x 3 and + guarded (superficially cooperative ) Apperance: appropriately dressed, + disheveled and appeared stated age Eye Contact: + fair eye contact Motor Behavior: + psychomotor agitation (fidgeting) Speech: normal rate/rhythm/volume of speech Affect: + depressed affect and mood congruent with affect Mood: + depressed mood Thought Process: goal directed thought process and clear/coherent thought process Thought Content: reality based without delusions, + hopelessness and + worthlessness Suicidal Thoughts: denies suicidal thoughts Homicidal Thoughts: denies homicidal thoughts Hallucinations: + auditory hallucinations (hears voices: discussing his kids, his parenting style, and his job search); no visual hallucinations Cognition: attention grossly intact and language grossly intact Estimated Intelligence: consistent with education level Insight: + poor insight Judgement: + poor judgement Vital Signs (Past 24 Hours): Last Vital Signs Temp 37.3 C 06/19/20 07:30 Pulse 88 06/19/20 07:30 Resp 20 06/19/20 07:30 BP 139/91 06/19/20 07:30 Pulse Ox 97 06/19/20 07:30 Review of Systems Constitutional: denied Cardiovascular: denied Respiratory: denied Gastrointestinal: denied Neurological: denied Musculoskeletal: reports soreness of "left arm and left side" Psychiatric: denies symptoms other than stated above Total of at least 10 systems reviewed, pertinent positives as above and in HPI. Results & Data (PSY) Medications Administered Buprenorphine/Naloxone (Buprenorphine/Naloxone 8/2 Mg Tab) 1 tab SL BID DIOMEDES Stop: 07/19/20 08:59 Last Admin: 06/19/20 08:20 Dose: 1 tab Documented by: [id number] Acetylcysteine 8,720 mg/ (Dextrose) 1,043.6 mls @ 62.5 mls/hr IV ONCE ONE Stop: 06/19/20 17:49 Last Admin: 06/19/20 03:59 Dose: 62.5 mls/hr Documented by: [id number] Coding Level of Care Code 29011 [facility] Care Lvl 3
[2020-06-19] MEDS: risperiDONE 0.5 MG TABLET PO PRN (14:29)
[2020-06-19 15:54] LABS: INR 1.1 (0.9-1.1); Prothrombin Time 11.9 Seconds (9.0-12.0)
[2020-06-19 16:04] LABS: Albumin Level 3.9 gm/dl (3.4-5.0); Bilirubin Direct 0.2 mg/dl (0-0.2); Bilirubin,Total 0.7 mg/dl (0.2-1); Total Protein 7.5 gm/dl (6.4-8.2)
--- NOTE | 2020-06-19 17:27 | Hospitalist Progress Note ---
Date of Service June 19, 2020 Assessment & Plan (1) Suicide attempt by drug overdose: -Pt overdosed on 30 pills of Adderall 30mg, currently asymptomatic -Tox screen positive for marijuana, MDMA, amphetamine use -EKG with NSR, qtc of 389, HR 77 -NAC protocol given associated LFT elevation (see below) - Heart rate on telemetry tachycardic but patient without chest pain or sob. -[address] - not permitted to leave the hospital -psych consult -one to one, suicide precautions - Patient is still quite tachycardic this evening in the 150s, will order metoprolol 25 mg bid po (2) Substance use disorder: discontinue suboxone per psych rec - patient is no longer taking this (3) Depression: Continue home remeron Risperidone for auditory hallucinations/agitation (4) ADHD: hold home adderal given overdose. Would recommend this medication not be prescribed again (5) Transaminitis: -AST/ALT elevated, almost 2:1 ratio -pt states he rarely uses tylenol, but drinks alcohol regularly -Tox screen, tylenol <2 -NAC protocol as above -improving on am labs (6) DVT prophylaxis: low risk - ambulation Admission and Anticipated Discharge Date Admission Date: June 18, 2020 Subjective Mr. Ngo is feeling "antsy" and having trouble resting. He denies any sob or chest pain. He reports that he is glad that his suicide attempt did not result in his and no longer feels he wants to kill himself. Review of Systems Constitutional: no fever, no chills and no body aches Respiratory: no cough and no dyspnea Cardiovascular: no chest pain, no dyspnea and no palpitations Gastrointestinal: no abdominal pain, no nausea and no vomiting Genitourinary: no dysuria and no urinary hesitancy Musculoskeletal: no back pain and no joint pain Integumentary: no rash Physical Exam Physical Exam: General: no distress Eyes: normal inspection, PERLL Respiratory: chest non tender, clear to auscultation, normal breath sounds, no respiratory distress, no accessory muscle use Cardiac: regular rate and rhythm, no rub or gallop, no murmur, no edema, no jvd GI/: active bowel sounds, no abd pain or tenderness, soft, non distended Extremities: normal range of motion, normal strength, non tender Neuro/Psych: alert and oriented x 3, normal mood and flat affect Skin: normal color, dry Results & Data Results & Data ([facility]) Vital Signs (Past 12 Hours) Vital Signs Temp Pulse Pulse Resp BP Pulse Ox 06/19/20 16:00 36.6 C 123 H 18 133/67 95 06/19/20 15:47 132 H 06/19/20 11:45 37 C 142 H 18 139/86 95 06/19/20 07:30 37.3 C 88 20 139/91 97 PG Care Time/CCT Total # of Minutes Spent Total Time Spent with Patient: Total time spent is greater than 50% in coordination of care (as documented) at patient's floor/unit and/or counseling patient: Coding Level of Care Code 92955 Subseq Hosp Care Lvl 3 Diagnoses Suicide attempt by drug overdose T50.902A Substance use disorder F19.90 Depression F32.9 Depression Type: unspecified ADHD F90.9 Transaminitis R74.01 DVT prophylaxis Z29.9 (1) Depression Depression Type: unspecified Qualified Code(s): F32.9 - Major depressive disorder, single episode, unspecified
[2020-06-19] MEDS ORDERED: METOPROLOL TARTRATE 25 MG TAB PO SCH (17:30)
[2020-06-19] MEDS ORDERED: LORazepam 1 MG TAB PO STA (17:49)
[2020-06-19] MEDS: MIRTAZAPINE TAB 15 MG TAB PO SCH (20:28)
--- NOTE | 2020-06-19 21:34 | Electrocardiogram Report ---
Test Reason : Blood Pressure : / mmHG Vent. Rate : 077 BPM Atrial Rate : 077 BPM P-R Int : 142 ms QRS Dur : 088 ms QT Int : 344 ms P-R-T Axes : 040 007 044 degrees QTc Int : 389 ms Normal sinus rhythm Normal ECG When compared with ECG of 03-JAN-2019 10:02, No significant change was found Confirmed by Axel Ford ([id number]) on 06/19/2020 9:34:39 PM Referred By: REFERRED SELF Confirmed By:Axel Ford
[2020-06-20 07:35] LABS: Hepatitis A Antibody IgM NON-REACTIVE (NON-REACTIVE); Hepatitis B Core Antibody IgM NON-REACTIVE (NON-REACTIVE)
[2020-06-20 09:13] LABS: Albumin Level 3.5 gm/dl (3.4-5.0); BUN Creatinine Ratio 11.2 (10-20); Calcium 9.3 mg/dl (8.5-10.1); Creatinine Clr Calc Pharmacy 124.2 ml/min; Est GFR (African American) 93.6; Est GFR (Non-African American) 80.8
[2020-06-20 09:16] LABS: Albumin Globulin Ratio 1.1 (0.9-2); Bilirubin,Total 1.2 mg/dl (0.2-1); Globulin 3.3 gm/dl (2.5-4.0); Total Protein 6.8 gm/dl (6.4-8.2)
--- NOTE | 2020-06-20 15:04 | Hospitalist Progress Note ---
Date of Service June 20, 2020 Assessment & Plan (1) Suicide attempt by drug overdose: -Pt overdosed on 30 pills of Adderall 30mg, currently asymptomatic -Tox screen positive for marijuana, MDMA, amphetamine use -EKG with NSR, qtc of 389, HR 77 -NAC protocol given associated LFT elevation (see below) - Heart rate on telemetry tachycardic but patient without chest pain or sob. -[address] - not permitted to leave the hospital -psych consult -one to one, suicide precautions - Given one dose of metoprolol 25 mg last evening, heart rate now wnl. Patient likely able to discharge to behavioral health tomorrow. COVID test ordered in preparation (2) Substance use disorder: discontinue suboxone per psych rec - patient is no longer taking this (3) Depression: Continue home remeron Risperidone for auditory hallucinations/agitation (4) ADHD: hold home adderal given overdose. Would recommend this medication not be prescribed again (5) Transaminitis: -AST/ALT elevated, almost 2:1 ratio -pt states he rarely uses tylenol, but drinks alcohol regularly -Tox screen, tylenol <2 -NAC protocol as above -improving on am labs (6) DVT prophylaxis: low risk - ambulation Admission and Anticipated Discharge Date Admission Date: June 18, 2020 Subjective Mr. Ngo is feeling better today, able to sleep. Heart rate has improved. Review of Systems Constitutional: no fever, no chills and no body aches Respiratory: no cough, no dyspnea and no wheezing Cardiovascular: no chest pain, no palpitations and no lightheadedness Gastrointestinal: no abdominal pain, no nausea and no vomiting Genitourinary: no dysuria and no urinary hesitancy Musculoskeletal: no back pain and no joint pain Integumentary: no rash Physical Exam Physical Exam: General: no distress Eyes: normal inspection, PERLL Respiratory: chest non tender, clear to auscultation, normal breath sounds, no respiratory distress, no accessory muscle use Cardiac: regular rate and rhythm, no rub or gallop, no murmur, no edema, no jvd GI/: active bowel sounds, no abd pain or tenderness, soft, non distended Extremities: normal range of motion, normal strength, non tender Neuro/Psych: alert and oriented x 3, normal mood and flat affect Skin: normal color, dry Results & Data Results & Data ([facility]) Vital Signs (Past 12 Hours) Vital Signs Temp Pulse Pulse Resp BP BP Pulse Ox 06/20/20 11:52 36.4 C L 72 18 93/61 L 98/54 L 96 06/20/20 08:53 36.8 C 67 16 107/62 98 06/20/20 07:41 68 PG Care Time/CCT Total # of Minutes Spent Total Time Spent with Patient: Total time spent is greater than 50% in coordination of care (as documented) at patient's floor/unit and/or counseling patient: Coding Level of Care Code 78677 Subseq Hosp Care Lvl 2 Diagnoses Suicide attempt by drug overdose T50.902A Substance use disorder F19.90 Depression F32.9 Depression Type: unspecified ADHD F90.9 Transaminitis R74.01 DVT prophylaxis Z29.9 (1) Depression Depression Type: unspecified Qualified Code(s): F32.9 - Major depressive disorder, single episode, unspecified
[2020-06-20] MEDS: risperiDONE 0.5 MG TABLET PO PRN (18:12)
[2020-06-20] MEDS: MIRTAZAPINE TAB 15 MG TAB PO SCH (21:01)
[2020-06-21 09:14] LABS: Hematocrit (blood only) 40.8 % (42-52); Hemoglobin 13.9 g/dL (14.0-18.0); Mean Corpuscular Hemoglobin 33.1 pg (25-34); Mean Corpuscular Hgb Conc 34.1 g/dL (32-36); Mean Corpuscular Volume 97.1 fL (80-100); Mean Platelet Volume 10.1 fL (7.4-10.4); Platelet Count 241 K/uL (130-400); RDW Coefficient of Variation 11.8 % (11.5-14.5); White Blood Count 4.17 K/uL (4.8-10.8)
[2020-06-21 09:49] LABS: Albumin Level 3.6 gm/dl (3.4-5.0); BUN Creatinine Ratio 13.6 (10-20); Calcium 9.3 mg/dl (8.5-10.1); Creatinine Clr Calc Pharmacy 117.5 ml/min; Est GFR (African American) 87.5; Est GFR (Non-African American) 75.5; Potassium 3.9 mmol/L (3.5-5.1)
[2020-06-21 09:52] LABS: Albumin Globulin Ratio 1.1 (0.9-2); Bilirubin,Total 0.9 mg/dl (0.2-1); Globulin 3.2 gm/dl (2.5-4.0); Total Protein 6.8 gm/dl (6.4-8.2)
--- NOTE | 2020-06-21 10:07 | Discharge Summary ---
Date of Service June 21, 2020 Admission HPI Per Admitting Provider Pt is a 25yo with a PMHx significant for substance use disorder (heroin, meth) currently on buprenorphine-naloxone, anxiety, ADHD, depression who was admitted under a 302 for intentional overdose of 30 pills of Adderall 30mg. Pt was seen, a bit subdued, not too talkative. States he took about 30 pills of Adderall at about 5pm and is currently asymptomatic. States he has "a bunch of shit" going on in his life right now and so he wished to end it. Declines to elaborate. Denies being currently suicidal. Reportedly, pt called his mother after overdose and was brought in by police. States he takes his suboxone daily and drinks alcohol as well, "several days", drink of choice being whiskey and rum. Principal Diagnosis Intentional overdose Discharge Exam Constitutional WD/WN, vitals as above Respiratory normal respiratory effort, lungs clear to auscultation Cardiovascular RRR, no murmur, no edema Gastrointestinal (Abdomen) normal bowel sounds, soft, nontender, no hepatosplenomegaly Musculoskeletal no cyanosis or clubbing, extremities motor strength 5/5 Skin no rashes, warm and dry Neurologic moves all extremities and awake Psychiatric Orientation: alert and oriented x 3 Affect: + flat affect Discharge Data Allergies Allergy/AdvReac Type Severity Reaction Status Date / Time Penicillins Allergy Intermediate stomach Verified 06/18/20 23:49 issues Consultations 06/18/20 20:09 ED Decision to Admit Stat 06/19/20 11:58 Consult Psychiatry Routine Hospital Course (1) Suicide attempt by drug overdose: -Pt overdosed on 30 pills of Adderall 30mg, currently asymptomatic -Tox screen positive for marijuana, MDMA, amphetamine use -EKG with NSR, qtc of 389, HR 77 -NAC protocol given associated LFT elevation (see below) - Heart rate on telemetry tachycardic initially but now resolved - patient without chest pain or sob. -[address] - not permitted to leave the hospital -psych consult -one to one, suicide precautions - Psych faxed copy of their consultation to pcp with recommendation to discontinue amphetamine prescription (2) Substance use disorder: discontinue suboxone per psych rec - patient is no longer taking this (3) Depression: Continue home remeron Risperidone for auditory hallucinations/agitation (4) ADHD: hold home adderal given overdose. Would recommend this medication not be prescribed again (5) Transaminitis: -AST/ALT elevated, almost 2:1 ratio on admission -pt states he rarely uses tylenol, but drinks alcohol regularly -Tox screen, tylenol <2 -NAC protocol as above -improving on am labs - repeat LFTs in 1 week (6) DVT prophylaxis: low risk - ambulation Total Time Total Time Spent Total Time Spent (In Minutes): greater than 30 minutes Discharge Plan Discharge Items Patient Disposition: Transfer Behavioral Health Fac Reason For Visit: INTENTIONAL OVERDOSE Discharge Diagnosis: Intentional overdose Activity: Resume your previous activity Non-emergency contact: Primary Care Provider Call non-emergency contact if: you have any medication questions Follow-up/Referrals: Musa Pena MD [Primary Care Provider] - 07/04/20 12:30 pm (You have a discharge follow up with Dr Pena on 07/04 @ [id number]. It is important that you keep this appt, if it does not fit your schedule, please call [phone] to reschedule ) Diet: Regular Addtl Attending Provider Instructions: Mr. Ngo should have his LFTs checked in one week to follow their trend. Pending Studies at Discharge: No Stand-Alone Forms: My [facility] Medications and DC Order Prescriptions: Continued mirtazapine [Remeron] 30 mg tablet 30 mg PO HS RF: 0 Discontinued dextroamphetamine-amphetamine 30 mg tablet 30 mg PO BID RF: 0 buprenorphine-naloxone 8-2 mg Tablet, Sublingual 1 tab SUBLINGUAL BID RF: 0 No Action risperidone [Risperdal] 0.5 mg tablet 0.5 mg PO Q4 PRN (Reason: hallucinations, agitation) RF: 0 Discharge Orders: Discharge Order (Routine); Ordered 06/21/20 Ordered By: Niesha Martin Admission Data Admit Date/Time: 06/18/20 21:06 Attending Provider: Frederick Diallo Admit Provider: Nova Kirby Primary Care Provider: Musa Pena Other Providers: Preeti Luna Melissa C. Other Interventions: Discharge Summary Assessment (RN) Last Done: 06/21/20 11:40 Supervising Physician Co-Signing Physician Notes Attending Attestation: Pt seen/examined, chart reviewed, discharge care plan d/w ANDREZ Recinos. I agree w/ the sanchez components of her documentation. 25yo male with polysubstance abuse - presented s/p intentional overdose by way of prescription Adderall. admitted to tele. received NAC protocol due to elevated transaminases. Vitals remained stable. remained 1:1 during the visit. at discharge is transferring to the mental health unit for ongoing care. Discharge exam: gen - NAD heart - rrr, s1 s2 lungs - cta b/l abd - soft, NT, ND, BS+, no HSM ext - no edema Oneil Reno MD Coding Level of Care Code D/C Day Management >30 mins Diagnoses Suicide attempt by drug overdose T50.902A Substance use disorder F19.90 Depression F32.9 Depression Type: unspecified ADHD F90.9 Transaminitis R74.01 DVT prophylaxis Z29.9
--- NOTE | 2020-06-21 11:32 | Psychiatric Progress Note ---
Date of Service June 21, 2020 Impression / Recommendations Impression Inpatient psychiatric treatment indicated due to mood, psychotic symptoms, and suicide attempt by overdose. Patient has been noncompliant with outpatient treatment, did not follow-up with scheduled appointments, and is abusing his medications. He is unwilling to sign involuntarily, so completed the 302 involuntary commitment started by police. (1) Suicide attempt by drug overdose: Transferred to the [facility] on a 302 involuntary commitment (2) Depression: (3) Substance use disorder: (4) Opiate abuse, continuous: (5) Stimulant abuse: Risk Factors Assessment Male: Yes : Yes Health Problems: No Mental Health Diagnoses: Yes Substance Use Disorders: Yes Previous Attempt: Yes Previous Psychiatric Hospitalization: Yes Protective Factors Assessment : No Responsible for Young Children: No Employed: No Stable Relationships: No Supportive Family: Yes Good Rapport with Provider: No Interval History Identifying Information 25-year-old male who lives in [place] with his mother, has a history of substance abuse (heroin, methamphetamine, prescription stimulants and opiates, and others), depression, 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 He is seen today for follow-up Chief Complaint "I honestly don't know". Subjective Subjective Patient was seen & assessed and interval progress reviewed with the theatric liaison nurse and primary team. Patient was seen for an initial consultation 2 days ago by ANDREZ Mcginnis. At that time he reported overdosing on #30 tabs of 30 mg Adderall in an attempt to end his life. He said he never followed up with outpatient treatment (had been referred to [facility] when on our unit in March 2020) and said he was "just shitting you guys." He also admitted he did not continue medications that he was prescribed in the hospital, and although Adderall was stopped here, he called his PCP about a week prior and requested a new Adderall prescription "so I could get high." He said he had stopped Suboxone a week prior, and did not want to take it anymore. He reported command auditory hallucinations telling him to harm himself and saying bad things about him and his children. He refused recommendations for inpatient psychiatric treatment. He is on a 302 [address] B warrant completed by police, statement reads: "On 06/18/20 Jair called his mother and told her he took 30 Adderall in an attempt to kill himself. His mother called 911. When I arrived Jair told me he was depressed and felt everybody in his life would be better off if he was . Jair said he took the 30 pills to . Jair told me he suffers from depression and anxiety." Although he saw the psychiatric liaison nurse earlier this morning and indicated he was willing to sign involuntarily, on my assessment he says he does not want inpatient treatment. When asked what has changed, he says "I don't know." He answers in this manner to most questions, is vague, evasive, and not forthcoming. He says he does not know why he took the overdose, and denied having any stressors, when reflected that the record indicates he recently lost custody of his 3 children and that his ex- took them and moved away, he admits this is true. He references being "stuck in my head," and when asked for more information, says he can't explain it. He says he was thinking about suicide for 1-2 days prior to taking the overdose, but had told the PA that he was contemplating suicide for 1-2 weeks. He did sign releases for his mother and PCP. While on the medical floor, Suboxone and Adderall were stopped, but mirtazapine continued and risperidone 0.5 mg every 4 hours as needed ordered, and he has received 2 doses. Physical Exam Psychiatric Orientation: alert; + uncooperative Apperance: + disheveled and appeared stated age Wearing shorts and a paper scrub top. Extensive tattoos over bilateral upper extremities Eye Contact: + poor eye contact Motor Behavior: no abnormal motor movements Minimal, soft, mumbles at times and is difficult to understand. Affect: + depressed affect, + irritable affect and + constricted affect; + mood not congruent with affect "Better." Vague, evasive Answers are short, often states "I don't know." Not a reliable historian Suicidal Thoughts: denies suicidal thoughts But admits to overdose on Adderall prior to presentation in a suicide attempt Homicidal Thoughts: denies homicidal thoughts Hallucinations: + auditory hallucinations Cognition: + recent memory not intact (Unclear if memory is impaired or he is just unwilling to provide informatio) and + attention not intact Estimated Intelligence: + below average estimated intelligence Insight: + poor insight Judgement: + poor judgement Vital Signs (Past 24 Hours) Last Vital Signs Temp 36.7 C 06/20/20 19:00 Pulse 95 H 06/21/20 07:42 Resp 16 06/21/20 07:42 BP 126/83 06/21/20 07:42 Pulse Ox 100 06/21/20 07:42 Results & Data ([facility]) Laboratory Results Laboratory Results - last 24 hr 06/20/20 06/21/20 06/21/20 Unknown 08:50 08:50 WBC 4.17 L RBC 4.20 L Hgb 13.9 L Hct 40.8 L MCV 97.1 MCH 33.1 MCHC 34.1 RDW Std Deviation 42.0 RDW Coeff of Nguyen 11.8 Plt Count 241 MPV 10.1 Sodium 143 Potassium 3.9 Chloride 108 H Carbon Dioxide 31 Anion Gap 4.0 BUN 18 Creatinine 1.29 Est Cr Clr Drug Dosing 117.5 Est GFR ( Amer) 87.5 Est GFR (Non-Af Amer) 75.5 BUN/Creatinine Ratio 13.6 Glucose 71 Calcium 9.3 Total Bilirubin 0.9 AST 76 H ALT 122 H Alkaline Phosphatase 58 Total Protein 6.8 Albumin 3.6 Globulin 3.2 Albumin/Globulin Ratio 1.1 SARS-CoV-2 Ag (Rapid) Negative Current Inpatient Medications Current Inpatient Medications: Current Inpatient Medications Metoprolol Tartrate (Metoprolol Tartrate 25 Mg Tab) 25 mg PO BID DIOMEDES Stop: 07/19/20 17:29 Last Admin: 06/19/20 18:38 Dose: 25 mg Documented by: Mirtazapine (Mirtazapine Tab 15 Mg Tab) 30 mg PO HS DIOMEDES Stop: 07/19/20 20:59 Last Admin: 06/20/20 21:01 Dose: 30 mg Documented by: Risperidone (Risperidone 0.5 Mg Tablet) 0.5 mg PO Q4 PRN PRN Reason: Agitation Stop: 07/19/20 12:55 Last Admin: 06/20/20 18:12 Dose: 0.5 mg Documented by: (1) Depression Depression Type: unspecified Qualified Code(s): F32.9 - Major depressive disorder, single episode, unspecified
[2020-06-22 23:11] LABS: Amphetamine Urine, Confirm >15000 ng/mL (<250); MDA negative; MDEA negative; MDMA (Ecstasy) Urine, Confirm negative; Marijuana Quant, GCMS Urine 42 ng/mL (<5); Methamphetamine, Ur Confirm NEGATIVE ng/mL (<250)
== END 2020-06-21 13:09 | DRG 918 ==
LOC: ED 17:47 → SUATTDRO 21:06 → 2W 21:06

== ENCOUNTER 2020-06-21 12:05 | Inpatient (IN) ==
[2020-06-21] MEDS ORDERED: ACETAMINOPHEN 325 MG TAB PO PRN (12:43)
[2020-06-21] MEDS ORDERED: MAGNESIUM HYDROXIDE SUSP 30 ML UDC PO PRN (12:43)
[2020-06-21] MEDS ORDERED: ALUMINUM/MAGNESIUM SUSP 30 ML UDC PO PRN (12:43)
[2020-06-21] MEDS ORDERED: BISMUTH SUBSALICYLATE LIQD 236 ML PO PRN (12:43)
[2020-06-21] MEDS ORDERED: SODIUM CHLORIDE 0.65% NA SOLN 45 ML (OCEAN) PRN (12:43)
[2020-06-21] MEDS: MIRTAZAPINE TAB 15 MG TAB PO SCH (21:21)
[2020-06-22] MEDS ORDERED: BENZTROPINE MESYLATE 1 MG TAB PO PRN (09:40)
[2020-06-22] MEDS: risperiDONE 0.5 MG TABLET PO SCH ×2 (10:06→20:29)
--- NOTE | 2020-06-22 11:50 | History & Physical ---
Date of Service June 22, 2020 Impression / Recommendations Impression 25 yo male with a history of opiate and stimulant abuse, presents s/p Adderall OD but endorses persistent aud parsons and mood swings prior to refilling Adderall. He is willing to resume mood stabilizer to assist with aud parsons. (1) Psychotic disorder due to psychoactive substance: The patient was admitted to the [facility] ([facility]) on q15 min checks (behavioral with suicide precautions) for safety. The patient will participate in group, recreational, and milieu therapies and will be offered additional individual and family sessions as clinically appropriate. He finds benefit from Remeron and would like to continue it. Reviewed that Risperdal retrial recommended given Adderall OD but his reports of mood swings and aud parsons off substances likely suggest underlying bipolar component and should only continue in combination with a mood stabilizer. Risks/benefits/alternatives reviewed re: Risperdal 0.5 mg BID to start, discussion included but was not limited to need for metabolic and TD monitoring, has metabolic panel on chart from <90 days ago. (2) Substance use disorder: mother to be contacted to remove suboxone, coordination with Adderall prescriber re: hx of OD. My suspicion is that many of his reported ADHD sx are related to bipolar disorder. Inventory Assets Strengths: cooperative despite 302 (yet guarded around parsons), desire to see children Needs: outpatient treatment (dual dx) Risk Factors Assessment Male: Yes : Yes Do You Have Access To A Gun?: No Mental Health Diagnoses: Yes Substance Use Disorders: Yes Previous Attempt: Yes Previous Psychiatric Hospitalization: Yes Protective Factors Assessment Responsible for Young Children: No Psychiatric History Identifying Data Jair Ngo is a 25-year-old male admitted medically on 06/18/2020 after presenting to the ED s/p intentional Adderall overdose. He was seen by consult service on 06/19 and again on day of medical clearance. He was admitted on a 302 commitment. Chief Complaint "not sure what I want, since I'm here, I hear voices all the time.". History of Present Illness Per consult service: Documentation suggests the patient ingested #30 - 30mg Adderall, reported he is going through "a bunch of shit" and indicated a desire to end his life. Psychiatric consultation was requested to evaluate patient s/p suicide attempt by intentional overdose. 302 [address] B warrant completed by police, statement reads: On 06/18/20 Jair called his mother and told her he took 30 Adderall in an attempt to kill himself. His mother called 911. When I arrived Jair told me he was depressed and felt everybody in his life would be better off if he was . Jair said he took the 30 pills to . Jair told me he suffers from depression and anxiety. Alok was admitted to [facility] in 03/2020 with psychosis and auditory hallucinations telling him to kill himself - initially concern that this may have been related to Adderall misuse. Pt was discharged on mirtazapine 15mg qHS; risperidone 1mg BID, 0.5mg BID prn; Suboxone was continued, and Adderall was discontinued. He was referred to [facility] for D&A therapy and medication management. Jair states that he has been having an increase in non-specific auditory parsons (won't elaborate much) for 2 months, even prior to misuse of Adderall. He states that he spends they day in bed either with restlessness and racing thoughts when he doesn't sleep well or with amotivation and low mood. He has marked difficulty making eye contact and elaborating on his symptoms. He had told Ghada Maier PA-C: Pt does admit to low mood, poor appetite, inconsistent sleep, and hopelessness/worthlessness. He admits to awareness that he could not work with his current mental health instability. He continues to endorse auditory hallucinations of voices "talking shit about my kids, shit about me being a father, shit about me getting back to work." He states these voices sound "like they're coming from a speaker system under my house, just talking shit like through a negar phone." Pt denies that they have been commanding him to harm himself, but admits they are distressing. He states he regularly will go more than 2 days without sleep (denies fueled by Adderall). He doesn't seem to care about much but ended up not wanting to sign in as he was hoping to see his kids for Thanksgiving. "I don't want any of that stuff anymore" referring to his suboxone and Adderall. He isn't clear whether he is or isn't hearing things here in the hospital but is willing to "take something" to help. States Risperdal was "fine" just didn't continue it when he left the hospital in Mar. Past Psychiatric History Previous Psych History: Current Psychiatric Diagnosis: ADD; depression; anxiety Outpatient Services: Dr. Pena for suboxone and adderall for past 1 1/2 years, denied other h/o outpt services Previous Psych Admissions: [facility] approx 10 or so years ago ] hx of 2 inpt rehab substance treatments, most recently [facility] for Heroin usage, left after 14 days with recomendation length of stay 21 days, prior one [facility]ias years ago for Meth usage. History of Previous Suicide Attempt: Yes Describe Attempts in the Past: Hx of overdose on pills Past Medication Trials: adderall xr and adderall ir Current Psychiatric Diagnosis: MDD, Anxiety, Stimulant Abuse, Opiate Abuse Do You Have Access To A Gun?: No Past Head Trauma/Neuro History History of Concussion/Seizure: No Allergies Allergy/AdvReac Type Severity Reaction Status Date / Time Penicillins Allergy Intermediate stomach Verified 06/18/20 23:49 issues Home Medications Medication Instructions Recorded Confirmed Type mirtazapine [Remeron] 30 mg PO HS 05/24/20 06/21/20 History risperidone [Risperdal] 0.5 mg PO Q4 PRN 06/21/20 06/21/20 History Family History Family Mental Health History Comment: denies Alcohol History Hx of Alcohol Use Over the Past 12 Months: Yes AUDIT Total Score: 4 Smoking Use Have You Smoked or Used Tobacco Products in the Last 30 Days: Yes tobacco type: cigarettes and smokeless tobacco Smoking Status: Current every day smoker Smoking packs per day: 0.15 Substance History Hx of Prescription Med Misuse Over the Past 12 Months: Yes (overdose of adderral) Hx of Over the Counter Med Misuse Over the Past 12 Months: No Hx of Inhalent Misuse Over the Past 12 Months: No Hx of Organic Substance Use Over the Past 12 Months: Yes (thc, hx of heroin) Hx of Illegal Substances/Street Drug Use Over Past 12 Months: Yes (hx.) Problems as a Result of Past Substance Use: Estranged from Family Personal History Living Arrangements: Home Highest Grade Completed: G.E.D. Marital Status: Number Of Children: 3 Beliefs That Will Affect Care: None Hx Legal Problems: Yes Hx Traumatic Life Events: Yes Patient History Medical History Abdominal pain Anxiety Depression Headache Hearing voices Nausea & vomiting No significant past medical history Opiate abuse, continuous Pain, dental Right pulmonary embolus Stimulant abuse Suicidal behavior Suicidal ideations Family History Other Family history of stroke Social History Smoking Status: Current every day smoker Tobacco Type: Cigarettes Second Hand Exposure: No; Hx Alcohol Use: No Hx Substance Use: Yes Last Used Substance: Unknown Preferred Language: Kosovan Communication Ability: Effective [employer] Chief Required: No Beliefs That Will Affect Care: None marital status: Single Current Living Situation: Alone Feels Safe at Home: Yes Assistive Devices: None Review of Systems Review of Systems: All systems reviewed & are unremarkable except as noted in HPI & below Physical Exam Psychiatric: Orientation: alert and + guarded Apperance: appropriately groomed and + disheveled Eye Contact: + fair eye contact Motor Behavior: no abnormal motor movements speech is non-sponatneous. Affect: + depressed affect Mood: + irritable mood Thought Process: + thought blocking (?) Thought Content: reality based without delusions Suicidal Thoughts: denies suicidal thoughts Homicidal Thoughts: denies homicidal thoughts Hallucinations: + auditory hallucinations (endorses but did not appear to be responding to internal stim) Cognition: language grossly intact; + attention not intact Estimated Intelligence: consistent with education level Insight: + poor insight Judgement: + poor judgement Vital Signs (Past 24 Hours): Last Vital Signs Temp 36.7 C 06/22/20 06:57 Pulse 73 06/22/20 06:58 Resp 16 06/22/20 06:57 BP 122/74 06/22/20 06:58 Exam Statement: A physical exam was performed on the medical floor by Dr. Karo drake for the purposes of medical clearance. I accept that physical as correct and adequate for the purposes of the inpatient physical exam. Results & Data (U) Current Inpatient Medications Current Inpatient Medications: Current Inpatient Medications Acetaminophen (Acetaminophen 325 Mg Tab) 650 mg PO Q4H PRN PRN Reason: Headache or Minor Fever Stop: 07/21/20 12:42 Al Hydrox/Mg Hydrox/Simethicone (Aluminum/Magnesium Susp 30 Ml Udc) 30 ml PO Q4H PRN PRN Reason: GI Upset Stop: 07/21/20 12:42 Benztropine Mesylate (Benztropine Mesylate 1 Mg Tab) 1 mg PO Q6 PRN PRN Reason: Muscle Spasm Stop: 07/22/20 09:39 Bismuth Subsalicylate (Bismuth Subsalicylate Liqd 236 Ml) 15 ml PO PRN PRN PRN Reason: Loose Stool Stop: 07/21/20 12:42 Hydroxyzine HCl (Hydroxyzine Hcl 25 Mg Tab) 50 mg PO HSZ PRN PRN Reason: Insomnia Stop: 07/21/20 12:42 Hydroxyzine HCl (Hydroxyzine Hcl 25 Mg Tab) 25 mg PO Q4H PRN PRN Reason: Anxiety Stop: 07/21/20 12:42 Magnesium Hydroxide (Magnesium Hydroxide Susp 30 Ml Udc) 30 ml PO DAILY PRN PRN Reason: Constipation Stop: 07/21/20 12:42 Mirtazapine (Mirtazapine Tab 15 Mg Tab) 30 mg PO HS DIOMEDES Stop: 07/21/20 21:59 Last Admin: 06/21/20 21:21 Dose: 30 mg Documented by: Risperidone (Risperidone 0.5 Mg Tablet) 0.5 mg PO Q4 PRN PRN Reason: hallucinations/agitation Stop: 07/21/20 16:15 Risperidone (Risperidone 0.5 Mg Tablet) 0.5 mg PO BID DIOMEDES Stop: 07/22/20 09:44 Last Admin: 06/22/20 10:06 Dose: 0.5 mg Documented by: Sodium Chloride (Sodium Chloride 0.65% Na Soln 45 Ml ([place])) 1 - 2 sprays NA PRN PRN PRN Reason: Nasal Dryness/Congestion Stop: 07/21/20 12:42
[2020-06-22] MEDS: risperiDONE 0.5 MG TABLET PO PRN (18:15)
[2020-06-22] MEDS: MIRTAZAPINE TAB 15 MG TAB PO SCH (20:29)
[2020-06-23] MEDS: risperiDONE 0.5 MG TABLET PO SCH (07:55)
[2020-06-23] MEDS: NICOTINE POLACRILEX 2 MG GUM MT PRN ×2 (10:04→17:19)
--- NOTE | 2020-06-23 10:19 | Psychiatric Progress Note ---
Date of Service June 23, 2020 Impression / Recommendations Impression 25 yo male with a history of opiate and stimulant abuse, presents s/p Adderall OD but endorses persistent aud parsons and mood swings prior to refilling Adderall. He is willing to resume mood stabilizer to assist with aud parsons. 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 The patient will participate in group, recreational, and milieu therapies and will be offered additional individual and family sessions as clinically appropriate. He finds benefit from Remeron and would like to continue it. Reviewed that Risperdal retrial recommended given Adderall OD but his reports of mood swings and aud parsons off substances likely suggest underlying bipolar component and should only continue in combination with a mood stabilizer. Risks/benefits/alternatives reviewed re: Risperdal 0.5 mg BID to start, discussion included but was not limited to need for metabolic and TD monitoring, has metabolic panel on chart from <90 days ago. 06/23--titrate Risperdal to 1 mg PO BID starting this pm. (2) Substance use disorder: mother to be contacted to remove suboxone, coordination with Adderall prescriber re: hx of OD. My suspicion is that many of his reported ADHD sx are related to bipolar disorder. Inventory Assets Strengths: cooperative despite 302 (yet guarded around parsons), desire to see children Needs: outpatient treatment (dual dx) Risk Factors Assessment Male: Yes : Yes Do You Have Access To A Gun?: No Mental Health Diagnoses: Yes Substance Use Disorders: Yes Previous Attempt: Yes Previous Psychiatric Hospitalization: Yes Protective Factors Assessment Responsible for Young Children: No Interval History Chief Complaint "I'm tired but feeling a little better". Review of Systems Sleep Information Total Hours of Sleep: 10 Meal Information Percent Meal Consumed - Breakfast: 100 Percent Meal Consumed - Lunch: 100 Percent Meal Consumed - Dinner: 100 Subjective Subjective Patient was seen & assessed and interval progress reviewed with nursing. Reports that aud parsons have decreased in frequency and intensity. Slept throughout day and >10 hrs overnight. Attributes to "coming off" Adderall, denies side effects of Risperdal. Confirmed previous dose was 1 mg BID and agreeable to increase. Behavior remains concrete but organized and cooperative. States he will comply with medication and aftercare recs. Physical Exam Psychiatric Orientation: alert Apperance: + disheveled Eye Contact: + fair eye contact Motor Behavior: no abnormal motor movements Affect: + depressed affect Mood: + dysphoric mood Thought Process: + concrete thought process Thought Content: reality based without delusions Suicidal Thoughts: denies suicidal thoughts Homicidal Thoughts: denies homicidal thoughts Hallucinations: + auditory hallucinations (endorses but did not appear to be responding to internal stim) Cognition: language grossly intact Estimated Intelligence: consistent with education level Insight: + poor insight Judgement: + poor judgement Vital Signs (Past 24 Hours) Last Vital Signs Temp 36.7 C 06/23/20 06:18 Pulse 72 06/23/20 06:18 Resp 18 06/23/20 06:18 BP 120/78 06/23/20 06:18 Results & Data ([facility] [[email or web address] Current Inpatient Medications Current Inpatient Medications: Current Inpatient Medications Acetaminophen (Acetaminophen 325 Mg Tab) 650 mg PO Q4H PRN PRN Reason: Headache or Minor Fever Stop: 07/21/20 12:42 Al Hydrox/Mg Hydrox/Simethicone (Aluminum/Magnesium Susp 30 Ml Udc) 30 ml PO Q4H PRN PRN Reason: GI Upset Stop: 07/21/20 12:42 Benztropine Mesylate (Benztropine Mesylate 1 Mg Tab) 1 mg PO Q6 PRN PRN Reason: Muscle Spasm Stop: 07/22/20 09:39 Bismuth Subsalicylate (Bismuth Subsalicylate Liqd 236 Ml) 15 ml PO PRN PRN PRN Reason: Loose Stool Stop: 07/21/20 12:42 Hydroxyzine HCl (Hydroxyzine Hcl 25 Mg Tab) 50 mg PO HSZ PRN PRN Reason: Insomnia Stop: 07/21/20 12:42 Hydroxyzine HCl (Hydroxyzine Hcl 25 Mg Tab) 25 mg PO Q4H PRN PRN Reason: Anxiety Stop: 07/21/20 12:42 Magnesium Hydroxide (Magnesium Hydroxide Susp 30 Ml Udc) 30 ml PO DAILY PRN PRN Reason: Constipation Stop: 07/21/20 12:42 Mirtazapine (Mirtazapine Tab 15 Mg Tab) 30 mg PO HS DIOMEDES Stop: 07/21/20 21:59 Last Admin: 06/22/20 20:29 Dose: 30 mg Documented by: Nicotine Polacrilex (Nicotine Polacrilex 2 Mg Gum) 1 piece MT Q2H PRN PRN Reason: cravings Stop: 07/23/20 09:47 Last Admin: 06/23/20 10:04 Dose: 1 piece Documented by: Risperidone (Risperidone 0.5 Mg Tablet) 0.5 mg PO Q4 PRN PRN Reason: hallucinations/agitation Stop: 07/21/20 16:15 Last Admin: 06/22/20 18:15 Dose: 0.5 mg Documented by: Risperidone (Risperidone 1 Mg Tablet) 1 mg PO BID DIOMEDES Stop: 07/23/20 20:59 Sodium Chloride (Sodium Chloride 0.65% Na Soln 45 Ml ([place])) 1 - 2 sprays NA PRN PRN PRN Reason: Nasal Dryness/Congestion Stop: 07/21/20 12:42 Mental Health & Subst Abuse Tx Trade Show Specialist Name of Trade Show Specialist: Shanna Talavera Phone Number for Trade Show Specialist: [phone] Post Discharge Appointments Primary Care Physician Name Of Family Doctor: Dr. Pena Primary Care Date of Appointment with PCP: 07/04/20 Time of Appointment with PCP: 12:30 p.m. Provider Appointment Comment: [address] [place] [address] Dr Michael Luevano, [place] [address] Contact Information Discharge Discharge Address: [address], [place] [address]
[2020-06-23] MEDS: hydrOXYzine HCl 25 MG TAB PO PRN ×2 (15:27→20:47)
[2020-06-23] MEDS: risperiDONE 1 MG TABLET PO SCH (20:46)
[2020-06-23] MEDS: MIRTAZAPINE TAB 15 MG TAB PO SCH (20:46)
[2020-06-24] MEDS: risperiDONE 1 MG TABLET PO SCH ×2 (08:32→21:26)
--- NOTE | 2020-06-24 08:54 | Psychiatric Progress Note ---
Date of Service June 24, 2020 Impression / Recommendations Impression 25 yo male with a history of opiate and stimulant abuse, presents s/p Adderall OD but endorses persistent aud parsons and mood swings prior to refilling Adderall. 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 ([facility] health unit) on q15 min checks (behavioral with suicide precautions) for safety. The patient will participate in group, recreational, and milieu therapies and will be offered additional individual and family sessions as clinically appropriate. He finds benefit from Remeron and would like to continue it. Reviewed that Risperdal retrial recommended given Adderall OD but his reports of mood swings and aud parsons off substances likely suggest underlying bipolar component and should only continue in combination with a mood stabilizer. Risks/benefits/alternatives reviewed re: Risperdal 0.5 mg BID to start, discussion included but was not limited to need for metabolic and TD monitoring, has metabolic panel on chart from <90 days ago. 06/23--titrate Risperdal to 1 mg PO BID starting this pm. (2) Substance use disorder: 06/22--mother to be contacted to remove suboxone, coordination with Adderall prescriber re: hx of OD. My suspicion is that many of his reported ADHD sx are related to bipolar disorder. 06/24 Brief intervention was offered and accepted. Intervention was greater than 5 min in length and included destroying remaining Adderall, advice on how to reduce or abstain from stimulants and opiates, and to set a specific goals for aftercare. harness worker will also assist in anticipating barriers to sobriety and in problem-solving for solutions to those problems while arranging for referral to appropriate treatment ([facility]). Inventory Assets Strengths: cooperative despite 302 (yet guarded around parsons), desire to see children Needs: outpatient treatment (dual dx) Risk Factors Assessment Male: Yes : Yes Do You Have Access To A Gun?: No Mental Health Diagnoses: Yes Substance Use Disorders: Yes Previous Attempt: Yes Previous Psychiatric Hospitalization: Yes Protective Factors Assessment Responsible for Young Children: No Interval History Chief Complaint "I feel pretty good actually, I shouldn't have stopped the Risperdal before". Review of Systems Sleep Information Total Hours of Sleep: 8.5 Meal Information Percent Meal Consumed - Breakfast: 100 Percent Meal Consumed - Lunch: 100 Percent Meal Consumed - Dinner: 100 Subjective Subjective Patient was seen & assessed and interval progress reviewed with nursing and social work. More stable mood, less internally preoccupied with auditory parsons which are essentially resolved. Sleep is normalizing. Asking appropriate questions about options re: injectables to support substance abuse recovery should he desire. Physical Exam Psychiatric Orientation: alert and + guarded Apperance: appropriately groomed and + disheveled Eye Contact: + fair eye contact Motor Behavior: no abnormal motor movements Affect: + constricted affect Mood: + depressed mood Thought Process: + thought blocking (?) and + concrete thought process Thought Content: reality based without delusions Suicidal Thoughts: denies suicidal thoughts Homicidal Thoughts: denies homicidal thoughts Hallucinations: no auditory hallucinations and no visual hallucinations Cognition: attention grossly intact and language grossly intact Estimated Intelligence: consistent with education level Judgement: + limited judgement Vital Signs (Past 24 Hours) Last Vital Signs Temp 36.7 C 06/24/20 06:30 Pulse 89 06/24/20 06:30 Resp 18 06/24/20 06:30 BP 118/75 06/24/20 06:30 Results & Data ([facility]) Current Inpatient Medications Current Inpatient Medications: Current Inpatient Medications Acetaminophen (Acetaminophen 325 Mg Tab) 650 mg PO Q4H PRN PRN Reason: Headache or Minor Fever Stop: 07/21/20 12:42 Al Hydrox/Mg Hydrox/Simethicone (Aluminum/Magnesium Susp 30 Ml Udc) 30 ml PO Q4H PRN PRN Reason: GI Upset Stop: 07/21/20 12:42 Benztropine Mesylate (Benztropine Mesylate 1 Mg Tab) 1 mg PO Q6 PRN PRN Reason: Muscle Spasm Stop: 07/22/20 09:39 Bismuth Subsalicylate (Bismuth Subsalicylate Liqd 236 Ml) 15 ml PO PRN PRN PRN Reason: Loose Stool Stop: 07/21/20 12:42 Hydroxyzine HCl (Hydroxyzine Hcl 25 Mg Tab) 50 mg PO HSZ PRN PRN Reason: Insomnia Stop: 07/21/20 12:42 Last Admin: 06/23/20 20:47 Dose: 50 mg Documented by: Hydroxyzine HCl (Hydroxyzine Hcl 25 Mg Tab) 25 mg PO Q4H PRN PRN Reason: Anxiety Stop: 07/21/20 12:42 Last Admin: 06/23/20 15:27 Dose: 25 mg Documented by: Magnesium Hydroxide (Magnesium Hydroxide Susp 30 Ml Udc) 30 ml PO DAILY PRN PRN Reason: Constipation Stop: 07/21/20 12:42 Mirtazapine (Mirtazapine Tab 15 Mg Tab) 30 mg PO HS DIOMEDES Stop: 07/21/20 21:59 Last Admin: 06/23/20 20:46 Dose: 30 mg Documented by: Nicotine Polacrilex (Nicotine Polacrilex 2 Mg Gum) 1 piece MT Q2H PRN PRN Reason: cravings Stop: 07/23/20 09:47 Last Admin: 06/23/20 17:19 Dose: 1 piece Documented by: Risperidone (Risperidone 0.5 Mg Tablet) 0.5 mg PO Q4 PRN PRN Reason: hallucinations/agitation Stop: 07/21/20 16:15 Last Admin: 06/22/20 18:15 Dose: 0.5 mg Documented by: Risperidone (Risperidone 1 Mg Tablet) 1 mg PO BID DIOMEDES Stop: 07/23/20 20:59 Last Admin: 06/24/20 08:32 Dose: 1 mg Documented by: Sodium Chloride (Sodium Chloride 0.65% Na Soln 45 Ml ([place])) 1 - 2 sprays NA PRN PRN PRN Reason: Nasal Dryness/Congestion Stop: 07/21/20 12:42 Mental Health & Subst Abuse Tx Twill Cutter Name of Twill Cutter: Shanna Talavera Phone Number for Twill Cutter: [phone] Post Discharge Appointments Primary Care Physician Name Of Family Doctor: Dr. Pena Primary Care Date of Appointment with PCP: 07/04/20 Time of Appointment with PCP: 12:30 p.m. Provider Appointment Comment: [address] Michael Luevano, [place] [address] Contact Information Discharge Discharge Address: [address], [place] [address]
[2020-06-24] MEDS: NICOTINE POLACRILEX 2 MG GUM MT PRN (09:03)
[2020-06-24] MEDS: hydrOXYzine HCl 25 MG TAB PO PRN ×2 (09:48→21:30)
[2020-06-24] MEDS: risperiDONE 0.5 MG TABLET PO PRN ×2 (13:43→18:36)
[2020-06-24] MEDS: MIRTAZAPINE TAB 15 MG TAB PO SCH (21:26)
[2020-06-25] MEDS: risperiDONE 1 MG TABLET PO SCH ×2 (08:00→20:29)
--- NOTE | 2020-06-25 11:02 | Psychiatric Progress Note ---
Date of Service June 25, 2020 Impression / Recommendations Impression 25 yo male with a history of opiate and stimulant abuse, presents s/p Adderall OD but endorses persistent aud parsons and mood swings prior to refilling Adderall. 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 ([facility] health unit) on q15 min checks (behavioral with suicide precautions) for safety. The patient will participate in group, recreational, and milieu therapies and will be offered additional individual and family sessions as clinically appropriate. He finds benefit from Remeron and would like to continue it. Reviewed that Risperdal retrial recommended given Adderall OD but his reports of mood swings and aud parsons off substances likely suggest underlying bipolar component and should only continue in combination with a mood stabilizer. Risks/benefits/alternatives reviewed re: Risperdal 0.5 mg BID to start, discussion included but was not limited to need for metabolic and TD monitoring, has metabolic panel on chart from <90 days ago. 06/23--titrate Risperdal to 1 mg PO BID starting this pm. 06/25--significant improvement, continue Risperdal BID. No abnormal motor movements. (2) Substance use disorder: 06/22--mother to be contacted to remove suboxone, coordination with Adderall prescriber re: hx of OD. My suspicion is that many of his reported ADHD sx are related to bipolar disorder. 06/24 Brief intervention was offered and accepted. Intervention was greater than 5 min in length and included destroying remaining Adderall, advice on how to reduce or abstain from stimulants and opiates, and to set a specific goals for aftercare. tray worker will also assist in anticipating barriers to sobriety and in problem-solving for solutions to those problems while arranging for referral to appropriate treatment ([facility]). Inventory Assets Strengths: cooperative despite 302 (yet guarded around parsons), desire to see children Needs: outpatient treatment (dual dx) Risk Factors Assessment Male: Yes : Yes Do You Have Access To A Gun?: No Mental Health Diagnoses: Yes Substance Use Disorders: Yes Previous Attempt: Yes Previous Psychiatric Hospitalization: Yes Protective Factors Assessment Responsible for Young Children: No Interval History Chief Complaint "I'm so much better, I should have never stopped my medication". Review of Systems Sleep Information Total Hours of Sleep: 8.5 Meal Information Percent Meal Consumed - Breakfast: 100 Percent Meal Consumed - Lunch: 100 Percent Meal Consumed - Dinner: 100 Subjective Subjective Patient was seen & assessed and interval progress reviewed with nursing and social work. Meeting with mother went well, she confirmed no Suboxone in this things. He is pleased that he may have a job at [employer] and is looking forward to discharge tomorrow am and returning to the gym. No med concerns. Hallucinations have totally resolved. Physical Exam Psychiatric Orientation: alert Apperance: appropriately groomed Eye Contact: good eye contact Motor Behavior: no abnormal motor movements Speech: normal rate/rhythm/volume of speech Affect: euthymic affect Thought Process: linear/logical thought process Thought Content: reality based without delusions Suicidal Thoughts: denies suicidal thoughts Homicidal Thoughts: denies homicidal thoughts Hallucinations: no auditory hallucinations and no visual hallucinations Insight: + limited insight (improving) Judgement: + limited judgement Vital Signs (Past 24 Hours) Last Vital Signs Temp 36.7 C 06/25/20 06:26 Pulse 96 H 06/25/20 06:27 Resp 18 06/25/20 06:26 BP 137/73 06/25/20 06:27 Results & Data ([facility]) Current Inpatient Medications Current Inpatient Medications: Current Inpatient Medications Acetaminophen (Acetaminophen 325 Mg Tab) 650 mg PO Q4H PRN PRN Reason: Headache or Minor Fever Stop: 07/21/20 12:42 Al Hydrox/Mg Hydrox/Simethicone (Aluminum/Magnesium Susp 30 Ml Udc) 30 ml PO Q4H PRN PRN Reason: GI Upset Stop: 07/21/20 12:42 Benztropine Mesylate (Benztropine Mesylate 1 Mg Tab) 1 mg PO Q6 PRN PRN Reason: Muscle Spasm Stop: 07/22/20 09:39 Bismuth Subsalicylate (Bismuth Subsalicylate Liqd 236 Ml) 15 ml PO PRN PRN PRN Reason: Loose Stool Stop: 07/21/20 12:42 Hydroxyzine HCl (Hydroxyzine Hcl 25 Mg Tab) 50 mg PO HSZ PRN PRN Reason: Insomnia Stop: 07/21/20 12:42 Last Admin: 06/24/20 21:30 Dose: 50 mg Documented by: Hydroxyzine HCl (Hydroxyzine Hcl 25 Mg Tab) 25 mg PO Q4H PRN PRN Reason: Anxiety Stop: 07/21/20 12:42 Last Admin: 06/24/20 09:48 Dose: 25 mg Documented by: Magnesium Hydroxide (Magnesium Hydroxide Susp 30 Ml Udc) 30 ml PO DAILY PRN PRN Reason: Constipation Stop: 07/21/20 12:42 Mirtazapine (Mirtazapine Tab 15 Mg Tab) 30 mg PO HS DIOMEDES Stop: 07/21/20 21:59 Last Admin: 06/24/20 21:26 Dose: 30 mg Documented by: Nicotine Polacrilex (Nicotine Polacrilex 2 Mg Gum) 1 piece MT Q2H PRN PRN Reason: cravings Stop: 07/23/20 09:47 Last Admin: 06/24/20 09:03 Dose: 1 piece Documented by: Risperidone (Risperidone 0.5 Mg Tablet) 0.5 mg PO Q4 PRN PRN Reason: hallucinations/agitation Stop: 07/21/20 16:15 Last Admin: 06/24/20 18:36 Dose: 0.5 mg Documented by: Risperidone (Risperidone 1 Mg Tablet) 1 mg PO BID DIOMEDES Stop: 07/23/20 20:59 Last Admin: 06/25/20 08:00 Dose: 1 mg Documented by: Sodium Chloride (Sodium Chloride 0.65% Na Soln 45 Ml ([place])) 1 - 2 sprays NA PRN PRN PRN Reason: Nasal Dryness/Congestion Stop: 07/21/20 12:42 Mental Health & Subst Abuse Tx Psychiatrist Name of Psychiatrist: [facility] Psychiatrist's Psychiatric Appointment Comment: Telehealth Therapist Name of Therapist: [facility] Therapist's Therapy Appointment Comment: Telehealth Photography Instructor Name of Photography Instructor: Shanna Adamson Phone Number for Photography Instructor: [phone] Case Management Appointment Comment: Please follow up Post Discharge Appointments Primary Care Physician Name Of Family Doctor: Dr. Pena Primary Care Date of Appointment with PCP: 07/04/20 Time of Appointment with PCP: 12:30 p.m. Provider Appointment Comment: [address] [place] [address] Dr Michael Luevano, [place] [address] Contact Information Discharge Discharge Address: [facility] [address], [place] [address]
[2020-06-25] MEDS: hydrOXYzine HCl 25 MG TAB PO PRN (11:35)
[2020-06-25] MEDS: MIRTAZAPINE TAB 15 MG TAB PO SCH (20:30)
[2020-06-26] MEDS: risperiDONE 1 MG TABLET PO SCH (08:31)
--- NOTE | 2020-06-26 09:14 | Discharge Summary ---
Date of Service June 26, 2020 History of Present Illness Per consult service: Documentation suggests the patient ingested #30 - 30mg Adderall, reported he is going through "a bunch of shit" and indicated a desire to end his life. Psychiatric consultation was requested to evaluate patient s/p suicide attempt by intentional overdose. [address] warrant completed by police, statement reads: On 06/18/20 Jair called his mother and told her he took 30 Adderall in an attempt to kill himself. His mother called 911. When I arrived Jair told me he was depressed and felt everybody in his life would be better off if he was . Jair said he took the 30 pills to . Jair told me he suffers from depression and anxiety. Alok was admitted to [facility] in 03/2020 with psychosis and auditory hallucinations telling him to kill himself - initially concern that this may have been related to Adderall misuse. Pt was discharged on mirtazapine 15mg qHS; risperidone 1mg BID, 0.5mg BID prn; Suboxone was continued, and Adderall was discontinued. He was referred to [facility] for D&A therapy and medication management. Jair states that he has been having an increase in non-specific auditory parsons (won't elaborate much) for 2 months, even prior to misuse of Adderall. He states that he spends they day in bed either with restlessness and racing thoughts when he doesn't sleep well or with amotivation and low mood. He has marked difficulty making eye contact and elaborating on his symptoms. He had told Ghada Maier PA-C: Pt does admit to low mood, poor appetite, inconsistent sleep, and hopelessness/worthlessness. He admits to awareness that he could not work with his current mental health instability. He continues to endorse auditory hallucinations of voices "talking shit about my kids, shit about me being a father, shit about me getting back to work." He states these voices sound "like they're coming from a speaker system under my house, just talking shit like through a negar phone." Pt denies that they have been commanding him to harm himself, but admits they are distressing. He states he regularly will go more than 2 days without sleep (denies fueled by Adderall). He doesn't seem to care about much but ended up not wanting to sign in as he was hoping to see his kids for Thanksgiving. "I don't want any of that stuff anymore" referring to his suboxone and Adderall. He isn't clear whether he is or isn't hearing things here in the hospital but is willing to "take something" to help. States Risalexdal was "fine" just didn't continue it when he left the hospital in Mar. Physical Exam Psychiatric Orientation: alert and cooperative Apperance: appropriately dressed, appropriately groomed and appeared stated age Eye Contact: good eye contact Motor Behavior: steady gait and station and no abnormal motor movements Speech: normal rate/rhythm/volume of speech Affect: euthymic affect and mood congruent with affect "Good." Thought Process: goal directed thought process Thought Content: reality based without delusions Suicidal Thoughts: denies suicidal thoughts Homicidal Thoughts: denies homicidal thoughts Hallucinations: no auditory hallucinations and no visual hallucinations Cognition: recent memory grossly intact, attention grossly intact and language grossly intact Insight: + fair insight Judgement: + fair judgement Vital Signs (Past 24 Hours) Last Vital Signs Temp 36.7 C 06/26/20 06:29 Pulse 95 H 06/26/20 06:29 Resp 20 06/26/20 06:29 BP 152/92 H 06/26/20 06:29 Principal Diagnosis Substance induced psychosis Substance abuse Psychiatric Data The patient was hospitalized on the medical service for 3 days, and on the behavioral health unit on a 302 involuntary commitment for 5 days. Suboxone and Adderall were discontinued when initially admitted medically, due to the overdose on Adderall and his report that he was no longer taking Suboxone and did not want to continue it. He was evasive regarding recent substance use, but reported that he had asked his PCP for an Adderall prescription in order to get high. There was a question of bipolar disorder, as he reported going more than 2 days without sleep at times, anhedonia, and auditory hallucinations of voices saying negative things about him. He admitted he had not been adherent with treatment after his hospitalization on our unit in March, had stopped taking medication and did not follow-up with outpatient treatment. He was resumed on risperidone and the dose titrated to 1 mg twice daily with good effect, auditory hallucinations resolved, and he consistently denied suicidal thoughts. He was continued on his home dose of mirtazapine, which he said was helpful for sleep. He also utilized hydroxyzine for sleep and anxiety while on the unit, and reported it was beneficial. Education was provided about the risks of ongoing substance abuse and recommendations for outpatient treatment, and a referral was made to [facility]. His mother brought in his medications from home, and discontinued medications were disposed of prior to discharge. He had a family meeting with the social media assistant and his mother on 06/24/2020; his mother shared concerns about the patient's behavior, stating he would never allow her to monitor his medication, although he had agreed when in the hospital in the past. She also reported that he did not follow-up with scheduled outpatient appointments, and felt he needed to make a commitment to change if he wanted things to improve. The patient agreed with this, stating he knows he needs to make changes, and has had difficulty being open with others about his struggles. He was pleased to hear that his mother had spoken to her boss at a local [employer], who was willing to talk to the patient about a possible job. There was discussion of the recommended outpatient treatment and the importance of engaging in therapy and substance abuse treatment. Day of Discharge Assessment Staff report the patient attended and participated appropriately in groups, has been spending his free time interacting with peers. He continues to deny suicidal thoughts and auditory hallucinations, and told staff mood had improved, was in 8/out of 10, and that he felt ready for discharge. 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 On my assessment, he states mood has improved since admission, auditory hallucinations have resolved, and denies suicidal thoughts or safety concerns with discharge. He reports medication has been helpful, and says he does not know why he stopped it last time, but plans to continue to take it. In exploring this further, he states that he might have stopped it because he got "overwhelmed," as he was prescribed 6-7 different psychotropic medications. He is glad to be off of some of the medications, and feels his current medication regimen is working well for him. He thinks the hydroxyzine has been helpful and is requesting a prescription for it at discharge. He reports good sleep and appetite, and willingness to follow-up with outpatient treatment. Transition of Care Transition Of Care Record: was reviewed with the patient Advance Directives Advance Directives Information Provided: Yes Advance Directives: No Mental Health Advance Directive: No Advance Directives on File: No Living Will: No Power of Domestic Technician: No Advance Directives Reason:: Declines as Mental Health Visit. Risk Factors Assessment Risk factors were mitigated by admission to the inpatient unit, use of medications to target mood and psychotic symptoms, education about his diagnoses and the recommended treatment, discontinuing medications that he has been abusing, education about substance abuse disorders and the need for ongoing treatment, referral to [facility] for psychiatry and therapy, family meeting with his mother whom he lives with, coordination of care with his PCP who has been prescribing medications, involvement in groups and therapy, working on healthy coping skills and a discharge safety plan. Mood has improved, suicidal thoughts and auditory hallucinations have resolved, and he is actively participated in treatment. He is eating and sleeping well, taking medications as prescribed, and tending to ADLs independently. His 302 expires today, and he is requesting discharge. As he is no longer at acute risk of harm to himself, he can be discharged and managed as an outpatient at this time. Male: Yes : Yes Do You Have Access To A Gun?: No Mental Health Diagnoses: Yes Substance Use Disorders: Yes Previous Attempt: Yes Previous Psychiatric Hospitalization: Yes Hopelessness: No Smoker: No Protective Factors Assessment Nondenominational Beliefs: No : No Responsible for Young Children: No Employed: No Stable Relationships: No Supportive Family: Yes Tobacco Cessation at Discharge Tobacco Cessation Medication Prescribed at Discharge: Not Applicable/Non-Smoker Total Time Total Time Spent: Greater Than 30 Minutes Total Time Includes: Examination of the patient, Discharge Planning and Medication Reconciliation Hospital Course (1) Psychotic disorder due to psychoactive substance: 06/22--The patient was admitted to the [facility] on q15 min checks (behavioral with suicide precautions) for safety. The patient will participate in group, recreational, and milieu therapies and will be offered additional individual and family sessions as clinically appropriate. He finds benefit from Remeron and would like to continue it. Reviewed that Risperdal retrial recommended given Adderall OD but his reports of mood swings and aud parsons off substances likely suggest underlying bipolar component and should only continue in combination with a mood stabilizer. Risks/benefits/alternatives reviewed re: Risperdal 0.5 mg BID to start, discussion included but was not limited to need for metabolic and TD monitoring, has metabolic panel on chart from <90 days ago. 06/23--titrate Risperdal to 1 mg PO BID starting this pm. 06/25--significant improvement, continue Risperdal BID. No abnormal motor movements. 06/26--Discharge to home with mother. Family meeting was held, and she is supportive and in agreement of discharge. -Prescription issued for risperidone 1 mg twice daily. Fasting labs from 04/06/2020 reviewed for monitoring on an atypical antipsychotic: Glucose 88, FLP within normal limits. -Discontinued Adderall and Suboxone due to abuse/misuse/exacerbation of psychosis. -Referred to [facility] for substance abuse treatment and therapy. Follow-up with case work aide at [facility]. -Mother brought in home medications, and discontinue medications will be disposed of by the pharmacy (Adderall, buspirone, or prescription of risperidone). (2) Substance use disorder: 06/22--mother to be contacted to remove suboxone, coordination with Adderall prescriber re: hx of OD. My suspicion is that many of his reported ADHD sx are related to bipolar disorder. 06/24--Brief intervention was offered and accepted. Intervention was greater than 5 min in length and included destroying remaining Adderall, advice on how to reduce or abstain from stimulants and opiates, and to set a specific goals for aftercare. composition siding worker will also assist in anticipating barriers to sobriety and in problem-solving for solutions to those problems while arranging for referral to appropriate treatment (carolyn Huertas). 06/26--follow-up at [facility] for substance abuse treatment. Avoid prescription of controlled substances or any medications that are addictive or abusable, due to the high risk of abuse/misuse/negative outcomes. Mental Health & Subst Abuse Tx Psychiatrist Name of Psychiatrist: Aleksandar Spicer Psychiatrist's Psychiatric Appointment Comment: Telehealth Therapist Name of Therapist: [facility] Therapist's Therapy Appointment Comment: Telehealth Scientific Programmer Analyst Name of Scientific Programmer Analyst: Shanna Adamson Phone Number for Scientific Programmer Analyst: [phone] Case Management Appointment Comment: Please follow up Post Discharge Appointments Primary Care Physician Name Of Family Doctor: Dr. Pena Primary [facility] Date of Appointment with PCP: 07/04/20 Time of Appointment with PCP: 12:30 p.m. Provider Appointment Comment: [address] [place] [address] Dr Michael Luevano, [place] [address] Smoking Cessation Counseling Tobacco Cessation Medication Prescribed at Discharge: Not Applicable/Non-Smoker Contact Information Discharge Discharge Address: [place] [address] Discharge Plan Discharge Items Patient Disposition: Home - Self-Care Reason For Visit: INTENTIONAL OVERDOSE Discharge Diagnosis: Substance-induced psychosis Substance use disorder (stimulants, opiates, cannabis, and others) Activity: Per Instructions section Non-emergency contact: Primary Care Provider, Psychiatrist, Therapist and Lubrication Servicer Call non-emergency contact if: you have any medication questions and your symptoms worsen Follow-up/Referrals: Msua Pena MD [Primary Care Provider] - Diet: Regular Addtl Attending Provider Instructions: SPECIAL CARE INSTRUCTIONS: 1. Follow through with your scheduled aftercare appointments. If unable to keep an appointment, please call to reschedule. 2. Take your medication only as prescribed. Medication should not be changed or stopped without the approval of your doctor. In the event of worsening symptoms or concerns about side effects, contact your doctor immediately. 3. Utilize new healthy coping skills, anger management skills, and stress management skills learned during your hospitalization. Journal feelings and process them with a support person. Identify stressors or situations that may result in relapse, deterioration or inappropriate behaviors and develop a plan to deal with those issues. 4. If your coping skills are ineffective and you are in crisis, contact your outpatient providers for direction. If unable to reach your providers, please call the [facility] CRISIS LINE AT , go to the [facility] walk-in center at [address], [address], [place], or go to the closest Emergency Room. 5. Avoid alcohol and un-prescribed drugs. 6. You have been provided with the Mental Health Advance Directives Pamphlet for your review. AFTERCARE APPOINTMENTS: * Please call your insurance company prior to your scheduled appointment to confirm your aftercare providers are covered. Take your insurance information to your appointments. WHO TO CALL AND WHEN: Medical Emergencies: For questions or emergencies related to your hospital stay, please contact the Inpatient Behavioral Health Unit at [phone]. A school bus driver is on-call 17/02 for the Behavioral Health Unit for emergencies At any time you feel your situation is an emergency, you may also call 911 immediately. Pending Studies at Discharge: No Stand-Alone Forms: My [facility], Smoking Cessation Medications and DC Order Prescriptions: New risperidone 1 mg Tablet 1 mg PO BID Qty: 60 RF: 0 hydroxyzine HCl 50 mg tablet 50 mg PO UD PRN (Reason: sleep or anxiety as below) Qty: 45 RF: 0 Continued mirtazapine [Remeron] 30 mg tablet 30 mg PO HS RF: 0 Discontinued buspirone 5 mg tablet RF: 0 dextroamphetamine-amphetamine 30 mg tablet RF: 0 buprenorphine-naloxone 8-2 mg tablet, sublingual SUBLINGUAL RF: 0 Discharge Orders: Discharge Order (Routine); Ordered 06/26/20 Ordered By: Rochelle Han Admission Data Admit Date/Time: 06/21/20 13:13 Attending Provider: Rochelle Han Admit Provider: Rochelle Han Primary Care Provider: Musa Pena Other Interventions: Discharge Summary Assessment (RN) Last Done: 06/24/20 12:53 PSY Interdisciplinary Discharge Planning Last Done: 06/25/20 08:00 Coding Level of Care Code 67300 D/C day mgmt > 30 min Diagnoses Psychotic disorder due to psychoactive substance F19.959 Substance use disorder F19.90
[2020-06-26] MEDS: hydrOXYzine HCl 25 MG TAB PO PRN (09:56)
[2020-06-26] MEDS ORDERED: DESTROY THIS MEDICATION SCH (10:00)
== END 2020-06-26 10:10 | disposition home or self-care (01) | DRG 897 ==
LOC: 3S 13:13